=== PATIENT | female | born 1940 | race Caucasian/White ===

== ENCOUNTER 2025-08-21 17:51 | Inpatient (IN) | payer MEDICARE, SELFPAY ==
[2025-08-21] VITALS (8 sets, daily range): BP systolic 138–183; BP diastolic 86–104; PULSE 86–112; RESP 14–97; TEMP 36.9–37.3; O2SAT 95–100; BMI 30.7
--- NOTE | 2025-08-21 18:18 | XR_ITS ---
EXAMINATION: AP chest single view TECHNIQUE: AP portable upright chest single view Date and time: August 21, 2025, 1840 hours INDICATIONS: Shortness of breath today. FINDINGS: Normal heart size Mild vascular congestion. Prominent osteopenia IMPRESSION: No pneumonia or pulmonary edema Mild vascular congestion
--- NOTE | 2025-08-21 18:20 | EKG_ITS ---
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: : 1940 Requested By: Sara Valdez Order Number: [id number] Reading MD: Sara Valdez Measurements Intervals [place] Rate: 101 P: MO: QRS: -40 QRSD: 133 T: 23 QT: 378 QTc: 491 Interpretive Statements ATRIAL FIBRILLATION WITH RAPID VENTRICULAR RESPONSE LEFT AXIS DEVIATION [QRS AXIS < -30] RIGHT BUNDLE BRANCH BLOCK [120+ ms QRS DURATION, UPRIGHT V1, 40+ ms S IN I/aVL/V4/V5/V6] MODERATE VOLTAGE CRITERIA FOR LVH, CONSIDER NORMAL VARIANT [MEETS CRITERIA IN ONE OF: R(aVL), S(V1), R(V5), R(V5/V6)+S(V1)] POSSIBLE ANTERIOR MYOCARDIAL INFARCTION , PROBABLY OLD [30 ms Q WAVE IN V3/V4, OR R < 0.2 mV IN V4] No previous ECG available for comparison /store/S0/[id number].pdf
--- NOTE | 2025-08-21 18:20 | XR_ITS ---
Examination: CT brain head without contrast. 2-D sagittal coronal reconstructions Date and time of exam: August 21, 2025, 1858 hours INDICATIONS: Onset altered mental status today CTDI: vol (mGy): 47.4 DLP: (mGycm): 854 Technique: Multiple CT axial sections of the brain have been obtained, 5 mm slice thickness. Contrast has not been administered. 2-D sagittal, coronal reconstructions have been obtained Low dose protocols were performed. One or more of the following dose reduction techniques were used; automated exposure control, adjustment of the mA and/or KV according to patient size, use of iterative reconstruction technique. Findings: No significant ventricular enlargement. Extensive chronic microvascular white matter change Intra-axial or extra-axial hemorrhage density is not seen. No mass effect or midline shift Basal cisterns are not remarkable. Fourth ventricle is midline. Cranial vault intact. Impression: Negative for acute hemorrhage, mass effect or midline shift Advise clinical correlation and follow-up accordingly
--- NOTE | 2025-08-21 18:31 | PD.EDAMS ---
Altered Mental Status RME/HPI General Chief Complaint: Altered Mental Status Stated Complaint: AMS Time Seen by Provider: 08/21/25 18:18 Arrival date/time: 08/21/25 17:51 Limitations: no limitations RME / HPI RME / HPI narrative: Dr. Leal's Main ED Evaluation: 85yo female with a history of dementia, DM, paroxysmal aFib on Eliquis, CKD BIBA from [facility] presents to the ED for a chief complaint of AMS. Per EMS, patient has not been acting herself all day today. Normally, she is able to speak some words, but reportedly has not been communicating today. Per SNF paperwork, patient is normally AAOx2 with some confusion. Of note, patient is a DNR with selective treatment. Full ROS is unobtainable due to the patient's AMS. Related Data Allergies Allergy/AdvReac Type Severity Reaction Status Date / Time No Known Allergies Allergy Verified 08/21/25 18:01 Review of Systems Review of Systems ROS Unobtainable: unobtainable due to mental status ED Exam General Limitations: Present no limitations General appearance: Present alert and other (withdraws to pain stimuli, turns her head to voice) Head Head exam: Present atraumatic Eye Eye exam: Present normal appearance, PERRL (3 mm bilaterally) and EOMI ENT ENT exam: Present normal exam, normal oropharynx and mucous membranes dry Neck Neck exam: Present normal inspection, full ROM and trachea midline Chest Chest inspection: Present normal inspection and symmetric chest wall rise Respiratory Respiratory exam: Present normal lung sounds bilaterally Cardiovascular Cardiovascular exam: Present regular rate, normal rhythm and normal heart sounds Abdominal Exam Abdominal exam: Present soft Extremities Exam Extremities exam: Present normal inspection Neurological Exam Neurological exam: Present alert and other (withdraws to pain stimuli, turns her head to voice) Skin Skin exam: Present warm, dry, intact and other (decreased skin turgor) Course Course Course Narrative: CXR is ordered for determining the etiology of AMS. Quality Measures none Orders Category Date Time Status Admit to Inpatient Status Routine Admission 08/21/25 23:00 Active Patient Condition Routine Admission 08/21/25 22:59 Ordered Aspiration precautions NOW Care 08/21/25 23:02 Active Bladder Scan Q4H Care 08/21/25 22:59 Active COVID-19 Screening Questionnaire NOW Care 08/21/25 20:59 Active Decision to Admit X1 Care 08/21/25 20:59 Completed EKG (ED ONLY) *Do not use* NOW Care 08/21/25 18:20 Completed In and Out Catheter Q4H Care 08/21/25 22:59 Active Miscellaneous Nursing Order X1 Care 08/21/25 23:04 Active NPO NOW Care 08/21/25 23:02 Active Neuro Check Q4H Care 08/21/25 22:59 Active Notify provider NEEDED Care 08/21/25 22:59 Active Obtain weight daily Care 08/21/25 23:02 Active Strict Intake and Output Routine Care 08/21/25 23:02 Ordered Diet NPO (NOW) Diet 08/21/25 23:[address] head/brain wo con Stat Exams 08/21/25 18:20 Completed CXRP [XR chest 1V portable] Stat Exams 08/21/25 18:18 Completed EKG (ED Only) Stat Exams 08/21/25 18:20 Draft BNP [B-Type Natriuretic Peptide] Stat Lab 08/21/25 19:17 Completed CBC AM DRAW Lab 08/22/25 05:00 Ordered CBC AM DRAW Lab 08/23/25 05:00 Ordered CBC AM DRAW Lab 08/24/25 05:00 Ordered CBC Stat Lab 08/21/25 19:17 Completed CMP [Comprehensive Metabolic Panel] Stat Lab 08/21/25 19:17 Completed Comprehensive Metabolic Panel AM DRAW Lab 08/22/25 05:00 Ordered Comprehensive Metabolic Panel AM DRAW Lab 08/23/25 05:00 Ordered Comprehensive Metabolic Panel AM DRAW Lab 08/24/25 05:00 Ordered Lactate (Lactic Acid) Stat Lab 08/21/25 19:17 Completed Magnesium AM DRAW Lab 08/22/25 05:00 Ordered Magnesium AM DRAW Lab 08/23/25 05:00 Ordered Magnesium AM DRAW Lab 08/24/25 05:00 Ordered Phosphorous AM DRAW Lab 08/22/25 05:00 Ordered Phosphorous AM DRAW Lab 08/23/25 05:00 Ordered Phosphorous AM DRAW Lab 08/24/25 05:00 Ordered Troponin I Stat Lab 08/21/25 19:17 Completed Urinalysis Stat Lab 08/21/25 18:31 Completed Urine Culture Stat Lab 08/21/25 18:31 Received Valporic Acid (Depak)* Stat Lab 08/21/25 19:17 Received Acetaminophen Tab [Tylenol Tab] Med 08/21/25 22:59 Active 650 mg PO Q6HR PRN Enoxaparin [Lovenox] Med 08/22/25 09:00 Discontinued 40 mg SC QDAY Ondansetron Inj [Zofran Inj] Med 08/21/25 22:59 Active 4 mg IVP Q6H PRN Code Status Routine Oth 08/21/25 22:59 Ordered Oxygen Delivery PRN RT 08/21/25 22:59 Active Vital Signs Vital signs: Vital Signs Temperature 99.1 F 08/21/25 18:45 Pulse Rate 91 08/21/25 18:45 Respiratory Rate 16 08/21/25 18:45 Blood Pressure 147/88 H 08/21/25 18:45 Pulse Oximetry (%) 98 08/21/25 18:45 Oxygen Delivery Method Room Air 08/21/25 18:45 Altered Mental Status MDM Narrative MDM Narrative:: Scribe Attestation: 08/21/25 - Elba Haddad am scribing for and in the presence of Dr. Aponte. Elderly presents with 1 day history of change in her mental status she is normally alert and oriented x 2. Nurses send and however report does not show that she is hypotensive prior to arrival. The patient does not reported to be afebrile either. While in the emergency department the patient is noted to have slightly elevated blood pressure initially 147/88 otherwise no SIRS criteria. White count is 8.5 and otherwise normal. Hemoglobin is slightly decreased at 35. Otherwise glucose is normal. Troponin is negative. BNP slightly elevated but the patient clinically is not in CHF. Patient has evidence of UTI with 617 white cells with positive nitrates Patient noted to be on seizure medication and valproic acid is sent. Head CT reviewed interpreted by me. No evidence of bleed, fracture, or mass. Radiology interpretation is reviewed. Discussed with the resident on-call who agrees to admit the patient. Patient data External records reviewed:: [facility] previous records (Per chart review, patient has no previous ED visits or admissions to this facility.), EMS form and Detention records (Per [facility], patient is a DNR with selective treatment. Of note, patient is also on Eliquis 2.5mg BID.) Clinical information provided by:: patient and EMS Social determinants that could affect healthcare access:: housing (SNF resident) Patient has the following chronic illnesses:: dementia, DM, paroxysmal aFib, CKD How is presenting disease/condition affected by chronic disease/condition?: exacerbated by Evaluation data The following diagnostics were reviewed and interpreted by me:: lab results, radiology exam(s) and EKG tracing(s) Lab and/or radiology exams considered but not ordered:: none Interpretation Summary: EKG done at 1843, aFib, rate of 101, RBBB, LVH, QTc: 436, no STEMI, according to my interpretation. [facility] Report Signed Patient: LU MADERA [facility]. Record#: [id number] Birthdate: 1940 Age/Sex: 85 / F Location: [facility]X Attending Dr: Ordering Physician: Sara Leal MD Date of Service: 08/21/25 Procedure(s): XR chest 1V portable Accession Number(s): [id number] cc: Nadya Rebollar MD; Parish Head MD; Sara Leal MD~ EXAMINATION: AP chest single view TECHNIQUE: AP portable upright chest single view Date and time: August 21, 2025, 1840 hours INDICATIONS: Shortness of breath today. FINDINGS: Normal heart size Mild vascular congestion. Prominent osteopenia IMPRESSION: No pneumonia or pulmonary edema Mild vascular congestion Dictated By: Parish Head MD Signed By: <Electronically signed by Parish Head MD in OV> 08/21/25 1853 [facility] Signed Patient: LU MADERA [facility]. Record#: [id number] Birthdate: 1940 Age/Sex: 85 / F Location: SERX Attending Dr: Ordering Physician: Sara Leal MD Date of Service: 08/21/25 Procedure(s): CT head/brain wo con Accession Number(s): [id number] cc: Nadya Rebollar MD; Parish Head MD; Sara Leal MD~ Examination: CT brain head without contrast. 2-D sagittal coronal reconstructions Date and time of exam: August 21, 2025, 1858 hours INDICATIONS: Onset altered mental status today CTDI: vol (mGy): 47.4 DLP: (mGycm): 854 Technique: Multiple CT axial sections of the brain have been obtained, 5 mm slice thickness. Contrast has not been administered. 2-D sagittal, coronal reconstructions have been obtained Low dose protocols were performed. One or more of the following dose reduction techniques were used; automated exposure control, adjustment of the mA and/or KV according to patient size, use of iterative reconstruction technique. Findings: No significant ventricular enlargement. Extensive chronic microvascular white matter change Intra-axial or extra-axial hemorrhage density is not seen. No mass effect or midline shift Basal cisterns are not remarkable. Fourth ventricle is midline. Cranial vault intact. Impression: Negative for acute hemorrhage, mass effect or midline shift Advise clinical correlation and follow-up accordingly Dictated By: Parish Head MD Signed By: <Electronically signed by Parish Head MD in OV> 08/21/252023 Medications / Prescriptions Medications or Prescriptions considered but not ordered:: none Medication administrations:: Medication Administration History Acetaminophen (Acetaminophen 325 Mg Tablet) 650 mg PO Q6HR PRN PRN Reason: PAIN (1-3) OR FEVER > 100.4 Stop: 09/20/25 22:58 Apixaban (Apixaban 2.5 Mg Tablet) 2.5 mg PO BID JACKELINE Stop: 09/21/25 08:59 Dextrose (Dextrose 50%-Water Inj 50 Ml Syringe) 25 ml IV Q15MIN PRN PRN Reason: BG 50-70 responsive npo pt Stop: 09/20/25 23:50 Dextrose (Dextrose 50%-Water Inj 50 Ml Syringe) 50 ml IV Q15MIN PRN PRN Reason: BG <50 OR BG <70 & pt unresponsive Stop: 09/20/25 23:50 Glucagon (Glucagon Inj 1 Mg Vial) 1 mg IM Q15MIN PRN PRN Reason: BG <70, and no IV access Ceftriaxone Sodium/Dextrose (Rocephin/D5w 1gm Iv Premix) 1 gm in 50 mls @ 100 mls/hr IV QDAY JACKELINE Stop: 08/28/25 23:07 Last Infusion: 08/22/25 00:06 Dose: Infused Documented By: Admin: 08/21/25 23:34 Dose: 100 mls/hr Documented By: MULUGETA Lactated Ringer's (Lactated Ringers) 1,000 mls @ 75 mls/hr IV .[id number] [facility] Stop: 08/22/25 15:34 Last Admin: 08/22/25 02:23 Dose: 75 mls/hr Documented By: MULUGETA Insulin Human Lispro (Insulin Lispro (Admelog) 1 Unit/0.01 Ml Unit) 0 unit SC Q6H [facility]; Protocol Stop: 09/20/25 23:44 Last Admin: 08/22/25 00:03 Dose: Not Given Documented By: MULUGETA Non-Admin Reason: Change of Condition Labetalol HCl (Labetalol Inj 5 Mg/Ml Vial 4 Ml) 10 mg IVP Q4H PRN PRN Reason: SBP >170 Stop: 09/20/25 23:04 Metoprolol Tartrate (Metoprolol Tartrate 25 Mg Tablet) 25 mg PO BID [facility] Stop: 09/21/25 08:59 Ondansetron HCl (Ondansetron Inj 2 Mg/Ml Inj 2 Ml) 4 mg IVP Q6H PRN; Protocol PRN Reason: NAUSEA OR VOMITING Stop: 09/20/25 22:58 Polyethylene Glycol (Polyethylene Glycol 17 Gm Packet) 17 gm PO QDAY [facility] Stop: 09/21/25 08:59 Sennosides (Senna Tablet) 1 tab PO QDAY [facility]; Protocol Stop: 09/21/25 08:59 Discontinued Medications Enoxaparin Sodium (Enoxaparin Sod Inj 40 Mg/0.4 Ml Syringe) 40 mg SC QDAY [facility] Stop: 09/05/25 08:59 Heparin Sodium (Porcine) (Heparin Sod Inj 5000 Unit/Ml Vial) 5,000 unit SC Q12HR JACKELINE Stop: 09/04/25 23:29 Last Admin: 08/21/25 23:35 Dose: 5,000 unit Documented By: MULUGETA Co-signed By: DANY Lactated Ringer's (Lactated Ringers) 1,000 mls @ 999 mls/hr IV .Q1H1M ONE Stop: 08/22/25 02:07 Last Infusion: 08/22/25 02:24 Dose: Infused Documented By: Admin: 08/22/25 01:22 Dose: 999 mls/hr Documented By: MULUGETA Metoprolol Tartrate (Metoprolol Tartrate 25 Mg Tablet) 25 mg PO BID JACKELINE Stop: 09/20/25 23:14 Last Admin: 08/22/25 00:56 Dose: Not Given Documented By: MULUGETA Non-Admin Reason: Cancelled by Provider see above Consultations Consultation(s) initiated? (list below): Yes Consultation #1 (Physician, Specialty, Details): Discussed case with the resident physician, attending Dr. Jefferson from Hospitalist service regarding admission. Discussed patients ED course, exam findings, labs, and radiology results. The Hospitalist agrees to accept the patient for admission. Time: 20:52 Diagnosis Differential diagnosis altered mental status: other (UTI, dehydration, electrolyte abnormality) Most likely diagnosis given after review of the tests above:: altered mental status, UTI Admission Indicated Admission indicated?: indicated Admission Request Was there a request for admission?: Yes Admission Attestation Admission request attestation: Discussed case with [] from Hospitalist service regarding admission. Discussed patients ED course, exam findings, labs, and radiology results. The Hospitalist [agrees,declines] to accept the patient for admission. Disposition Plan Disposition Plan: Admit Discharge Plan Plan Patient Disposition: Admit Acute Care w/in Hospital Patient condition on transfer: Stable Problem List Clinical Impression: Altered mental status, UTI (urinary tract infection)
[2025-08-21 18:45] LABS: Collection Type, Urine Catheter; Squamous Epithelial Cell,Urine 0 /hpf (0-5)
[2025-08-21 18:54] LABS: Amorphous Crystals,Urine Present (Absent); Bilirubin,Urine Negative (Negative); Blood,Urine 3+ (Negative); Color,Urine Yellow (Lt Yel-Yel); Glucose, Urine Negative (Negative); Ketones,Urine Negative (Negative); Leukocyte Esterase,Urine Positive (Negative); Nitrite,Urine Positive (Negative); PH,Urine 7.0 (5.0-7.0); Protein,Urine 3+ (Neg - Trace); RBC,Urine 328 /hpf (0-3); Specific Gravity,Urine 1.020 (1.001-1.035); Transitional Epi Cells,Urine 2 /hpf (0-5); Urobilinogen,Urine 2.0 mg/dL (0.0-1.0); WBC,Urine 617 /hpf (0-5)
[2025-08-21 18:56] LABS: Clarity,Urine Turbid (Clear/Hazy)
[2025-08-21 19:28] LABS: Lactate (Lactic Acid) 1.6 mMol/L (0.4-2.0)
[2025-08-21 19:34] LABS: Basophils # (Auto) 0.1 Thou/mm3 (0.0-0.2); Basophils % (Auto) 1 % (0-2.5); Eosinophils # (Auto) 0.2 Thou/mm3 (0.0-0.5); Eosinophils % (Auto) 3 % (0-10); Hematocrit 35.6 % (36.0-46.0); Hemoglobin 11.5 g/dL (12.0-16.0); Immature Granulocytes Auto 0.04 Thou/mm3 (0.00-0.00); Lymphocytes # (Auto) 2.7 Thou/mm3 (1.0-4.8); Lymphocytes % (Auto) 32 % (10-50); Mean Corpuscular HGB Conc 32.3 g/dl (31.0-37.0); Mean Corpuscular Hemoglobin 29.8 pg (25.0-35.0); Mean Corpuscular Volume 92 fL (80-100); Monocytes # (Auto) 0.8 Thou/mm3 (0.0-0.8); Monocytes % (Auto) 9 % (0-12); Neutrophils # (Auto) 4.7 Thou/mm3 (1.8-7.7); Neutrophils % (Auto) 55 % (37-80); Nucleated Red Blood Cell # 0.00 Thou/mm3 (0.00-0.00); Nucleated Red Blood Cell % 0 /100 WBC (0); Platelet Count 302 Thou/mm3 (140-440); RDW Standard Deviation 47.8 fL (36.4-46.3); Red Blood Count 3.86 Miln/mm3 (4.00-5.20); White Blood Count 8.5 Thou/mm3 (3.6-11.0)
[2025-08-21 19:57] LABS: B-Type Natriuretic Peptide 234 pg/mL (0-100)
[2025-08-21 19:59] LABS: Alanine Aminotransferase 12 U/L (10-49); Albumin, Serum 3.8 gm/dL (3.4-4.8); Albumin/Globulin Ratio 1.3 (1.2-2.2); Alkaline Phosphatase 77 U/L (46-116); Anion Gap 10 (7-16); Aspartate Amino Transferase 19 U/L (0-34); BUN/Creatinine Ratio 10 Ratio (12-20); Bilirubin,Total 0.5 mg/dL (0.3-1.2); Blood Urea Nitrogen 9 mg/dL (9-23); Calcium 9.0 mg/dL (8.3-10.6); Calcium (Corrected) 9.2 mg/dL (8.5-10.1); Carbon Dioxide 23.0 mMol/L (20.0-31.0); Chloride 110 mMol/L (98-107); Creatinine (Component) 0.9 mg/dL (0.6-1.3); Estimated Creatinine Clearance 49.8 mL/min (>60); Globulin 3.0 gm/dL (2.3-3.5); Glucose 96 mg/dL (74-106); Osmolality,Calculated 283 (275-295); Potassium 4.2 mMol/L (3.4-5.1); Sodium 143 mMol/L (136-145); Total Protein 6.8 gm/dL (5.7-8.2); Troponin I < 0.020 ng/mL (0.0-0.045); eGFR > 60 See Note
--- NOTE | 2025-08-21 21:41 | PC.NURSE ---
DR KIRBY AND DR PAL AT PTS [facility] GETTING PTS HISTORY FROM PTS SISTER WHO IS NEXT OF KIN. PT STABLE
--- NOTE | 2025-08-21 22:59 | PD.RESHP ---
Documentation for date of: 08/21/25 [facility] History of Present Illness History of present illness: 85-year-old female with a history of dementia (diagnosed in 2023), type 2 diabetes mellitus, paroxysmal atrial fibrillation (on Eliquis), chronic kidney disease, bipolar I disorder, borderline personality disorder, and recurrent urinary tract infections presents to the ED with altered mental status. Per her sister, Becky, who is the medical point of contact, the patient has been markedly more lethargic and nonresponsive since this morning, exhibiting snoring, a glazed look, and excessive sleepiness. Patient is very hard of hearing. According to her SNF paperwork, patient is normally AAOx2, with some baseline confusion, but today has not been communicating or responding as usual. ED course: Initial vitals include T99.1, BP 147/88, HR 91, RR 16, O2 sat 98% on 2 L. Notable labs include WBC 8.5, hemoglobin 11.5, potassium 4.2, BUN 9, creatinine 0.9, lactic acid 1.6, troponin negative, LFTs within normal range. UA showed nitrite and leuk esterase positive, and WBC elevated at 617. EKG showed atrial fibrillation with RVR rate 101, QTc 491 MS. Past medical history: As stated above. Allergies: NKDA Family history: Noncontributory. Social history: No alcohol use, no smoking, no illicit drug use. Patient admitted for acute encephalopathy likely secondary to UTI and A-fib with RVR. Review of Systems Review of Systems ROS Unobtainable: unobtainable due to mental status Exam Vital Signs Temp Pulse Resp BP Pulse Ox O2 Del Method 98.4 F 99 19 138/99 H 100 Room Air 08/21/25 20:38 08/21/25 22:14 08/21/25 22:14 08/21/25 22:14 08/21/25 22:14 08/21/25 22:14 Narrative Exam General: Mentation unable to assess due to underlying condition, no acute distress, nonverbal and not following commands HEENT: NC/AT, mucous membranes dry, bilateral sclera anicteric Cardiovascular: regular rate and rhythm, S1/S2 present, no murmurs appreciated Pulmonary: clear to auscultation bilaterally, no rales/rhonchi/wheezes Abdominal: soft, non-tender, non-distended, no rebound/guarding, normal bowel sounds present, no CVA tenderness Musculoskeletal: normal ROM, no peripheral edema Skin: warm and dry, intact, no rashes, Neuro: CN II-XII intact, no focal deficits Results: Labs 08/22/25 04:20 08/22/25 04:20 Labs: Short CBC 08/21/25 Range/Units 19:17 WBC 8.5 (3.6-11.0) Thou/mm3 Hgb 11.5 L (12.0-16.0) g/dL Hct 35.6 L (36.0-46.0) % Plt Count 302 (140-440) Thou/mm3 BMP 08/21/25 19:17 Sodium 143 Potassium 4.2 Chloride 110 H Carbon Dioxide 23.0 BUN 9 Creatinine 0.9 Glucose 96 Calcium 9.0 Cardiac Enzymes 08/21/25 Range/Units 19:17 Troponin I < 0.020 (0.0-0.045) ng/mL Liver Function 08/21/25 Range/Units 19:17 Total Bilirubin 0.5 (0.3-1.2) mg/dL AST 19 (0-34) U/L ALT 12 (10-49) U/L Alkaline Phosphatase 77 (46-116) U/L Albumin 3.8 (3.4-4.8) gm/dL Urine 08/21/25 Range/Units 18:31 Urine Color Yellow (Lt Yel-Yel) Urine Clarity Turbid A (Clear/Hazy) Urine pH 7.0 (5.0-7.0) Ur Specific [place] 1.020 (1.001-1.035) Urine Protein 3+ A (Neg - Trace) Urine Glucose (UA) Negative (Negative) Quality Measures Quality Measures VTE prophylaxis Advance care planning discussed with:: legal surragate and sibling Medications Home Medications and Allergies Home Medications ?Medication ?Instructions ?Recorded ?Confirmed ?Type apixaban 2.5 mg tablet (Eliquis) 2.5 mg PO BID 08/22/25 08/22/25 History divalproex 125 mg tablet,delayed 125 mg PO Q12H 08/22/25 08/22/25 History release (Depakote) megestrol 400 mg/10 mL (10 mL) 400 mg PO BID 08/22/25 08/22/25 History oral suspension metoprolol tartrate 25 mg tablet 25 mg PO BID 08/22/25 08/22/25 History multivitamin (Daily Multi-Vitamin 1 tab PO QAM 08/22/25 08/22/25 History tablet) Allergies Allergy/AdvReac Type Severity Reaction Status Date / Time No Known Allergies Allergy Verified 08/21/25 18:01 Assessment & Plan Plan 85-year-old female with a history of dementia (diagnosed in 2023), type 2 diabetes mellitus, paroxysmal atrial fibrillation (on Eliquis), CKD, bipolar I disorder, borderline personality disorder, and recurrent UTIs presents to the ED with altered mental status. Patient admitted for acute encephalopathy likely secondary to UTI, and A-fib with RVR. #Acute encephalopathy #History of dementia DDx: Infectious (CAP, UTI), metabolic (electrolyte derangement, uremia, hypo/hyperglycemia), hypoxic (respiratory failure, aspiration, MARCO ANTONIO), endocrine (thyroid, adrenal dysfunction), toxic/drug-induced, neurologic (CVA, seizures, brain mass), psychiatric (acute delirium, depression, psychosis) Patient came in and found to have 2 or more SIRS criteria and was evaluated for sepsis. However, based upon further work-up, sepsis was ruled out. Temperature on arrival 99.1 WBC 8.5 with no left shift Head CT within normal limits Chest x-ray clear VBG showed pH 7.5, pCO2 33 Patient takes Depakote for bipolar disorder, unsure at this time if taking too much Depakote recently Patient likely has acute encephalopathy secondary to acute cystitis Plan: ? Urine cultures pending ? TSH pending ? Valproic acid level pending ? Correct electrolytes as necessary #Acute cystitis #History of recurrent UTIs in the past UA on admission showed nitrite and leuk esterase positive, and WBC elevated at 617 Patient has no CVA tenderness and no abdominal pain on palpation No systemic signs Plan ? Ceftriaxone 1 g IV daily ? KUB ordered ? Consider abdominal CT if worsening symptoms and concern for pyelonephritis ? Follow-up on urine culture #A-fib, with RVR #Severe hypertension [id number]: 3 Rate: Uncontrolled Rhythm: Irregular AC: Eliquis 2.5 mg twice daily Patient takes metoprolol to tartrate 25 mg twice daily Plan ? Resume Eliquis if passes swallow eval ? Continue metoprolol tartrate 25 mg twice daily for rate control ? Labetalol 10 mg IV every 4 hours as needed for systolic blood pressure greater than 170 #Moderate QTc prolongation EKG on arrival showed QTc 470 ms Patient at risk for life-threatening arrhythmias, particularly torsades de points Plan ? Keep potassium above 4 and magnesium above 2 ? Telemetry ? Avoid QTc prolonging drugs ? EKG in a.m. 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 Monitor renal function daily ? Encourage oral hydration ? Avoid nephrotoxic drugs ? Renally dose medications as needed #Type 2 diabetes mellitus Last A1c unknown Does not appear to be on any medications Plan ? A1c level ordered ? Insulin sliding scale ordered ? Hypoglycemia protocol in place #Bipolar 1 disorder Patient takes Depakote delayed release 125 mg twice daily Plan ? Resume once valproic acid levels come back #Constipation Patient takes Fleet enema and milk of magnesia Plan ? Bowel regimen ordered, monitor for bowel movements Health Maintenance: Diet: N.p.o. GI prophylaxis: None indicated DVT prophylaxis: Eliquis 2.5mg twice daily, however if does not pass swallow eval start heparin SC Antibiotics: Ceftriaxone CODE STATUS: DNR Disposition: Telemetry Case discussed with my attending Dr. Jefferson, and senior resident, Dr. Megan Edwards MD PGY-1 Attending Provider Attestation/Addendum After examination of the patient and review of the clinical data I feel that this patient needs admission to the hospital for further treatment/evaluation. Plan of care discussed with patient and is in agreement. I Lilian Jefferson MD, attest that I was physically present for hernández portions of evaluation, and examined patient, labs and imagings and plan of care were discussed with IM residents team, and I agree with the findings and plans documented above.
--- NOTE | 2025-08-21 23:05 | XR_ITS ---
Examination: Abdomen AP single view Technique: AP portable supine abdomen, single view Exam date and time: August 21, 2025, 11:07 p.m. INDICATIONS: Constipation and urinary retention this week FINDINGS: Moderate stool throughout the colon No obstruction No free air Surgical clips upper right abdomen IMPRESSION: Nonobstructive bowel gas pattern
[2025-08-21] MEDS: cefTRIAXone/D5w 1gm IV premix 1 GM/50 ML BAG IV (23:34)
[2025-08-21] MEDS: HEPARIN SOD INJ 5000 UNIT/ML VIAL SC (23:35)
[2025-08-22] VITALS (10 sets, daily range): BP systolic 109–173; BP diastolic 79–106; PULSE 72–132; RESP 14–100; TEMP 36.1–36.8; O2SAT 94–99; BMI 31.1
[2025-08-22 00:31] LABS: Base Excess, Venous 3 (-3-3); O2 Saturation, Venous 99 % (96-97); PCO2, Venous 33 mmHg (36-56); PO2, Venous 110 mmHg (15-58); pH, Venous 7.50 (7.33-7.66)
[2025-08-22] MEDS: RINGERS LACTATED 1000 ML 1,000 ML 999 ML IV (01:22)
[2025-08-22] MEDS: RINGERS LACTATED 1000 ML 1,000 ML 75 ML IV (02:23)
[2025-08-22 04:29] LABS: Basophils # (Auto) 0.1 Thou/mm3 (0.0-0.2); Basophils % (Auto) 1 % (0-2.5); Eosinophils # (Auto) 0.3 Thou/mm3 (0.0-0.5); Eosinophils % (Auto) 3 % (0-10); Hematocrit 35.2 % (36.0-46.0); Hemoglobin 11.5 g/dL (12.0-16.0); Immature Granulocytes Auto 0.03 Thou/mm3 (0.00-0.00); Lymphocytes # (Auto) 2.3 Thou/mm3 (1.0-4.8); Lymphocytes % (Auto) 26 % (10-50); Mean Corpuscular HGB Conc 32.7 g/dl (31.0-37.0); Mean Corpuscular Hemoglobin 30.0 pg (25.0-35.0); Mean Corpuscular Volume 92 fL (80-100); Monocytes # (Auto) 0.8 Thou/mm3 (0.0-0.8); Monocytes % (Auto) 9 % (0-12); Neutrophils # (Auto) 5.4 Thou/mm3 (1.8-7.7); Neutrophils % (Auto) 61 % (37-80); Nucleated Red Blood Cell # 0.00 Thou/mm3 (0.00-0.00); Nucleated Red Blood Cell % 0 /100 WBC (0); Platelet Count 279 Thou/mm3 (140-440); RDW Standard Deviation 46.9 fL (36.4-46.3); Red Blood Count 3.83 Miln/mm3 (4.00-5.20); White Blood Count 8.9 Thou/mm3 (3.6-11.0)
[2025-08-22 04:52] LABS: Alanine Aminotransferase 11 U/L (10-49); Albumin, Serum 3.8 gm/dL (3.4-4.8); Albumin/Globulin Ratio 1.3 (1.2-2.2); Alkaline Phosphatase 78 U/L (46-116); Anion Gap 8 (7-16); Aspartate Amino Transferase 17 U/L (0-34); BUN/Creatinine Ratio 14 Ratio (12-20); Bilirubin,Total 0.4 mg/dL (0.3-1.2); Blood Urea Nitrogen 11 mg/dL (9-23); Calcium 8.9 mg/dL (8.3-10.6); Calcium (Corrected) 9.1 mg/dL (8.5-10.1); Carbon Dioxide 28.0 mMol/L (20.0-31.0); Chloride 107 mMol/L (98-107); Creatinine (Component) 0.8 mg/dL (0.6-1.3); Estimated Creatinine Clearance 56.0 mL/min (>60); Globulin 2.9 gm/dL (2.3-3.5); Glucose 102 mg/dL (74-106); Magnesium 1.9 mg/dL (1.6-2.6); Osmolality,Calculated 284 (275-295); Phosphorous 3.8 mg/dL (2.4-5.1); Potassium 4.1 mMol/L (3.4-5.1); Sodium 143 mMol/L (136-145); Thyroid Stimulating Hormone 3.95 uIU/mL (0.55-4.78); Total Protein 6.7 gm/dL (5.7-8.2); eGFR > 60 See Note
--- NOTE | 2025-08-22 05:00 | EKG_ITS ---
[facility] Test Date: 2025-08-22 Pat Name: LU MADERA Department: Room: [facility] Gender: Female Simulation Developer: [facility] : 1940 Requested By: Brock Edwards Order Number: [id number] Reading MD: Brock Edwards Measurements Intervals [place] Rate: 106 P: SD: QRS: -50 QRSD: 141 T: 51 QT: 372 QTc: 494 Interpretive Statements ATRIAL FIBRILLATION WITH RAPID VENTRICULAR RESPONSE RIGHT BUNDLE BRANCH BLOCK LEFT ANTERIOR FASCICULAR BLOCK Compared to ECG 08/21/2025 18:43:05 Left anterior fascicular block now present Left-axis deviation no longer present Myocardial infarct finding no longer present /store/S0/[id number]/ecg/[id number].pdf
[2025-08-22 05:01] LABS: Glucose Estimated Average 137 mg/dL (80-131); Hemoglobin A1C 6.4 % Hgb (4.8-6.0)
[2025-08-22] MEDS: Magnesium Sulfate 2 GM Ivpb 2 GM/50 ML BAG IV (09:04)
[2025-08-22 10:10] LABS: Troponin I < 0.020 ng/mL (0.0-0.045)
[2025-08-22] MEDS: cefTRIAXone/D5w 1gm IV premix 1 GM/50 ML BAG IV (10:47)
[2025-08-22 11:04] LABS: Folate > 24.00 ng/mL (>5.38); Vitamin B12 834 pg/mL (211-911)
--- NOTE | 2025-08-22 11:16 | PCS.ST ---
Swallow Yared attempted x2 this AM. Pt not able to participate. Will try again later today.
[2025-08-22 11:45] LABS: Ammonia 21 uMol/L (11-32)
--- NOTE | 2025-08-22 13:41 | ESPR_ITS ---
<Statement entered by Brock Wallis MD - 08/22/25 13:43> Overnight admission for acute encephalopathy secondary to urinary tract infection. Upon evaluation at bedside patient difficult to arouse but she was responsive to pain and does open her eyes spontaneously. Vital signs stable. She was started on IV antibiotics but she did not pass her swallow evaluation so p.o. medications will be held at this time. She does have history of atrial fibrillation on metoprolol and Eliquis of note. Repeat troponin remained negative and repeat EKG shows atrial fibrillation with pulse of 106. Will follow-up urine cultures and tailor antibiotics pending results. Ammonia, B12, and folate all within normal limits. ----- Note reviewed and agree with care plan as documented. Please refer to the note below for further details. Plan discussed with attending physician Dr. Obdulio Wallis MD PGY-2 Internal Medicine Documentation for date of: 08/22/25 Subjective Subjective Interval history: Patient is overnight and admitted for acute encephalopathy secondary to UTI. Patient was seen and examined at bedside today patient was noted to be severely obtunded, nonresponsive. However responsive to pain and sternal rub. Vitals significant for high BP of 153/84 patient saturating well on room air. Labs significant for magnesium 1.9, repleted with 2gm Mag sulfate. Patient is current receiving IV antibiotic however she failed another swallow screen. Hence her oral medication are on hold. Speech therapy referral was done. Ordered ammonia, folate, B12 for which was all came back all within normal limit. Will consult neurology tomorrow if patient is still obtunded. Exam Vital Signs Temp Pulse Resp BP Pulse Ox O2 Del Method 97.7 F 87 19 153/84 H 96 Room Air 08/22/25 12:00 08/22/25 12:00 08/22/25 12:00 08/22/25 12:00 08/22/25 12:00 08/22/25 12:00 Narrative Exam General: Unable to assess since the patient nonresponsive, obtunded however responsive to sternal rub and pain. Skin: Warm, dry, intact. No rash or ecchymoses. Head: Normocephalic, atraumatic. Eye: Normal conjunctiva, PERRL. Throat: Oral mucosa moist. No obvious lesions in oropharynx. Cardiovascular: Regular rate and rhythm, no murmur, +S1/S2. Respiratory: Lungs are clear to auscultation, respirations unlabored, no crackles, no wheezing. Gastrointestinal: Soft, nontender, non-distended. No guarding or rebound tenderness. Extremities: No edema, no cyanosis, no clubbing. Neuro: Unable to assess fully Objective Labs 08/22/25 04:20 08/22/25 04:20 Labs: Laboratory Results - last 24 hr 08/21/25 08/21/25 08/22/25 18:31 19:17 00:19 WBC 8.5 RBC 3.86 L Hgb 11.5 L Hct 35.6 L MCV 92 MCH 29.8 MCHC 32.3 RDW Std Deviation 47.8 H Plt Count 302 Neut % (Auto) 55 Lymph % (Auto) 32 [place] % (Auto) 9 Eos % (Auto) 3 Baso % (Auto) 1 Neut # (Auto) 4.7 Lymph # (Auto) 2.7 [place] # (Auto) 0.8 Eos # (Auto) 0.2 Baso # (Auto) 0.1 Immature Gran # (Auto) 0.04 H Absolute Nucleated RBC 0.00 Immature Gran % 1 H Nucleated RBC % 0 VBG pH 7.50 VBG pCO2 33 L VBG pO2 110 H VBG O2 Sat (Viktoria) 99 H VBG Base Excess 3 Sodium 143 Potassium 4.2 Chloride 110 H Carbon Dioxide 23.0 Anion Gap 10 BUN 9 Creatinine 0.9 Estim Creat Clear Calc 49.8 L eGFR > 60 BUN/Creatinine Ratio 10 L Glucose [address] Glu mg/dL Hemoglobin A1c Calculated Osmolality 283 Lactic Acid 1.6 Calcium 9.0 Corrected Calcium 9.2 Phosphorus Magnesium Total Bilirubin 0.5 AST 19 ALT 12 Alkaline Phosphatase 77 Ammonia Troponin I < 0.020 B-Natriuretic Peptide 234 H Total Protein 6.8 Albumin 3.8 Globulin 3.0 Albumin/Globulin Ratio 1.3 Vitamin B12 Folate TSH Ur Collection Type Catheter Urine Color Yellow Urine Clarity Turbid A Urine pH 7.0 Ur Specific [place] 1.020 Urine Protein 3+ A Urine Glucose (UA) Negative Urine Ketones Negative Urine Blood 3+ A Urine Nitrite Positive Urine Bilirubin Negative Urine Urobilinogen (Auto) 2.0 Ur Leukocyte Esterase Positive Urine RBC 328 H Urine WBC 617 H Ur Squamous Epith Cells 0 Ur Transition Epith Cell 2 Amorphous Crystals Present A Urine Bacteria None 1208/22/25 08/22/25 04:20 09:44 10:50 WBC 8.9 RBC 3.83 L Hgb 11.5 L Hct 35.2 L MCV 92 MCH 30.0 MCHC 32.7 RDW Std Deviation 46.9 H Plt Count 279 Neut % (Auto) 61 Lymph % (Auto) 26 [place] % (Auto) 9 Eos % (Auto) 3 Baso % (Auto) 1 Neut # (Auto) 5.4 Lymph # (Auto) 2.3 [place] # (Auto) 0.8 Eos # (Auto) 0.3 Baso # (Auto) 0.1 Immature Gran # (Auto) 0.03 H Absolute Nucleated RBC 0.00 Immature Gran % 0 Nucleated RBC % 0 VBG pH VBG pCO2 VBG pO2 VBG O2 Sat (Viktoria) VBG Base Excess Sodium 143 Potassium 4.1 Chloride 107 Carbon Dioxide 28.0 Anion Gap 8 BUN 11 Creatinine 0.8 Estim Creat Clear Calc 56.0 L eGFR > 60 BUN/Creatinine Ratio [address] Glu mg/dL 137 H Hemoglobin A1c 6.4 H Calculated Osmolality 284 Lactic Acid Calcium 8.9 Corrected Calcium 9.1 Phosphorus 3.8 Magnesium 1.9 Total Bilirubin 0.4 AST 17 ALT 11 Alkaline Phosphatase 78 Ammonia 21 Troponin I < 0.020 B-Natriuretic Peptide Total Protein 6.7 Albumin 3.8 Globulin 2.9 Albumin/Globulin Ratio 1.3 Vitamin B12 834 Folate > 24.00 TSH 3.95 Ur Collection Type Urine Color Urine Clarity Urine pH Ur Specific [place] Urine Protein Urine Glucose (UA) Urine Ketones Urine Blood Urine Nitrite Urine Bilirubin Urine Urobilinogen (Auto) Ur Leukocyte Esterase Urine RBC Urine WBC Ur Squamous Epith Cells Ur Transition Epith Cell Amorphous Crystals Urine Bacteria ABG Interpretation ABG results: 08/22/25 00:19 VBG pH 7.50 VBG pCO2 33 L VBG pO2 110 H VBG Base Excess 3 Quality Measures Quality Measures VTE prophylaxis Advance care planning discussed with:: other Assessment & Plan Assessment Current Active Medications: Generic Name Dose Route Start Last Admin Trade Name Freq PRN Reason Stop Dose Admin Acetaminophen 650 mg 08/21/25 22:59 Acetaminophen 325 Mg Tablet PO 09/20/25 22:58 Q6HR PRN PAIN (1-3) OR FEVER > 100.4 Apixaban 2.5 mg 08/22/25 09:00 08/22/25 09:05 Apixaban 2.5 Mg Tablet PO 09/21/25 08:59 Not Given BID JACKELINE Dextrose 25 ml 08/21/25 23:51 Dextrose 50%-Water Inj 50 Ml Syringe IV 09/20/25 23:50 Q15MIN PRN BG 50-70 responsive npo pt Dextrose 50 ml 08/21/25 23:51 Dextrose 50%-Water Inj 50 Ml Syringe IV 09/20/25 23:50 Q15MIN PRN BG <50 OR BG <70 & pt unresponsive Glucagon 1 mg 08/21/25 23:51 Glucagon Inj 1 Mg Vial IM Q15MIN PRN BG <70, and no IV access Ceftriaxone Sodium/Dextrose 1 gm in 50 mls @ 100 mls/hr 08/21/25 23:08 08/22/25 10:47 Rocephin/D5w 1gm Iv Premix IV 08/28/25 23:07 100 mls/hr QDAY JACKELINE Administration Lactated Ringer's 1,000 mls @ 75 mls/hr 08/22/25 02:15 08/22/25 02:23 Lactated Ringers IV 08/22/25 15:34 75 mls/hr .[id number] JACKELINE Administration Insulin Human Lispro 0 unit 08/21/25 23:45 08/22/25 12:18 Insulin Lispro (Admelog) 1 Unit/0.01 Ml Unit SC 09/20/25 23:44 Not Given Q6H [facility] Protocol Labetalol HCl 10 mg 08/22/25 09:15 Labetalol Inj 5 Mg/Ml Vial 4 Ml IVP 09/20/25 23:04 Q4H PRN SBP >170 Metoprolol Tartrate 25 mg 08/22/25 09:00 08/22/25 09:05 Metoprolol Tartrate 25 Mg Tablet PO 09/21/25 08:59 Not Given BID JACKELINE Ondansetron HCl 4 mg 08/21/25 22:59 Ondansetron Inj 2 Mg/Ml Inj 2 Ml IVP 09/20/25 22:58 Q6H PRN NAUSEA OR VOMITING Protocol Polyethylene Glycol 17 gm 08/22/25 09:00 08/22/25 09:05 Polyethylene Glycol 17 Gm Packet PO 09/21/25 08:59 Not Given QDAY [facility] Sennosides 1 tab 08/22/25 09:00 08/22/25 09:05 Senna Tablet PO 09/21/25 08:59 Not Given QDAY [facility] Protocol Plan 85-year-old female with a history of dementia (diagnosed in 2023), type 2 diabetes mellitus, paroxysmal atrial fibrillation (on Eliquis), bipolar I disorder, borderline personality disorder, and recurrent UTIs presents to the ED with altered mental status. Patient admitted for acute encephalopathy likely secondary to UTI, and A-fib with RVR. Acute encephalopathy 2/2 UTI History of recurrent UTIs History of dementia DDx: Infectious (CAP, UTI), metabolic (electrolyte derangement, uremia, hypo/hyperglycemia), hypoxic (respiratory failure, aspiration, MARCO ANTONIO), endocrine (thyroid, adrenal dysfunction), toxic/drug-induced, neurologic (CVA, seizures, brain mass), psychiatric (acute delirium, depression, psychosis) Patient came in and found to have 2 or more SIRS criteria and was evaluated for sepsis. However, based upon further work-up, sepsis was ruled out.Temperature on arrival 99.1WBC 8.5 with no left shift Head CT within normal limits. Chest x-ray clear. VBG showed pH 7.5, pCO2 33 - Patient takes Depakote for bipolar disorder, unsure at this time if taking too much Depakote recently - Ammonia, B12, folate all within normal limit. - Patient failed swallow screen, hence Eliquis and metoprolol is currently on hold. Plan - Will consult neurology tomorrow?patient mentation is still poor - Plan to administer Eliquis IV in next 48 hours if patient's still continues fail swallow screen - Speech therapy referral - Valproic acid level, pending - Ceftriaxone 1 g IV daily for UTI (08/21- ? Correct electrolytes as necessary A-fib, with RVR Severe hypertension [id number]: 3 Rate: Uncontrolled Rhythm: Irregular Home medications: Eliquis 2.5 mg twice daily PO and metoprolol to tartrate 25 mg twice daily PO Plan ? held Eliquis PO as failed swallow eval ? resume metoprolol tartrate 25 mg po twice daily for rate control when tolerate PO ? Labetalol 10 mg IV every 4 hours as needed for systolic blood pressure greater than 170 Non-onsulin dependent Type 2 diabetes mellitus 08/22/25- A1c 6.4. Does not appear to be on any medications Plan ? Insulin sliding scale ? Hypoglycemia protocol in place. Bipolar 1 disorder Patient takes Depakote delayed release 125 mg twice daily Plan ? Resume once valproic acid levels come back Constipation Patient takes Fleet enema and milk of magnesia KUB showed; Moderate stool throughout the colon and nonobstructive bowel gas pattern Plan ? Bowel regimen ordered - Continue to monitor for bowel movements Moderate QTc prolongation EKG on arrival showed QTc 470 ms Patient at risk for life-threatening arrhythmias, particularly torsades de points Plan ? Keep potassium above 4 and magnesium above 2 ? Telemetry ? Avoid QTc prolonging drugs ? EKG in a.m. ordered Hospital management: Lines: peripheral IV Diet: npo Bowel: Senna and MIRALAX DVT prophylaxis: Heparin SC, however if passed swallow screen stop and resume eliquis 2.5mg Disposition: Telemetry for acute cephalopathy, A-fib RVR CODE STATUS: DNR Patient seen and assessed under supervision of attending physician Dr. Mak and discuss with senior resident Dr. Arsenio Wallis PGY-2 Anay Leonard MD PGY-1, Internal Medicine Please note: this document was transcribed using voice recognition technology; minor inaccuracies may be present. Attending Provider Attestation/Addendum I have seen and examined the patient. I was physically present for the hernández portions of the services provided including history, physical exam, diagnosis, treatment plans and orders. I agree with assessment and plan of care as documented by residents. Patient is an 85 years old female with past medical history of dementia, type 2 diabetes mellitus, paroxysmal A-fib, CKD, bipolar 1 disorder, borderline personality disorder and recurrent UTI who is oriented x 2 at baseline presented [facility] the ED from SNF with complaint of change in mentation, and decreased responsiveness. She was admitted overnight for management of acute encephalopathy in setting of UTI. At bedside today, patient continues to be sleepy only responsive to pain. Patient failed swallow evaluation today, continues to be n.p.o. Continues to be on IV antibiotics for UTI. Awaiting culture result. Patient takes divalproex acid at home, we will obtain ammonia level, B12 and folate level. Valproic acid level has been pending. If patient continues to have altered mentation, we will obtain neurology consult. Even though this this note was carefully revised there may still be minor errors in consumer loan manager due to voice recognition software. Arash Mak MD
--- NOTE | 2025-08-22 14:49 | PC.PT ---
PT approached patient at 1134 to find patient is currently unarousable in a comatose state. PT used verbal and tactile cues but was unable to get any response from patient. Patient was unresponsive to all stimuli at this time. Will re-attempt PT eval when patient is more awake and able to participate. RN made aware.
--- NOTE | 2025-08-22 14:58 | PCS.ST ---
Obtunded and unable to participate in Swallowing evaluation, [address] will follow up in AM
--- NOTE | 2025-08-22 15:53 | PC.SS ---
PIPE CUTTER attempted phone contact with patient's sister, Sia Toro ; no response. PIPE CUTTER left message requesting return call.
--- NOTE | 2025-08-22 15:57 | PC.SS ---
Rounding Note: Patient receiving IV antibiotics. Speech evaluation is pending.
[2025-08-22] MEDS: HEPARIN SOD INJ 5000 UNIT/ML VIAL SC (20:21)
[2025-08-22] MEDS: RINGERS LACTATED 1000 ML 1,000 ML 85 ML IV (22:15)
[2025-08-23] VITALS (8 sets, daily range): BP systolic 127–148; BP diastolic 70–94; PULSE 70–111; RESP 16–98; TEMP 36–36.9; O2SAT 98–100; BMI 30.8
[2025-08-23 05:42] LABS: Basophils # (Auto) 0.0 Thou/mm3 (0.0-0.2); Basophils % (Auto) 1 % (0-2.5); Eosinophils # (Auto) 0.2 Thou/mm3 (0.0-0.5); Eosinophils % (Auto) 3 % (0-10); Hematocrit 32.8 % (36.0-46.0); Hemoglobin 10.8 g/dL (12.0-16.0); Immature Granulocytes Auto 0.04 Thou/mm3 (0.00-0.00); Lymphocytes # (Auto) 1.8 Thou/mm3 (1.0-4.8); Lymphocytes % (Auto) 27 % (10-50); Mean Corpuscular HGB Conc 32.9 g/dl (31.0-37.0); Mean Corpuscular Hemoglobin 29.9 pg (25.0-35.0); Mean Corpuscular Volume 91 fL (80-100); Monocytes # (Auto) 0.6 Thou/mm3 (0.0-0.8); Monocytes % (Auto) 9 % (0-12); Neutrophils # (Auto) 4.2 Thou/mm3 (1.8-7.7); Neutrophils % (Auto) 60 % (37-80); Nucleated Red Blood Cell # 0.00 Thou/mm3 (0.00-0.00); Nucleated Red Blood Cell % 0 /100 WBC (0); Platelet Count 279 Thou/mm3 (140-440); RDW Standard Deviation 45.1 fL (36.4-46.3); Red Blood Count 3.61 Miln/mm3 (4.00-5.20); White Blood Count 6.9 Thou/mm3 (3.6-11.0)
[2025-08-23 07:21] LABS: Alanine Aminotransferase 10 U/L (10-49); Albumin, Serum 3.5 gm/dL (3.4-4.8); Alkaline Phosphatase 79 U/L (46-116); Anion Gap 11 (7-16); Aspartate Amino Transferase < 8 U/L (0-34); BUN/Creatinine Ratio 10 Ratio (12-20); Bilirubin,Total 0.6 mg/dL (0.3-1.2); Blood Urea Nitrogen 8 mg/dL (9-23); Calcium 9.0 mg/dL (8.3-10.6); Calcium (Corrected) 9.4 mg/dL (8.5-10.1); Carbon Dioxide 23.5 mMol/L (20.0-31.0); Chloride 105 mMol/L (98-107); Creatinine (Component) 0.8 mg/dL (0.6-1.3); Estimated Creatinine Clearance 54.9 mL/min (>60); Glucose 99 mg/dL (74-106); Magnesium 1.7 mg/dL (1.6-2.6); Osmolality,Calculated 275 (275-295); Phosphorous 4.3 mg/dL (2.4-5.1); Potassium 4.0 mMol/L (3.4-5.1); Sodium 139 mMol/L (136-145); eGFR > 60 See Note
--- NOTE | 2025-08-23 08:27 | PC.PT ---
Patient is still obtunded. Will cancel PT evaluation. Pls refer back to PT when patient is more alert and able to participate to PT.
[2025-08-23] MEDS: cefTRIAXone/D5w 1gm IV premix 1 GM/50 ML BAG IV (08:52)
[2025-08-23] MEDS: HEPARIN SOD INJ 5000 UNIT/ML VIAL SC (08:56)
[2025-08-23] MEDS: RINGERS LACTATED 1000 ML 1,000 ML 85 ML IV ×2 (09:07→22:47)
[2025-08-23] MEDS: Magnesium Sulfate 4 GM Ivpb 4 GM/50 ML BAG IV (09:11)
[2025-08-23] MEDS: PIPER/TAZO 3.375 GM PREMIX 3.375 GM/50 ML BAG IV ×3 (10:26→22:46)
--- NOTE | 2025-08-23 10:40 | ESPR_ITS ---
<Statement entered by Brock Wallis MD - 08/23/25 16:10> No acute overnight events. Seen and examined at bedside and patient continues to have decreased level of consciousness but does respond to pain. Later on in the day she was opening her eyes spontaneously but was not following commands. Touched base with her sister who stated that her functional status has sharply declined within the last month. If mentation continues to be clearly under her baseline, may consult neurology. Antibiotics changed according to culture results from ceftriaxone to zosyn and will continue to monitor for signs of improvement. ----- Note reviewed and agree with care plan as documented. Please refer to the note below for further details. Plan discussed with attending physician Dr. Zoey Wallis MD PGY-2 Internal Medicine Documentation for date of: 08/23/25 Subjective Subjective Interval history: No acute event overnights. Patient was seen and examined at beside. Vitals were withing normal limit. Labs were reviewed and signifcant for downtrending hemoglobin 10.8, hematocrit 32.8. Otherwise unremarkable. Magnesium was 1.7, repleted with 4 mg magnesium sulfate IV. Upon examination, the patient appears more awake today with her eyes wide open and tracking my movements around the room. However, she still does not respond to communication or follow commands. Speech therapy was consulted at the bedside but was unable to assess her swallowing ability, as she does not follow commands or demonstrate the ability to chew and swallow on command. Hence started patient [facility] subcu for anticoagulation. I called the patient's sister, Krystyna, to confirm the patient's baseline condition. She stated that the patient?s mental status has declined since being at [facility] over the past few weeks. The patient is unable to perform activities of daily living (ADLs) but is still able to eat independently. However, since Friday, the patient's mental condition has deteriorated significantly, and she stopped eating and became increasingly disoriented, which raised concerns for her sister. As a result, she decided to bring the patient to the hospital. Krystyna also mentioned that the patient had fallen while she was in [place] and subsequently did imging for it. Since then, the patient has been afraid to walk and has been primarily confined to a chair or bed. Physical therapy was attempted, but Krystyna believes there was no follow-up care for the patient after that. Urine culture, positive for Klebsiella pneumonia. Discontinue ceftriaxone 1g and started Zosyn 3.37 mgq8h. Exam Vital Signs Temp Pulse Resp BP Pulse Ox O2 Del Method 97.8 F 80 18 128/94 H 99 Room Air 08/23/25 08:00 08/23/25 08:00 08/23/25 08:00 08/23/25 08:00 08/23/25 08:00 08/23/25 08:00 Narrative Exam General: awake but not alert nor follow command, Skin: Warm, dry, intact. No rash or ecchymoses. Head: Normocephalic, atraumatic. Eye: Normal conjunctiva, PERRL. Throat: Oral mucosa moist. No obvious lesions in oropharynx. Cardiovascular: Regular rate and rhythm, no murmur, +S1/S2. Respiratory: Lungs are clear to auscultation, respirations unlabored, no crackles, no wheezing. Gastrointestinal: Soft, nontender, non-distended. No guarding or rebound tenderness. Extremities: No edema, no cyanosis, no clubbing. Neuro: Unable to assess fully Objective Labs 08/24/25 05:49 08/24/25 05:49 Labs: Laboratory Results - last 24 hr 08/22/25 08/22/25 08/23/25 04:20 10:50 05:16 WBC 6.9 RBC 3.61 L Hgb 10.8 L Hct 32.8 L MCV 91 MCH 29.9 MCHC 32.9 RDW Std Deviation 45.1 Plt Count 279 Neut % (Auto) 60 Lymph % (Auto) 27 Stewart % (Auto) 9 Eos % (Auto) 3 Baso % (Auto) 1 Neut # (Auto) 4.2 Lymph # (Auto) 1.8 Stewart # (Auto) 0.6 Eos # (Auto) 0.2 Baso # (Auto) 0.0 Immature Gran # (Auto) 0.04 H Absolute Nucleated RBC 0.00 Immature Gran % 1 H Nucleated RBC % 0 Sodium 139 Potassium 4.0 Chloride 105 Carbon Dioxide 23.5 Anion Gap 11 BUN 8 L Creatinine 0.8 Estim Creat Clear Calc 54.9 L eGFR > 60 BUN/Creatinine Ratio 10 L Glucose 99 Calculated Osmolality 275 Calcium 9.0 Corrected Calcium 9.4 Phosphorus 4.3 Magnesium 1.7 Total Bilirubin 0.6 AST < 8 ALT 10 Alkaline Phosphatase 79 Ammonia 21 Albumin 3.5 Vitamin B12 834 Folate > 24.00 ABG Interpretation ABG results: 08/22/25 00:19 VBG pH 7.50 VBG pCO2 33 L VBG pO2 110 H VBG Base Excess 3 Quality Measures Quality Measures VTE prophylaxis Advance care planning discussed with:: other Assessment & Plan Assessment Current Active Medications: Generic Name Dose Route Start Last Admin Trade Name Freq PRN Reason Stop Dose Admin Acetaminophen 650 mg 08/21/25 22:59 Acetaminophen 325 Mg Tablet PO 09/20/25 22:58 Q6HR PRN PAIN (1-3) OR FEVER > 100.4 Dextrose 25 ml 08/21/25 23:51 Dextrose 50%-Water Inj 50 Ml Syringe IV 09/20/25 23:50 Q15MIN PRN BG 50-70 responsive npo pt Dextrose 50 ml 08/21/25 23:51 Dextrose 50%-Water Inj 50 Ml Syringe IV 09/20/25 23:50 Q15MIN PRN BG <50 OR BG <70 & pt unresponsive Glucagon 1 mg 08/21/25 23:51 Glucagon Inj 1 Mg Vial IM Q15MIN PRN BG <70, and no IV access Heparin Sodium (Porcine) 5,000 unit 08/22/25 21:00 08/23/25 08:56 Heparin Sod Inj 5000 Unit/Ml Vial SC 09/05/25 20:59 5,000 unit BID JACKELINE Administration Lactated Ringer's 1,000 mls @ 85 mls/hr 08/22/25 22:04 08/23/25 09:07 Lactated Ringers IV 09/21/25 22:03 85 mls/hr .[id number] JACKELINE Administration Magnesium Sulfate 4 gm in 50 mls @ 12.5 mls/hr 08/23/25 07:47 08/23/25 09:11 Magnesium Sulfate Ivpb IV 08/23/25 11:46 12.5 mls/hr X1 ONE Administration Piperacillin/Tazobactam/Dextrose 3.375 gm in 50 mls @ 12.5 mls/hr 08/23/25 14:00 Zosyn IV 08/30/25 13:59 Q8HR [facility] Protocol Insulin Human Lispro 0 unit 08/21/25 23:45 08/23/25 05:26 Insulin Lispro (Admelog) 1 Unit/0.01 Ml Unit SC 09/20/25 23:44 Not Given Q6H [facility] Protocol Labetalol HCl 10 mg 08/22/25 09:15 Labetalol Inj 5 Mg/Ml Vial 4 Ml IVP 09/20/25 23:04 Q4H PRN SBP >170 Metoprolol Tartrate 25 mg 08/22/25 09:00 08/23/25 09:06 Metoprolol Tartrate 25 Mg Tablet PO 09/21/25 08:59 Not Given BID JACKELINE Ondansetron HCl 4 mg 08/21/25 22:59 Ondansetron Inj 2 Mg/Ml Inj 2 Ml IVP 09/20/25 22:58 Q6H PRN NAUSEA OR VOMITING Protocol Polyethylene Glycol 17 gm 08/22/25 09:00 08/23/25 09:06 Polyethylene Glycol 17 Gm Packet PO 09/21/25 08:59 Not Given QDAY [facility] Sennosides 1 tab 08/22/25 09:00 08/23/25 09:06 Senna Tablet PO 09/21/25 08:59 Not Given QDAY [facility] Protocol Plan 85-year-old female with a history of dementia (diagnosed in 2023), type 2 diabetes mellitus, paroxysmal atrial fibrillation (on Eliquis), bipolar I disorder, borderline personality disorder, and recurrent UTIs presents to the ED with altered mental status. Patient admitted for acute encephalopathy likely secondary to UTI, and A-fib with RVR. Acute encephalopathy 2/2 Klebsiella UTI History of recurrent UTIs History of dementia DDx: Infectious (CAP, UTI), metabolic (electrolyte derangement, uremia, hypo/hyperglycemia), hypoxic (respiratory failure, aspiration, MARCO ANTONIO), endocrine (thyroid, adrenal dysfunction), toxic/drug-induced, neurologic (CVA, seizures, brain mass), psychiatric (acute delirium, depression, psychosis) Patient came in and found to have 2 or more SIRS criteria and was evaluated for sepsis. However, based upon further work-up, sepsis was ruled out.Temperature on arrival 99.1WBC 8.5 with no left shift Head CT within normal limits. Chest x-ray clear. VBG showed pH 7.5, pCO2 33 - Patient takes Depakote for bipolar disorder, unsure at this time if taking too much Depakote recently - Ammonia, B12, folate all within normal limit. - Patient failed swallow screen, hence Eliquis and metoprolol is currently on hold. - Stopped ceftriaxone (08/21-08/23)- as urine culture grew klebsiella pneumonia Plan - started Zosyn 3.375 g (08/23- - Speech therapy referral- still unable to get access as pt will not participate - Valproic acid level, pending ? Correct electrolytes as necessary A-fib, with RVR Severe hypertension [id number]: 3 Rate: Uncontrolled Rhythm: Irregular Home medications: Eliquis 2.5 mg twice daily PO and metoprolol to tartrate 25 mg twice daily PO ? held Eliquis PO as failed swallow eval Plan ? resume metoprolol tartrate 25 mg po twice daily for rate control when tolerate PO ? Labetalol 10 mg IV every 4 hours as needed for systolic blood pressure greater than 170 - started Lovenox 84 mg SC BID Non-onsulin dependent Type 2 diabetes mellitus 08/22/25- A1c 6.4. Does not appear to be on any medications Plan ? Insulin sliding scale ? Hypoglycemia protocol in place. Bipolar 1 disorder Patient takes Depakote delayed release 125 mg twice daily Plan ? Resume once valproic acid levels come back Constipation Patient takes Fleet enema and milk of magnesia KUB showed; Moderate stool throughout the colon and nonobstructive bowel gas pattern Plan ? Bowel regimen ordered - Continue to monitor for bowel movements Moderate QTc prolongation EKG on arrival showed QTc 470 ms Patient at risk for life-threatening arrhythmias, particularly torsades de points Plan ? Keep potassium above 4 and magnesium above 2 ? Telemetry ? Avoid QTc prolonging drugs ? EKG in a.m. ordered Hospital management: Lines: peripheral IV Diet: Diet advance as tolerated Bowel: Senna and MIRALAX DVT prophylaxis: Lovenox Disposition: Telemetry for acute cephalopathy, A-fib RVR CODE STATUS: DNR Patient seen and assessed under supervision of attending physician Dr. Alonso and discuss with senior resident Dr. Arsenio Wallis PGY-2 Anay Leonard MD PGY-1, Internal Medicine Please note: this document was transcribed using voice recognition technology; minor inaccuracies may be present. Attending Provider Attestation/Addendum Boo, Kari Alonso, DO, attest that I was physically present for the hernández portions of the service and evaluated the patient with the resident and I reviewed and discussed the case with the resident and agree with the resident's findings and plans of care as documented above Patient seen and evaluated this AM. She is very somnolent and will respond to tactile stimuli. Per nurse at bedside, patient was alert and tracking with eyes., but patient will only withdraw to tactile stimuli at time of evaluation. Patient has been somnolent for a few days, suspect metabolic encephalopathy due to UTI. Patient noted to have ESBL klebsiella, will switch to IV zosyn as patient has been on rocephin. Will contact family regarding patient's baseline mental status. Per nursing, patient is very hard of hearing.
[2025-08-23 13:19] LABS: Albumin/Globulin Ratio 1.2 (1.2-2.2); Globulin 3.0 gm/dL (2.3-3.5); Total Protein 6.5 gm/dL (5.7-8.2)
--- NOTE | 2025-08-23 14:35 | PC.SS ---
Rounding Note: Patient receiving IV antibiotics. Patient failed swallow evaluation. Patient remains encephaloptic.
[2025-08-23] MEDS: ENOXAPARIN SOD INJ 100 MG/ML SYRINGE 84 MG SC (21:40)
[2025-08-24] VITALS (9 sets, daily range): BP systolic 121–148; BP diastolic 64–95; PULSE 86–134; RESP 14–98; TEMP 36–36.9; O2SAT 96–99
--- NOTE | 2025-08-24 01:48 | EKG_ITS ---
[facility] Test Date: 2025-08-24 Pat Name: LU MADERA Department: Room: S262A Gender: Female Ratoprinter: DIONTE : 1940 Requested By: Kenn Muniz Order Number: [id number] Reading MD: Kenn Muniz Measurements Intervals [place] Rate: 126 P: DC: QRS: -56 QRSD: 113 T: 20 QT: 330 QTc: 479 Interpretive Statements ATRIAL FIBRILLATION WITH RAPID VENTRICULAR RESPONSE LOW QRS VOLTAGE IN PRECORDIAL LEADS INCOMPLETE RIGHT BUNDLE BRANCH BLOCK LEFT ANTERIOR FASCICULAR BLOCK POSSIBLE ANTERIOR MYOCARDIAL INFARCTION , OF INDETERMINATE AGE Compared to ECG 08/22/2025 09:38:07 Low QRS voltage now present Incomplete right bundle-branch block now present Myocardial infarct finding now present Right bundle-branch block no longer present /store/S0/[id number]/ecg/[id number].pdf
[2025-08-24] MEDS: PIPER/TAZO 3.375 GM PREMIX 3.375 GM/50 ML BAG IV ×3 (05:36→21:35)
[2025-08-24 06:35] LABS: Basophils # (Auto) 0.1 Thou/mm3 (0.0-0.2); Basophils % (Auto) 1 % (0-2.5); Eosinophils # (Auto) 0.3 Thou/mm3 (0.0-0.5); Eosinophils % (Auto) 3 % (0-10); Hematocrit 35.2 % (36.0-46.0); Hemoglobin 12.0 g/dL (12.0-16.0); Immature Granulocytes Auto 0.04 Thou/mm3 (0.00-0.00); Lymphocytes # (Auto) 2.3 Thou/mm3 (1.0-4.8); Lymphocytes % (Auto) 29 % (10-50); Mean Corpuscular HGB Conc 34.1 g/dl (31.0-37.0); Mean Corpuscular Hemoglobin 30.5 pg (25.0-35.0); Mean Corpuscular Volume 90 fL (80-100); Monocytes # (Auto) 0.8 Thou/mm3 (0.0-0.8); Monocytes % (Auto) 11 % (0-12); Neutrophils # (Auto) 4.4 Thou/mm3 (1.8-7.7); Neutrophils % (Auto) 56 % (37-80); Nucleated Red Blood Cell # 0.00 Thou/mm3 (0.00-0.00); Nucleated Red Blood Cell % 0 /100 WBC (0); Platelet Count 290 Thou/mm3 (140-440); RDW Standard Deviation 45.0 fL (36.4-46.3); Red Blood Count 3.93 Miln/mm3 (4.00-5.20); White Blood Count 7.8 Thou/mm3 (3.6-11.0)
[2025-08-24 06:59] LABS: Alanine Aminotransferase 9 U/L (10-49); Albumin, Serum 3.8 gm/dL (3.4-4.8); Albumin/Globulin Ratio 1.2 (1.2-2.2); Alkaline Phosphatase 88 U/L (46-116); Anion Gap 11 (7-16); Aspartate Amino Transferase 15 U/L (0-34); BUN/Creatinine Ratio 9 Ratio (12-20); Bilirubin,Total 0.6 mg/dL (0.3-1.2); Blood Urea Nitrogen 8 mg/dL (9-23); Calcium 8.9 mg/dL (8.3-10.6); Calcium (Corrected) 9.1 mg/dL (8.5-10.1); Carbon Dioxide 23.8 mMol/L (20.0-31.0); Chloride 103 mMol/L (98-107); Creatinine (Component) 0.9 mg/dL (0.6-1.3); Estimated Creatinine Clearance 48.8 mL/min (>60); Globulin 3.2 gm/dL (2.3-3.5); Glucose 97 mg/dL (74-106); Magnesium 2.0 mg/dL (1.6-2.6); Osmolality,Calculated 273 (275-295); Phosphorous 4.3 mg/dL (2.4-5.1); Potassium 4.0 mMol/L (3.4-5.1); Sodium 138 mMol/L (136-145); Total Protein 7.0 gm/dL (5.7-8.2); eGFR > 60 See Note
[2025-08-24] MEDS: RINGERS LACTATED 1000 ML 1,000 ML 85 ML IV ×2 (09:26→21:35)
[2025-08-24] MEDS: ENOXAPARIN SOD INJ 100 MG/ML SYRINGE 84 MG SC ×2 (09:26→21:35)
--- NOTE | 2025-08-24 09:47 | ECHO_ITS ---
Patient Info Name: Khadra Clemons Age: 85 years : 1940 Gender: Female Ht: 163 cm Wt: 185 kg BSA: 3.02 m2 BP: 148 / 83 mmHg HR: 98 bpm Heart Rhythm: Atrial Fibrillation Exam Date: 08/24/2025 10:04 AM Admit Date: 08/21/2025 Site: [facility] Patient Status: I Technical Quality: Poor Exam Type: CA echo doppler limited Reason for Poor Study: poor patient cooperation [place] Machine Operator: Deborah Hensley Ordering Physician: Anay Leonard Study Info Indications afib w/RVR - Primary Location: S2NX Left Ventricular Outflow Tract Name Value Normal LVOT 2D LVOT Diameter 1.9 cm LVOT Doppler LVOT Peak Velocity 83 cm/s LVOT Mean Gradient 2 mmHg LVOT VTI 16 cm LVOT VTI/AV VTI Ratio 1.2 LVOT Stroke Volume 44 ml Mitral Valve Name Value Normal MV Doppler MV Decel [place] 557 cm/s2 MV PHT 44 ms MV Area (PHT) 2.0 cm2 4.0-5.0 MV Diastolic Function MV E Peak Velocity 84 cm/s MV A Peak Velocity 39 cm/s MV E/A 2.1 Tricuspid Valve Name Value Normal TV Regurgitation Doppler TR Peak Velocity 223 cm/s Estimated PAP/RSVP RA Pressure 15 mmHg <=5 PA Systolic Pressure 35 mmHg <36 RV Systolic Pressure 35 mmHg <36 Aortic Valve Name Value Normal AV 2D/MM AV Cusp Sep (MM) 1.2 cm AV Doppler AV Peak Velocity 94 cm/s AV Mean Gradient 2 mmHg AV VTI 14 cm AV Area (Cont Eq VTI) 3.3 cm2 >=3.0 AV Area (Cont Eq Manuel) 2.5 cm2 AV DI (Manuel) 0.88 AV Regurgitation 2D LVOT Area 2.8 cm2 Ventricles Name Value Normal LV Dimensions 2D/MM IVS Diastolic Thickness (2D) 0.8 cm 0.6-0.9 LVID Diastole (2D) 3.8 cm 3.8-5.2 LVIW Diastolic Thickness (2D) 1.2 cm 0.6-0.9 LVID Systole (2D) 2.7 cm 2.2-3.5 LVOT Diameter 1.9 cm LV Mass (2D Cubed) 117.28 g 67.00-162.00 LV Mass Index (2D Cubed) 39 g/m2 43-95 Relative Wall Thickness (2D) 0.63 <=0.42 IVS/LVIW Diastolic Thickness (2D) 0.67 0.00-1.50 LV Fractional Shortening/Ejection Fraction 2D/MM LV Fractional Shortening (2D) 29 % 27-45 LV EF (2D Teichholz) 57 % Atria Name Value Normal LA Dimensions LA Volume (4C A-L) 56 ml Left Ventricle Left ventricular chamber dimension is normal. Left ventricular systolic function is normal with visually estimated ejection fraction of 55-60%. There is concentric remodeling noted in the left ventricle. Left ventricular segmental wall motion is normal. There is indeterminate diastolic function in the left ventricle. Right Ventricle Right ventricular chamber dimension is normal. Right ventricular systolic function is normal. Left Atrium Left atrial chamber dimension is normal. Right Atrium Right atrial chamber dimension is normal. Aortic Valve The aortic valve is trileaflet. There is mild aortic valve sclerosis. There is no aortic valve stenosis with a peak velocity of 94 cm/s, mean gradient of 2 mmHg, and aortic valve area of 3.3 cm2. There is no aortic valve regurgitation. Pulmonic Valve The pulmonic valve is normal. There is no pulmonic valve stenosis. There is no pulmonic regurgitation. Mitral Valve The mitral valve has normal leaflets. There is no mitral valve stenosis. There is mild mitral valve regurgitation. Tricuspid Valve The tricuspid valve leaflets are normal. There is no tricuspid valve stenosis. There is mild tricuspid valve regurgitation. No pulmonary hypertension, estimated pulmonary arterial systolic pressure is 35 mmHg and systemic blood pressure of 148 mmHg in systole. Pericardium/Pleural The pericardium appears normal. There is no pericardial effusion. No pleural effusion visualized. Inferior Vena Cava Not well visualized inferior vena cava with >50% collapse upon inspiration consistent with normal right atrial pressure, 15 mmHg. Aorta The aortic measurements are indexed to age and body surface area. The aortic root at the sinus of Valsalva is not well visualized. The prox ascending aorta is not well visualized. Summary 1. Limited exam due to patient pushing probe off. 2. Left ventricle size is normal and systolic function is normal. Estimated ejection fraction is 55-60%. There is indeterminate diastolic function. 3. The right ventricle is not well visualized. 4. There is mild aortic valve sclerosis with no stenosis and no regurgitation. 5. There is mild mitral valve regurgitation. 6. There is mild tricuspid valve regurgitation. 7. Not well visualized IVC with estimated RA pressure 15 mmHg. Report Signatures Finalized by Rudy Summers on 08/25/2025 08:43 AM
--- NOTE | 2025-08-24 10:05 | ESPR_ITS ---
<Statement entered by Brock Wallis MD - 08/24/25 13:29> No acute overnight events. However, heart rate elevated up to 130s and required metoprolol tartrate 2.5 mg IV push x 2. Will order echo in anticipation for need for diltiazem drip for rate control. If echo is not read by end of day will place PRN orders for rate control. Otherwise, her mentation appears to be slightly improving on a day-to-day basis but still is only alert and not interactive. Given slow recovery, will place neurology consult for further evaluation. Will continue with IV antibiotics for her UTI and continue to monitor. ----- Note reviewed and agree with care plan as documented. Please refer to the note below for further details. Plan discussed with attending physician Dr. Zoey Wallis MD PGY-2 Internal Medicine Documentation for date of: 08/24/25 Subjective Subjective Interval history: Overnight patient was tachycardiac ranging between with HR110 to 120s. EKG was done and showed A-fib with RVR with a rate of 126 and a QTc of 479. Today patient was seen and examined at bedside. Patient is more awake, eyes open spontaneously but still does not follow commands. This morning Blood pressure 148/83 and pulse of 101. Labs were unremarkable. Consulted neurology regarding the patient's significant decline in function and mentation from her baseline of being alert and oriented to person and place, as reported by her sister during a phone call yesterday. Exam Vital Signs Temp Pulse Resp BP Pulse Ox O2 Del Method 96.8 F 101 H 20 148/83 H 96 Room Air 08/24/25 08:00 08/24/25 08:00 08/24/25 08:00 08/24/25 08:00 08/24/25 08:00 08/24/25 08:00 Narrative Exam General: awake, opening eyes spontaneously but following command Skin: Warm, dry, intact. No rash or ecchymoses. Head: Normocephalic, atraumatic. Eye: Normal conjunctiva, PERRL. Throat: Oral mucosa moist. No obvious lesions in oropharynx. Cardiovascular: Regular rate and rhythm, no murmur, +S1/S2. Respiratory: Lungs are clear to auscultation, respirations unlabored, no crackles, no wheezing. Gastrointestinal: Soft, nontender, non-distended. No guarding or rebound tenderness. Extremities: No edema, no cyanosis, no clubbing. Neuro: Alert and oriented x3.No focal deficits observed. Conversant, moving all extremities. No overt cerebellar signs/incoordination. Psychiatric: Cooperative, appropriate affect Objective Labs 08/25/25 05:19 08/25/25 05:19 Labs: Laboratory Results - last 24 hr 08/23/25 08/24/25 05:16 05:49 WBC 7.8 RBC 3.93 L Hgb 12.0 Hct 35.2 L MCV 90 MCH 30.5 MCHC 34.1 RDW Std Deviation 45.0 Plt Count 290 Neut % (Auto) 56 Lymph % (Auto) 29 [place] % (Auto) 11 Eos % (Auto) 3 Baso % (Auto) 1 Neut # (Auto) 4.4 Lymph # (Auto) 2.3 [place] # (Auto) 0.8 Eos # (Auto) 0.3 Baso # (Auto) 0.1 Immature Gran # (Auto) 0.04 H Absolute Nucleated RBC 0.00 Immature Gran % 1 H Nucleated RBC % 0 Sodium 138 Potassium 4.0 Chloride 103 Carbon Dioxide 23.8 Anion Gap 11 BUN 8 L Creatinine 0.9 Estim Creat Clear Calc 48.8 L eGFR > 60 BUN/Creatinine Ratio 9 L Glucose 97 Calculated Osmolality 273 L Calcium 8.9 Corrected Calcium 9.1 Phosphorus 4.3 Magnesium 2.0 Total Bilirubin 0.6 AST 15 ALT 9 L Alkaline Phosphatase 88 Total Protein 6.5 7.0 Albumin 3.8 Globulin 3.0 3.2 Albumin/Globulin Ratio 1.2 1.2 ABG Interpretation ABG results: 08/22/25 00:19 VBG pH 7.50 VBG pCO2 33 L VBG pO2 110 H VBG Base Excess 3 Quality Measures Quality Measures VTE prophylaxis Advance care planning discussed with:: other Assessment & Plan Assessment Current Active Medications: Generic Name Dose Route Start Last Admin Trade Name Freq PRN Reason Stop Dose Admin Acetaminophen 650 mg 08/21/25 22:59 Acetaminophen 325 Mg Tablet PO 09/20/25 22:58 Q6HR PRN PAIN (1-3) OR FEVER > 100.4 Dextrose 25 ml 08/21/25 23:51 Dextrose 50%-Water Inj 50 Ml Syringe IV 09/20/25 23:50 Q15MIN PRN BG 50-70 responsive npo pt Dextrose 50 ml 08/21/25 23:51 Dextrose 50%-Water Inj 50 Ml Syringe IV 09/20/25 23:50 Q15MIN PRN BG <50 OR BG <70 & pt unresponsive Enoxaparin Sodium 84 mg 08/23/25 21:00 08/24/25 09:26 Enoxaparin Sod Inj 100 Mg/Ml Syringe 1 mg/kg (84 mg) 09/06/25 20:59 84 mg SC Administration BID JACKELINE Glucagon 1 mg 08/21/25 23:51 Glucagon Inj 1 Mg Vial IM Q15MIN PRN BG <70, and no IV access Lactated Ringer's 1,000 mls @ 85 mls/hr 08/22/25 22:04 08/24/25 09:26 Lactated Ringers IV 09/21/25 22:03 85 mls/hr .[id number] JACKELINE Administration Piperacillin/Tazobactam/Dextrose 3.375 gm in 50 mls @ 12.5 mls/hr 08/23/25 17:30 08/24/25 05:36 Zosyn IV 08/30/25 17:29 12.5 mls/hr Q8HR JACKELINE Administration Protocol Insulin Human Lispro 0 unit 08/21/25 23:45 08/24/25 05:56 Insulin Lispro (Admelog) 1 Unit/0.01 Ml Unit SC 09/20/25 23:44 Not Given Q6H [facility] Protocol Labetalol HCl 10 mg 08/22/25 09:15 Labetalol Inj 5 Mg/Ml Vial 4 Ml IVP 09/20/25 23:04 Q4H PRN SBP >170 Ondansetron HCl 4 mg 08/21/25 22:59 Ondansetron Inj 2 Mg/Ml Inj 2 Ml IVP 09/20/25 22:58 Q6H PRN NAUSEA OR VOMITING Protocol Polyethylene Glycol 17 gm 08/22/25 09:00 08/24/25 09:27 Polyethylene Glycol 17 Gm Packet PO 09/21/25 08:59 Not Given QDAY [facility] Sennosides 1 tab 08/22/25 09:00 08/24/25 09:27 Senna Tablet PO 09/21/25 08:59 Not Given QDAY [facility] Protocol Plan 85-year-old female with a history of dementia (diagnosed in 2023), type 2 diabetes mellitus, paroxysmal atrial fibrillation (on Eliquis), bipolar I disorder, borderline personality disorder, and recurrent UTIs presents to the ED with altered mental status. Patient admitted for acute encephalopathy likely secondary to UTI, and A-fib with RVR. Acute encephalopathy 2/2 Klebsiella UTI History of recurrent UTIs History of dementia DDx: Infectious (CAP, UTI), metabolic (electrolyte derangement, uremia, hypo/hyperglycemia), hypoxic (respiratory failure, aspiration, MARCO ANTONIO), endocrine (thyroid, adrenal dysfunction), toxic/drug-induced, neurologic (CVA, seizures, brain mass), psychiatric (acute delirium, depression, psychosis) Patient came in and found to have 2 or more SIRS criteria and was evaluated for sepsis. However, based upon further work-up, sepsis was ruled out.Temperature on arrival 99.1WBC 8.5 with no left shift Head CT within normal limits. Chest x-ray clear. VBG showed pH 7.5, pCO2 33 - Patient takes Depakote for bipolar disorder, unsure at this time if taking too much Depakote recently - Ammonia, B12, folate all within normal limit. - Patient failed swallow screen, hence Eliquis and metoprolol is currently on hold. - Stopped ceftriaxone (08/21-08/23)- as urine culture grew klebsiella pneumonia Plan - Continue Zosyn 3.375 g (08/23- - Neurology consulted- recommendations appreciated - Speech therapy referral- still unable to get access as pt will not participate - Renewed IVF LR at 85ml.hr - Valproic acid level, pending ? Correct electrolytes as necessary A-fib, with RVR Primary hypertension [id number]: 3 Rate: Uncontrolled Rhythm: Irregular Home medications: Eliquis 2.5 mg twice daily PO and metoprolol to tartrate 25 mg twice daily PO ? held Eliquis PO as failed swallow eval Plan ? resume metoprolol tartrate 25 mg po twice daily for rate control when tolerate PO ? Labetalol 10 mg IV every 4 hours as needed for systolic blood pressure greater than 170 - continue Lovenox 84 mg SC BID - Echocardiogram ordered- Diltiazem drip will be considered if clinically appropriate for rate control Non-onsulin dependent Type 2 diabetes mellitus 08/22/25- A1c 6.4. Does not appear to be on any medications Plan ? Insulin sliding scale ? Hypoglycemia protocol in place. Bipolar 1 disorder Patient takes Depakote delayed release 125 mg twice daily Plan ? Resume once valproic acid levels come back Constipation Patient takes Fleet enema and milk of magnesia KUB showed; Moderate stool throughout the colon and nonobstructive bowel gas pattern Plan ? Bowel regimen ordered - Continue to monitor for bowel movements Moderate QTc prolongation EKG on arrival showed QTc 470 ms Patient at risk for life-threatening arrhythmias, particularly torsades de points Plan ? Keep potassium above 4 and magnesium above 2 ? Telemetry ? Avoid QTc prolonging drugs ? EKG in a.m. ordered Hospital management: Lines: peripheral IV Diet: NPO Bowel: Senna and MIRALAX DVT prophylaxis: Lovenox Disposition: Telemetry for acute cephalopathy, A-fib RVR CODE STATUS: DNR Patient seen and assessed under supervision of attending physician Dr. Greer and discuss with senior resident Dr. Arsenio Wallis PGY-2 Anay Leonard MD PGY-1, Internal Medicine Please note: this document was transcribed using voice recognition technology; minor inaccuracies may be present. Attending Provider Attestation/Addendum I, Kari Greer, DO, attest that I was physically present for the hernández portions of the service and evaluated the patient with the resident and I reviewed and discussed the case with the resident and agree with the resident's findings and plans of care as documented above Patient seen and evaluated this AM. Patient remains somnolent, but withdraws to to tactile stimuli. No family at bedside. Patient was reportedly more alert this morning. Suspect mental status to be 2/2 to psych d/o versus encephalopathy. Will consult neurology. Continue IV abx for esbl klebsiella UTI.
--- NOTE | 2025-08-24 15:30 | PC.SS ---
BRAKE REPAIR MECHANIC conducted phone contact with the patient?s sister, Sia Noel ; to conduct initial assessment and to discuss discharge planning on behalf of the patient.? Patient is a resident of [facility].? Patient has been at the [facility] for approximately 2 weeks, per patient?s sister.? Patient utilizes a wheelchair to assist with mobility.? Patient does not require the use of home oxygen.? Patient requires assistance with the completion of ADL?s.? Patient?s medical surrogate decision maker is sister, Sia Noel.? Plan is for the patient to return to [facility] at the time of discharge.? network services project manager to assist with arranging transportation on behalf of the patient. No discharge needs identified by the patient. ?No further intervention required at this time, social insurance adviser will be available to address any further concerns.? Next of Kin: Sia Noel D/C Plan: [facility]
--- NOTE | 2025-08-24 15:51 | ESCONSULT_ITS ---
HPI Data of Consult Requesting Physician: Kari Greer DO Admitting Provider: Lilian Jefferson MD Attending Provider: Kari Greer DO Primary Care Provider: Nadya Rebollar MD Consult Narrative Reason for consult: Altered mental status History of present illness: History obtained from chart review as patient unable to give history. Patient is an 85-year-old female with a history of dementia (diagnosed in 2023), type 2 diabetes mellitus, paroxysmal atrial fibrillation (on Eliquis), chronic kidney disease, bipolar I disorder, borderline personality disorder, and recurrent urinary tract infections presented to the ED from [facility] on 08/21/2025 with altered mental status. Per her sister, Becky, who is the medical point of contact, the patient had been markedly more lethargic and nonresponsive since that morning, exhibiting snoring, a glazed look, and excessive sleepiness. Patient also seemed to have a marked functional decline in the last 1 month. Patient is very hard of hearing. Patient is normally AAOx2, with some baseline confusion, but that day had not been communicating or responding as usual. Patient was evaluated in ED and found to have a UTI, therefore was admitted and started on antibiotics. Patient is on day 4 of admission and neurology was consulted due to lack of improvement in mental status. cc:: cc: Kari Greer DO Past Medical History Past Medical History Comments PMH COMMENT: Past medical history: As stated above. Allergies: NKDA Family history: Noncontributory. Social history: No alcohol use, no smoking, no illicit drug use. Exam Vital Signs Temp Pulse Resp BP Pulse Ox O2 Del Method 97.8 F 87 19 142/95 H 99 Room Air 08/24/25 12:00 08/24/25 12:08/24/25 12:08/24/25 12:08/24/25 12:08/24/25 12:00 Narrative Exam Physical Exam General: Asleep, not interactive however opens eyes after repeated stimuli. HEENT: Normocephalic, atraumatic, mucous membranes dry. Heart: Regular rate and rhythm, normal S1 and S2, no murmurs. Lungs: Clear to auscultation with no wheezing or crackles. Abdomen: Soft, nondistended, nontender, positive bowel sounds. ?No guarding or rebound tenderness. Neurologic: Alert and oriented x0, does not follow commands. Extremities: No edema. Skin: No rash or ecchymoses. Results Labs 08/26/25 04:15 08/26/25 04:15 Labs: Short CBC 08/24/25 Range/Units 05:49 WBC 7.8 (3.6-11.0) Thou/mm3 Hgb 12.0 (12.0-16.0) g/dL Hct 35.2 L (36.0-46.0) % Plt Count 290 (140-440) Thou/mm3 BMP 08/24/25 05:49 Sodium 138 Potassium 4.0 Chloride 103 Carbon Dioxide 23.8 BUN 8 L Creatinine 0.9 Glucose 97 Calcium 8.9 Liver Function 08/24/25 Range/Units 05:49 Total Bilirubin 0.6 (0.3-1.2) mg/dL AST 15 (0-34) U/L ALT 9 L (10-49) U/L Alkaline Phosphatase 88 (46-116) U/L Albumin 3.8 (3.4-4.8) gm/dL ABG Interpretation ABG results: 08/22/25 00:19 VBG pH 7.50 VBG pCO2 33 L VBG pO2 110 H VBG Base Excess 3 Quality Measures Quality Measures VTE prophylaxis Advance care planning discussed with:: patient Medications Home Medications and Allergies Home Medications ?Medication ?Instructions ?Recorded ?Confirmed ?Type apixaban 2.5 mg tablet (Eliquis) 2.5 mg PO BID 5 08/22/25 History divalproex 125 mg tablet,delayed 125 mg PO Q12H 08/22/25 History release (Depakote) megestrol 400 mg/10 mL (10 mL) 400 mg PO BID 08/22/25 08/22/25 History oral suspension metoprolol tartrate 25 mg tablet 25 mg PO BID 08/22/25 08/22/25 History multivitamin (Daily Multi-Vitamin 1 tab PO QAM 5 08/22/25 History tablet) Allergies Allergy/AdvReac Type Severity Reaction Status Date / Time No Known Allergies Allergy Verified 08/21/25 18:01 Visit Medications Acetaminophen (Acetaminophen 325 Mg Tablet) 650 mg PO Q6HR PRN PRN Reason: PAIN (1-3) OR FEVER > 100.4 Stop: 09/20/25 22:58 Dextrose (Dextrose 50%-Water Inj 50 Ml Syringe) 25 ml IV Q15MIN PRN PRN Reason: BG 50-70 responsive npo pt Stop: 09/20/25 23:50 Dextrose (Dextrose 50%-Water Inj 50 Ml Syringe) 50 ml IV Q15MIN PRN PRN Reason: BG <50 OR BG <70 & pt unresponsive Stop: 09/20/25 23:50 Enoxaparin Sodium (Enoxaparin Sod Inj 100 Mg/Ml Syringe) 84 mg 1 mg/kg (84 mg) SC BID [facility] Stop: 09/06/25 20:59 Last Admin: 08/24/25 09:26 Dose: 84 mg Glucagon (Glucagon Inj 1 Mg Vial) 1 mg IM Q15MIN PRN PRN Reason: BG <70, and no IV access Lactated Ringer's (Lactated Ringers) 1,000 mls @ 85 mls/hr IV .[id number] [facility] Stop: 09/21/25 22:03 Last Admin: 08/24/25 09:26 Dose: 85 mls/hr Piperacillin/Tazobactam/Dextrose (Zosyn) 3.375 gm in 50 mls @ 12.5 mls/hr IV Q8HR [facility]; Protocol Stop: 08/30/25 17:29 Last Admin: 08/24/25 14:02 Dose: 12.5 mls/hr Insulin Human Lispro (Insulin Lispro (Admelog) 1 Unit/0.01 Ml Unit) 0 unit SC Q6H [facility]; Protocol Stop: 09/20/25 23:44 Last Admin: 08/24/25 12:00 Dose: Not Given Labetalol HCl (Labetalol Inj 5 Mg/Ml Vial 4 Ml) 10 mg IVP Q4H PRN PRN Reason: SBP >170 Stop: 09/20/25 23:04 Ondansetron HCl (Ondansetron Inj 2 Mg/Ml Inj 2 Ml) 4 mg IVP Q6H PRN; Protocol PRN Reason: NAUSEA OR VOMITING Stop: 09/20/25 22:58 Polyethylene Glycol (Polyethylene Glycol 17 Gm Packet) 17 gm PO QDAY [facility] Stop: 09/21/25 08:59 Last Admin: 08/24/25 09:27 Dose: Not Given Sennosides (Senna Tablet) 1 tab PO QDAY [facility]; Protocol Stop: 09/21/25 08:59 Last Admin: 08/24/25 09:27 Dose: Not Given Discontinued Medications Apixaban (Apixaban 2.5 Mg Tablet) 2.5 mg PO BID [facility] Stop: 09/21/25 08:59 Last Admin: 08/22/25 09:05 Dose: Not Given Enoxaparin Sodium (Enoxaparin Sod Inj 40 Mg/0.4 Ml Syringe) 40 mg SC QDAY [facility] Stop: 09/05/25 08:59 Heparin Sodium (Porcine) (Heparin Sod Inj 5000 Unit/Ml Vial) 5,000 unit SC Q12HR [facility] Stop: 09/04/25 23:29 Last Admin: 08/21/25 23:35 Dose: 5,000 unit Heparin Sodium (Porcine) (Heparin Sod Inj 5000 Unit/Ml Vial) 5,000 unit SC BID [facility] Stop: 09/05/25 20:59 Last Admin: 08/23/25 08:56 Dose: 5,000 unit Ceftriaxone Sodium/Dextrose (Rocephin/D5w 1gm Iv Premix) 1 gm in 50 mls @ 100 mls/hr IV QDAY [facility] Stop: 08/28/25 23:07 Last Admin: 08/23/25 08:52 Dose: 100 mls/hr Lactated Ringer's (Lactated Ringers) 1,000 mls @ 999 mls/hr IV .Q1H1M ONE Stop: 08/22/25 02:07 Last Infusion: 08/22/25 02:24 Dose: Infused Lactated Ringer's (Lactated Ringers) 1,000 mls @ 75 mls/hr IV .[id number] [facility] Stop: 08/22/25 15:34 Last Admin: 08/22/25 02:23 Dose: 75 mls/hr Magnesium Sulfate (Magnesium Sulfate Ivpb) 2 gm in 50 mls @ 25 mls/hr IV X1 ONE Stop: 08/22/25 09:22 Last Admin: 08/22/25 09:04 Dose: 25 mls/hr Magnesium Sulfate (Magnesium Sulfate Ivpb) 4 gm in 50 mls @ 12.5 mls/hr IV X1 ONE Stop: 08/23/25 11:46 Last Admin: 08/23/25 09:11 Dose: 12.5 mls/hr Piperacillin/Tazobactam/Dextrose (Zosyn) 3.375 gm in 50 mls @ 12.5 mls/hr IV Q8HR JACKELINE; Protocol Stop: 08/30/25 13:59 Piperacillin/Tazobactam/Dextrose (Zosyn) 3.375 gm in 50 mls @ 100 mls/hr IV X1 ONE; Protocol Stop: 08/23/25 10:29 Last Admin: 08/23/25 10:26 Dose: 100 mls/hr Labetalol HCl (Labetalol Inj 5 Mg/Ml Vial 4 Ml) 10 mg IVP Q4H PRN PRN Reason: SBP >170 Stop: 09/20/25 23:04 Labetalol HCl (Labetalol Inj 5 Mg/Ml Vial 4 Ml) 10 mg IVP Q4H PRN PRN Reason: SBP >170 or HR >100 Stop: 09/20/25 23:04 Metoprolol Tartrate (Metoprolol Tartrate 25 Mg Tablet) 25 mg PO BID [facility] Stop: 09/20/25 23:14 Last Admin: 08/22/25 00:56 Dose: Not Given Metoprolol Tartrate (Metoprolol Tartrate 25 Mg Tablet) 25 mg PO BID JACKELINE Stop: 09/21/25 08:59 Last Admin: 08/23/25 09:06 Dose: Not Given Metoprolol Tartrate (Metoprolol Tartrate Inj 1 Mg/Ml Vial 5 Ml) 2.5 mg IVP X1 ONE Stop: 08/24/25 03:16 Last Admin: 08/24/25 02:29 Dose: 2.5 mg Metoprolol Tartrate (Metoprolol Tartrate Inj 1 Mg/Ml Vial 5 Ml) 2.5 mg IVP X1 ONE Stop: 08/24/25 06:31 Last Admin: 08/24/25 06:41 Dose: 2.5 mg Assessment & Plan Plan 85-year-old female with a history of dementia (diagnosed in 2023), type 2 diabetes mellitus, paroxysmal atrial fibrillation (on Eliquis), bipolar I disorder, borderline personality disorder, and recurrent UTIs presents to the ED with altered mental status. Patient admitted for acute encephalopathy likely secondary to UTI, and neurology was consulted due to lack of improvement in mental status despite treatment. #Acute encephalopathy #Klebsiella UTI #History of recurrent UTIs #History of dementia DDx: Infectious (CAP, UTI), metabolic (electrolyte derangement, uremia, hypo/hyperglycemia), hypoxic (respiratory failure, aspiration, MARCO ANTONIO), endocrine (thyroid, adrenal dysfunction), toxic/drug-induced, neurologic (CVA, seizures, brain mass), psychiatric (acute delirium, depression, psychosis) Patient came in and found to have 2 or more SIRS criteria and was evaluated for sepsis. However, based upon further work-up, sepsis was ruled out.Temperature on arrival 99.1WBC 8.5 with no left shift Head CT within normal limits. Chest x-ray clear. VBG showed pH 7.5, pCO2 33 - Patient takes Depakote for bipolar disorder, unsure at this time if taking too much Depakote recently - Ammonia, B12, folate all within normal limit. - Patient failed swallow screen, hence Eliquis and metoprolol is currently on hold. - Stopped ceftriaxone (08/21-08/23)- as urine culture grew klebsiella pneumonia Plan: - Continue adequate antibiotic treatment for UTI - Will order MRI with and without contrast to evaluate for structural causes and cortical atrophy - Will order EEG to look for diffuse slowing possibly associated with dementia- related causes - Valproic acid level pending Rest of conditions to continue current management per primary team: #A-fib, with RVR #Primary hypertension #Non-insulin dependent type 2 diabetes mellitus #Bipolar 1 disorder #Constipation #Moderate QTc prolongation Patient was discussed with the Neurology attending, Dr. Fortune. Thank you for allowing us to participate in the care of this patient. Ella Guthrie, PGY-3 Attending Provider Attestation/Addendum I personally have seen and examined the patient at the bedside and I agreed with the resident's findings, assessment and and plan of care. As the patient continued to have altered mental status completely different from baseline even though she has baseline dementia, despite being treated for urinary tract infection, will follow-up with MRI brain and EEG to evaluate further. we will consider doing lumbar puncture if necessary to evaluate for encephalitis after the inital workup is negative.
[2025-08-25] VITALS (10 sets, daily range): BP systolic 104–175; BP diastolic 70–105; PULSE 69–160; RESP 14–19; TEMP 36.1–36.9; O2SAT 96–99; BMI 30.4
[2025-08-25] MEDS: PIPER/TAZO 3.375 GM PREMIX 3.375 GM/50 ML BAG IV ×3 (05:44→20:15)
[2025-08-25 06:22] LABS: Basophils # (Auto) 0.0 Thou/mm3 (0.0-0.2); Basophils % (Auto) 1 % (0-2.5); Eosinophils # (Auto) 0.4 Thou/mm3 (0.0-0.5); Eosinophils % (Auto) 5 % (0-10); Hematocrit 34.0 % (36.0-46.0); Hemoglobin 11.1 g/dL (12.0-16.0); Immature Granulocytes Auto 0.03 Thou/mm3 (0.00-0.00); Lymphocytes # (Auto) 2.1 Thou/mm3 (1.0-4.8); Lymphocytes % (Auto) 28 % (10-50); Mean Corpuscular HGB Conc 32.6 g/dl (31.0-37.0); Mean Corpuscular Hemoglobin 29.6 pg (25.0-35.0); Mean Corpuscular Volume 91 fL (80-100); Monocytes # (Auto) 0.7 Thou/mm3 (0.0-0.8); Monocytes % (Auto) 9 % (0-12); Neutrophils # (Auto) 4.3 Thou/mm3 (1.8-7.7); Neutrophils % (Auto) 57 % (37-80); Nucleated Red Blood Cell # 0.00 Thou/mm3 (0.00-0.00); Nucleated Red Blood Cell % 0 /100 WBC (0); Platelet Count 272 Thou/mm3 (140-440); RDW Standard Deviation 45.1 fL (36.4-46.3); Red Blood Count 3.75 Miln/mm3 (4.00-5.20); White Blood Count 7.5 Thou/mm3 (3.6-11.0)
[2025-08-25 06:53] LABS: Alanine Aminotransferase 8 U/L (10-49); Albumin, Serum 3.6 gm/dL (3.4-4.8); Albumin/Globulin Ratio 1.2 (1.2-2.2); Alkaline Phosphatase 81 U/L (46-116); Anion Gap 13 (7-16); Aspartate Amino Transferase 12 U/L (0-34); BUN/Creatinine Ratio 8 Ratio (12-20); Bilirubin,Total 0.6 mg/dL (0.3-1.2); Blood Urea Nitrogen 6 mg/dL (9-23); Calcium 9.0 mg/dL (8.3-10.6); Calcium (Corrected) 9.3 mg/dL (8.5-10.1); Carbon Dioxide 23.4 mMol/L (20.0-31.0); Chloride 104 mMol/L (98-107); Creatinine (Component) 0.8 mg/dL (0.6-1.3); Estimated Creatinine Clearance 54.6 mL/min (>60); Globulin 3.0 gm/dL (2.3-3.5); Glucose 88 mg/dL (74-106); Magnesium 1.7 mg/dL (1.6-2.6); Osmolality,Calculated 276 (275-295); Phosphorous 3.9 mg/dL (2.4-5.1); Potassium 4.3 mMol/L (3.4-5.1); Sodium 140 mMol/L (136-145); Total Protein 6.6 gm/dL (5.7-8.2); eGFR > 60 See Note
--- NOTE | 2025-08-25 09:24 | ESPR_ITS ---
<Statement entered by Brock Wallis MD - 08/25/25 18:24> No acute overnight events. Seen and examined at bedside and mental status is improved compared to prior as she opens her eyes spontaneously and appears to track as she did not prior. However, she is still not verbalizing and still unable to take PO medications. Thus, NG tube was placed and will restart her home medications including metoprolol tartrate and Eliquis. After placement of NG tube heart rate increased to the 160s and was given metoprolol tartrate 2.5 mg IV x 2 and rate improved into the 130s. After NG tube placement was confirmed, was given her home dose of metoprolol tartrate 25 mg. Still no leukocytosis but culture grew ESBL Klebsiella for which she is on zosyn for. Neurology has been consulted and ordered EEG and MRI for further evaluation. Will follow-up on results and recommendations. ----- Note reviewed and agree with care plan as documented. Please refer to the note below for further details. Plan discussed with attending physician Dr. Zoey Wallis MD PGY-2 Internal Medicine Documentation for date of: 08/25/25 Subjective Subjective Interval history: No acute events overnight, pt had soft movement. Today, the patient was seen and examined at the bedside. The patient had a blanket covering her face, and when I attempted to remove it, she used her arm to resist. However, the patient appeared more alert and awake today. Vitals remainded stable, afebrile patient is saturating is well in room. Labs were reviewed and unremarkable. Pt has 1 soft BM this morning. Neurology saw the pt and recommends MRI w/ and w/o to evaluate structural causes and EEG look for diffuse slowing and associated with dementia. Per speech therapy evaluation, the patient continues to have behavioral issues with swallowing and showed no oral response during food trials with applesauce and water. No improvement observed. Continued recommendation for alternative nutrition sources. Plan to initiate NG tube feedings. A referral to the dietitian has been made, and follow-up will occur based on their recommendations. Exam Vital Signs Temp Pulse Resp BP Pulse Ox O2 Del Method 97.0 F 84 19 139/105 H 99 Room Air 08/25/25 08:00 08/25/25 08:00 08/25/25 08:00 08/25/25 08:00 08/25/25 08:00 08/25/25 08:00 Narrative Exam Physical Exam General: AWAKE, more interactive, still does not follow commands. HEENT: Normocephalic, atraumatic, mucous membranes dry. Heart: Regular rate and rhythm, normal S1 and S2, no murmurs. Lungs: Clear to auscultation with no wheezing or crackles. Abdomen: Soft, nondistended, nontender, positive bowel sounds. ?No guarding or rebound tenderness. Neurologic: Alert and oriented x0, does not follow commands. Extremities: No edema. Skin: No rash or ecchymoses. Objective Labs 08/26/25 04:15 08/26/25 04:15 Labs: Laboratory Results - last 24 hr 08/25/25 05:19 WBC 7.5 RBC 3.75 L Hgb 11.1 L Hct 34.0 L MCV 91 MCH 29.6 MCHC 32.6 RDW Std Deviation 45.1 Plt Count 272 Neut % (Auto) 57 Lymph % (Auto) 28 [place] % (Auto) 9 Eos % (Auto) 5 Baso % (Auto) 1 Neut # (Auto) 4.3 Lymph # (Auto) 2.1 [place] # (Auto) 0.7 Eos # (Auto) 0.4 Baso # (Auto) 0.0 Immature Gran # (Auto) 0.03 H Absolute Nucleated RBC 0.00 Immature Gran % 0 Nucleated RBC % 0 Sodium 140 Potassium 4.3 Chloride 104 Carbon Dioxide 23.4 Anion Gap 13 BUN 6 L Creatinine 0.8 Estim Creat Clear Calc 54.6 L eGFR > 60 BUN/Creatinine Ratio 8 L Glucose 88 Calculated Osmolality 276 Calcium 9.0 Corrected Calcium 9.3 Phosphorus 3.9 Magnesium 1.7 Total Bilirubin 0.6 AST 12 ALT 8 L Alkaline Phosphatase 81 Total Protein 6.6 Albumin 3.6 Globulin 3.0 Albumin/Globulin Ratio 1.2 ABG Interpretation ABG results: 08/22/25 00:19 VBG pH 7.50 VBG pCO2 33 L VBG pO2 110 H VBG Base Excess 3 Quality Measures Quality Measures VTE prophylaxis Advance care planning discussed with:: other Assessment & Plan Assessment Current Active Medications: Generic Name Dose Route Start Last Admin Trade Name Freq PRN Reason Stop Dose Admin Acetaminophen 650 mg 08/21/25 22:59 Acetaminophen 325 Mg Tablet PO 09/20/25 22:58 Q6HR PRN PAIN (1-3) OR FEVER > 100.4 Dextrose 25 ml 08/21/25 23:51 Dextrose 50%-Water Inj 50 Ml Syringe IV 09/20/25 23:50 Q15MIN PRN BG 50-70 responsive npo pt Dextrose 50 ml 08/21/25 23:51 Dextrose 50%-Water Inj 50 Ml Syringe IV 09/20/25 23:50 Q15MIN PRN BG <50 OR BG <70 & pt unresponsive Enoxaparin Sodium 84 mg 08/23/25 21:00 08/24/25 21:35 Enoxaparin Sod Inj 100 Mg/Ml Syringe 1 mg/kg (84 mg) 09/06/25 20:59 84 mg SC Administration BID JACKELINE Glucagon 1 mg 08/21/25 23:51 Glucagon Inj 1 Mg Vial IM Q15MIN PRN BG <70, and no IV access Lactated Ringer's 1,000 mls @ 85 mls/hr 08/22/25 22:04 08/24/25 21:35 Lactated Ringers IV 09/21/25 22:03 85 mls/hr .[id number] JACKELINE Administration Piperacillin/Tazobactam/Dextrose 3.375 gm in 50 mls @ 12.5 mls/hr 08/23/25 17:30 08/25/25 05:44 Zosyn IV 08/30/25 17:29 12.5 mls/hr Q8HR JACKELINE Administration Protocol Insulin Human Lispro 0 unit 08/21/25 23:45 08/25/25 05:44 Insulin Lispro (Admelog) 1 Unit/0.01 Ml Unit SC 09/20/25 23:44 Not Given Q6H [facility] Protocol Labetalol HCl 10 mg 08/22/25 09:15 Labetalol Inj 5 Mg/Ml Vial 4 Ml IVP 09/20/25 23:04 Q4H PRN SBP >170 Ondansetron HCl 4 mg 08/21/25 22:59 Ondansetron Inj 2 Mg/Ml Inj 2 Ml IVP 09/20/25 22:58 Q6H PRN NAUSEA OR VOMITING Protocol Polyethylene Glycol 17 gm 08/22/25 09:00 08/25/25 09:00 Polyethylene Glycol 17 Gm Packet PO 09/21/25 08:59 Not Given QDAY JACKELINE Sennosides 1 tab 08/22/25 09:00 12/04/25 09:00 Senna Tablet PO 09/21/25 08:59 Not Given QDAY [facility] Protocol Plan 85-year-old female with a history of dementia (diagnosed in 2023), type 2 diabetes mellitus, paroxysmal atrial fibrillation (on Eliquis), bipolar I disorder, borderline personality disorder, and recurrent UTIs presents to the ED with altered mental status. Patient admitted for acute encephalopathy likely secondary to UTI, and A-fib with RVR. Acute encephalopathy 2/2 ESBL Klebsiella UTI History of recurrent UTIs History of dementia DDx: Infectious (CAP, UTI), metabolic (electrolyte derangement, uremia, hypo/hyperglycemia), hypoxic (respiratory failure, aspiration, MARCO ANTONIO), endocrine (thyroid, adrenal dysfunction), toxic/drug-induced, neurologic (CVA, seizures, brain mass), psychiatric (acute delirium, depression, psychosis) Patient came in and found to have 2 or more SIRS criteria and was evaluated for sepsis. However, based upon further work-up, sepsis was ruled out.Temperature on arrival 99.1WBC 8.5 with no left shift Head CT within normal limits. Chest x-ray clear. VBG showed pH 7.5, pCO2 33 - Patient takes Depakote for bipolar disorder, unsure at this time if taking too much Depakote recently - Ammonia, B12, folate all within normal limit. - Patient failed swallow screen, hence Eliquis and metoprolol is currently on hold. - Stopped ceftriaxone (08/21-08/23)- urine culture grew ESBL klebsiella pneumonia Plan - Continue Zosyn 3.375 g (08/23- - Neurology consulted- MRI and EEG ordered - Speech therapy referral- recommends alternative nutrition routes - NGT placed for tube feeding - Forging Machine Operator referral- Glucerna 1.2 at 20 ml/hr via NG tube by pump. Advance 10 ml every 8 hrs to goal rate of 55 ml/hr x 24 hrs. If no IV fluids, water flushes of 25 ml/hr - Valproic acid level, pending ? Correct electrolytes as necessary A-fib, with RVR Primary hypertension [id number]: 3 Rate: Uncontrolled Rhythm: Irregular Home medications: Eliquis 2.5 mg twice daily PO and metoprolol to tartrate 25 mg twice daily PO -STOPPED Lovenox 84 mg SC BID on 08/25 Plan ? resume metoprolol tartrate 25 mg BID via NG rate control and metoprolol 2.5mg IVP PRN for tachycardia - resume home eliquis 2.5mg NG BID ? Labetalol 10 mg IV every 4 hours as needed for systolic blood pressure greater than 170 - Echocardiogram ordered-, PENDING READ, Diltiazem drip will be considered if clinically appropriate for rate control Non-onsulin dependent Type 2 diabetes mellitus 08/22/25- A1c 6.4. Does not appear to be on any medications Plan ? Insulin sliding scale ? Hypoglycemia protocol in place. Bipolar 1 disorder Patient takes Depakote delayed release 125 mg twice daily Plan ? Resume once valproic acid levels come back Constipation Patient takes Fleet enema and milk of magnesia KUB showed; Moderate stool throughout the colon and nonobstructive bowel gas pattern Plan ? Bowel regimen ordered - Continue to monitor for bowel movements Moderate QTc prolongation EKG on arrival showed QTc 470 ms Patient at risk for life-threatening arrhythmias, particularly torsades de points Plan ? Keep potassium above 4 and magnesium above 2 ? Telemetry ? Avoid QTc prolonging drugs Hospital management: Lines: peripheral IV Diet: Glucerna 1.2 at 20 ml/hr Bowel: Senna and MIRALAX DVT prophylaxis: Lovenox Disposition: Telemetry for acute cephalopathy, A-fib RVR CODE STATUS: DNR Patient seen and assessed under supervision of attending physician Dr. Greer and discuss with senior resident Dr. Arsenio Wallis PGY-2 Anay Leonard MD PGY-1, Internal Medicine Please note: this document was transcribed using voice recognition technology; minor inaccuracies may be present. Attending Provider Attestation/Addendum I, Kari Greer, DO, attest that I was physically present for the hernández portions of the service and evaluated the patient with the resident and I reviewed and discussed the case with the resident and agree with the resident's findings and plans of care as documented above Patient seen and evaluated this AM. She appears more alert and is able to open eyes today and tracks. She does not follow commands, however. She will swat away any noxious stimuli. Patient was not able to work with speech therapy due to the same behaviours. MRI and EEG are pending, ordered by neurology. Patient has not been eating for [address] NG tube for enteral nutrition.
[2025-08-25] MEDS: ENOXAPARIN SOD INJ 100 MG/ML SYRINGE 84 MG SC (09:57)
--- NOTE | 2025-08-25 10:06 | PC.NURSE ---
Attempted to contact pt's sister who is the POC and the one that answered the MRI screening yesterday. We need surgical background for the pt before she can go to the MRI. Becky (pt's sister) did not answer and I left a vm requesting that she calls me back hugo
--- NOTE | 2025-08-25 12:17 | PC.DIETICIAN ---
Nutrition prescription When indicated: Glucerna 1.2 at 20 ml/hr via NG tube by pump. Advance 10 ml every 8 hrs to goal rate of 55 ml/hr x 24 hrs. If no IV fluids, water flushes of 25 ml/hr (or per MD).
--- NOTE | 2025-08-25 15:05 | XR_ITS ---
EXAMINATION: AP chest single view TECHNIQUE: AP portable chest single view Date and time: August 25, 2025, 1519 hours INDICATIONS: Post orogastric tube placement. FINDINGS: Orogastric tube sidehole at the GE junction Normal heart size Atelectasis versus mild pneumonia left base IMPRESSION: Advance the orogastric tube 5 cm
--- NOTE | 2025-08-25 16:08 | XR_ITS ---
EXAMINATION: AP chest single view TECHNIQUE: Portable semiupright chest single view Date and time: August 25, 2025, 1644 hours, comparison August 25, 2025 INDICATIONS: Post orogastric tube placement. FINDINGS: Orogastric tube tip distal stomach satisfactory position Normal heart size Lungs are clear IMPRESSION: Orogastric tube tip distal stomach satisfactory position
--- NOTE | 2025-08-25 16:15 | PD.RESPRO ---
Documentation for date of: 08/25/25 Subjective Subjective Interval history: No acute events overnight.?Patient seen and examined at bedside, she appeared more awake today in the afternoon, was opening her eyes spontaneously and tracking. She still did not follow commands or say any words, however seemed to grunt when legs were manipulated on exam. Still pending the MRI as MRI screening needed to be completed by family member, and EEG is still pending. In the afternoon the patient went into afib with RvR requiring pushes of metoprolol and was eventually given her home metoprolol tartrate through NG tube since she is still not able to swallow. Exam Vital Signs Temp Pulse Resp BP Pulse Ox O2 Del Method 98.5 F 160 H 16 104/79 99 Room Air 08/25/25 12:00 08/25/25 15:10 08/25/25 12:00 08/25/25 15:10 08/25/25 12:00 08/25/25 12:00 Narrative Exam Physical Exam General: Awake, eyes are open and tracks but still nonverbal. HEENT: Normocephalic, atraumatic, mucous membranes dry. Heart: Regular rate and rhythm, normal S1 and S2, no murmurs. Lungs: Clear to auscultation with no wheezing or crackles. Abdomen: Soft, nondistended, nontender, positive bowel sounds. ?No guarding or rebound tenderness. Neurologic: Alert and oriented x0, does not follow commands. Increased tone of the left upper extremity and pill rolling tremor is noted. Left wrist restraint in place. Extremities: No edema. Skin: No rash or ecchymoses. Objective Labs 08/26/25 04:15 08/26/25 04:15 Labs: Laboratory Results - last 24 hr 08/25/25 05:19 WBC 7.5 RBC 3.75 L Hgb 11.1 L Hct 34.0 L MCV 91 MCH 29.6 MCHC 32.6 RDW Std Deviation 45.1 Plt Count 272 Neut % (Auto) 57 Lymph % (Auto) 28 [place] % (Auto) 9 Eos % (Auto) 5 Baso % (Auto) 1 Neut # (Auto) 4.3 Lymph # (Auto) 2.1 [place] # (Auto) 0.7 Eos # (Auto) 0.4 Baso # (Auto) 0.0 Immature Gran # (Auto) 0.03 H Absolute Nucleated RBC 0.00 Immature Gran % 0 Nucleated RBC % 0 Sodium 140 Potassium 4.3 Chloride 104 Carbon Dioxide 23.4 Anion Gap 13 BUN 6 L Creatinine 0.8 Estim Creat Clear Calc 54.6 L eGFR > 60 BUN/Creatinine Ratio 8 L Glucose 88 Calculated Osmolality 276 Calcium 9.0 Corrected Calcium 9.3 Phosphorus 3.9 Magnesium 1.7 Total Bilirubin 0.6 AST 12 ALT 8 L Alkaline Phosphatase 81 Total Protein 6.6 Albumin 3.6 Globulin 3.0 Albumin/Globulin Ratio 1.2 ABG Interpretation ABG results: 08/22/25 00:19 VBG pH 7.50 VBG pCO2 33 L VBG pO2 110 H VBG Base Excess 3 Quality Measures Quality Measures VTE prophylaxis Advance care planning discussed with:: patient Assessment & Plan Assessment Current Active Medications: Generic Name Dose Route Start Last Admin Trade Name Freq PRN Reason Stop Dose Admin Acetaminophen 650 mg 08/21/25 22:59 Acetaminophen 325 Mg Tablet PO 09/20/25 22:58 Q6HR PRN PAIN (1-3) OR FEVER > 100.4 Apixaban 2.5 mg 08/25/25 21:00 Apixaban 2.5 Mg Tablet NG 09/24/25 20:59 BID JACKELINE Dextrose 25 ml 08/21/25 23:51 Dextrose 50%-Water Inj 50 Ml Syringe IV 09/20/25 23:50 Q15MIN PRN BG 50-70 responsive npo pt Dextrose 50 ml 08/21/25 23:51 Dextrose 50%-Water Inj 50 Ml Syringe IV 09/20/25 23:50 Q15MIN PRN BG <50 OR BG <70 & pt unresponsive Glucagon 1 mg 08/21/25 23:51 Glucagon Inj 1 Mg Vial IM Q15MIN PRN BG <70, and no IV access Lactated Ringer's 1,000 mls @ 85 mls/hr 08/22/25 22:04 08/24/25 21:35 Lactated Ringers IV 09/21/25 22:03 85 mls/hr .[id number] JACKELINE Administration Piperacillin/Tazobactam/Dextrose 3.375 gm in 50 mls @ 12.5 mls/hr 08/23/25 17:30 08/25/25 15:15 Zosyn IV 08/30/25 17:29 12.5 mls/hr Q8HR JACKELINE Administration Protocol Insulin Human Lispro 0 unit 11/30/25 23:45 08/25/25 11:45 Insulin Lispro (Admelog) 1 Unit/0.01 Ml Unit SC 09/20/25 23:44 Not Given Q6H [facility] Protocol Labetalol HCl 10 mg 08/22/25 09:15 Labetalol Inj 5 Mg/Ml Vial 4 Ml IVP 09/20/25 23:04 Q4H PRN SBP >170 Metoprolol Tartrate 25 mg 08/25/25 21:00 Metoprolol Tartrate 25 Mg Tablet NG 09/24/25 20:59 BID JACKELINE Ondansetron HCl 4 mg 08/21/25 22:59 Ondansetron Inj 2 Mg/Ml Inj 2 Ml IVP 09/20/25 22:58 Q6H PRN NAUSEA OR VOMITING Protocol Polyethylene Glycol 17 gm 08/22/25 09:00 08/25/25 09:00 Polyethylene Glycol 17 Gm Packet PO 09/21/25 08:59 Not Given QDAY [facility] Sennosides 1 tab 08/22/25 09:00 08/25/25 09:00 Senna Tablet PO 09/21/25 08:59 Not Given QDAY [facility] Protocol Plan 85-year-old female with a history of dementia (diagnosed in 2023), type 2 diabetes mellitus, paroxysmal atrial fibrillation (on Eliquis), bipolar I disorder, borderline personality disorder, and recurrent UTIs presents to the ED with altered mental status. Patient admitted for acute encephalopathy likely secondary to UTI, and neurology was consulted due to lack of improvement in mental status despite treatment. #Acute encephalopathy #Klebsiella UTI #History of recurrent UTIs #History of dementia DDx: Infectious (CAP, UTI), metabolic (electrolyte derangement, uremia, hypo/hyperglycemia), hypoxic (respiratory failure, aspiration, MARCO ANTONIO), endocrine (thyroid, adrenal dysfunction), toxic/drug-induced, neurologic (CVA, seizures, brain mass), psychiatric (acute delirium, depression, psychosis) Patient came in and found to have 2 or more SIRS criteria and was evaluated for sepsis. However, based upon further work-up, sepsis was ruled out.Temperature on arrival 99.1WBC 8.5 with no left shift Head CT within normal limits. Chest x-ray clear. VBG showed pH 7.5, pCO2 33 - Patient takes Depakote for bipolar disorder, unsure at this time if taking too much Depakote recently - Ammonia, B12, folate all within normal limit. - Patient failed swallow screen, hence Eliquis and metoprolol is currently on hold. - Stopped ceftriaxone (08/21-08/23)- as urine culture grew klebsiella pneumonia - Valproic acid level 7.4 low Plan: - Continue adequate antibiotic treatment for UTI - Pending MRI with and without contrast to evaluate for structural causes and cortical atrophy - Pending EEG to look for diffuse slowing possibly associated with dementia-related causes Rest of conditions to continue current management per primary team: #A-fib, with RVR #Primary hypertension #Non-insulin dependent type 2 diabetes mellitus #Bipolar 1 disorder #Constipation #Moderate QTc prolongation Patient was discussed with the Neurology attending, Dr. Fortune. Thank you for allowing us to participate in the care of this patient. Ella Guthrie, PGY-3 Attending Provider Attestation/Addendum I personally have seen and examined the patient at the bedside and agreed with the resident's findings, assessment and plan of care. She seems to be more awake, still nonverbal, able to track. Noted resting tremors and spasticity in the left upper extremity, suggestive of parkinsonism. Follow-up with MRI once screening is completed and EEG to evaluate further.
[2025-08-25] MEDS: METOPROLOL TARTRATE 25 MG TABLET NG (17:45)
[2025-08-25] MEDS: RINGERS LACTATED 1000 ML 1,000 ML 85 ML IV (20:14)
[2025-08-25] MEDS: APIXABAN 2.5 MG TABLET NG (20:15)
[2025-08-26] VITALS: BP 153/89; PULSE 90; PULSE 91; RESP 18; TEMP 36.4; O2SAT 99
--- NOTE | 2025-08-26 | XR_ITS ---
Examination: MRI of brain without intravenous contrast. MRI brain with intravenous contrast. Date and time of exam: August 26, 2025, 1134 hours INDICATIONS: Altered mental status beginning August 21, 2025 Technique: Multiple axial and sagittal images of the brain to been obtained. Siemens high-resolution 1.52 Gwendolyn short bore scanner utilized. Sagittal sections, T1 weighted images, TR 500, TE 14, are performed. Axial sections proton-density and T2-weighted images have been obtained. Inversion recovery axial images, TR 9260, TE 111, TR 2500. Diffusion weighted images, axial sections, TR 4800, TE 128, B value 1000. Axial sections, ADC map, TR 4800, TE 128. Axial and coronal images were also obtained post 16 cc gadolinium administered intravenously. Findings:: Enlargement of the sella turcica is not present. The optic chiasm and infundibular stalk are not remarkable. There is no localized enlargement of the medulla or yimi. Fourth ventricle and cerebellar tonsils appear normal in position. No subacute area of hemorrhage density is seen. Fourth ventricle is midline. Mass in the cerebellopontine angle region is not evident. 7th and 8th nerve complexes exhibit symmetry Globes are symmetrical Orbital musculature including medial lateral rectus muscles do not exhibit abnormality Increased white matter signal is prominent Effacement of the cortical sulcal markings is not identified. Mass effect upon the ventricular system is not identified. 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
[2025-08-26 04:00] VITALS: BP 149/93; PULSE 89; PULSE 95; RESP 20; TEMP 36.1; O2SAT 97
[2025-08-26 05:13] LABS: Basophils # (Auto) 0.0 Thou/mm3 (0.0-0.2); Basophils % (Auto) 1 % (0-2.5); Eosinophils # (Auto) 0.3 Thou/mm3 (0.0-0.5); Eosinophils % (Auto) 4 % (0-10); Hematocrit 35.2 % (36.0-46.0); Hemoglobin 11.6 g/dL (12.0-16.0); Immature Granulocytes Auto 0.05 Thou/mm3 (0.00-0.00); Lymphocytes # (Auto) 2.1 Thou/mm3 (1.0-4.8); Lymphocytes % (Auto) 25 % (10-50); Mean Corpuscular HGB Conc 33.0 g/dl (31.0-37.0); Mean Corpuscular Hemoglobin 29.8 pg (25.0-35.0); Mean Corpuscular Volume 91 fL (80-100); Monocytes # (Auto) 0.9 Thou/mm3 (0.0-0.8); Monocytes % (Auto) 10 % (0-12); Neutrophils # (Auto) 5.0 Thou/mm3 (1.8-7.7); Neutrophils % (Auto) 60 % (37-80); Nucleated Red Blood Cell # 0.00 Thou/mm3 (0.00-0.00); Nucleated Red Blood Cell % 0 /100 WBC (0); Platelet Count 275 Thou/mm3 (140-440); RDW Standard Deviation 45.1 fL (36.4-46.3); Red Blood Count 3.89 Miln/mm3 (4.00-5.20); White Blood Count 8.4 Thou/mm3 (3.6-11.0)
[2025-08-26] MEDS: PIPER/TAZO 3.375 GM PREMIX 3.375 GM/50 ML BAG IV ×3 (05:14→21:14)
[2025-08-26 05:34] VITALS: BMI 31.1
--- NOTE | 2025-08-26 05:35 | PC.NURSE ---
Patient removed NG tube. Patient Became very combative and HR went Afib RVR 130's when attempting to replace NG. notified of 2 attempts at placement ok to leave NG out for now.
[2025-08-26 05:40] LABS: Anion Gap 11 (7-16); BUN/Creatinine Ratio 9 Ratio (12-20); Blood Urea Nitrogen 7 mg/dL (9-23); Calcium 8.9 mg/dL (8.3-10.6); Carbon Dioxide 25.1 mMol/L (20.0-31.0); Chloride 104 mMol/L (98-107); Creatinine (Component) 0.8 mg/dL (0.6-1.3); Estimated Creatinine Clearance 55.2 mL/min (>60); Glucose 91 mg/dL (74-106); Magnesium 1.6 mg/dL (1.6-2.6); Osmolality,Calculated 277 (275-295); Phosphorous 3.4 mg/dL (2.4-5.1); Potassium 4.1 mMol/L (3.4-5.1); Sodium 140 mMol/L (136-145); eGFR > 60 See Note
[2025-08-26 06:18] LABS: Valporic Acid (Depak)* 7.4 mg/L (50.0-100.0)
[2025-08-26] MEDS: RINGERS LACTATED 1000 ML 1,000 ML 85 ML IV (07:40)
[2025-08-26 08:00] VITALS: BP 133/88; PULSE 61; PULSE 72; RESP 15; TEMP 36.6; O2SAT 99
--- NOTE | 2025-08-26 10:35 | PC.NURSE ---
Called sister Becky and left voicemail again informing her that we can not move forward with tests with out asking her some questions. Asked her to call back [facility] to [phone]
--- NOTE | 2025-08-26 11:10 | PC.NURSE ---
Spoke with pt's sister Becky, no surgical hx to Becky's knowledge. I updated the MRI checklist and called MRI to let them know. They will take the pt to MRI soon
[2025-08-26 12:00] VITALS: BP 132/75; PULSE 67; RESP 16; TEMP 36.7; O2SAT 97
--- NOTE | 2025-08-26 13:59 | ESPR_ITS ---
Documentation for date of: 08/26/25 Subjective Subjective Interval history: Patient seen at bedside, more somnolent today and not awakening to voice or sternal rub, although she does wince and withdraws locally to pain. The MRI brain showed multiembolic infarcts in the left temporal, left frontal, left occipital, and left parietal lobes. Patient is moving and withdrawing all 4 extremities, although does seem to have less force on the right upper extremity. Exam Vital Signs Temp Pulse Resp BP Pulse Ox O2 Del Method 98.0 F 67 16 132/75 H 97 Room Air 08/26/25 12:00 08/26/25 12:00 08/26/25 12:00 08/26/25 12:00 08/26/25 12:00 08/26/25 12:00 Narrative Exam Physical Exam General: Somnolent, GCS 7, not opening eyes today to voice or stimulation HEENT: Normocephalic, atraumatic, mucous membranes dry. Heart: Regular rate and rhythm, normal S1 and S2, no murmurs. Lungs: Clear to auscultation with no wheezing or crackles. Abdomen: Soft, nondistended, nontender, positive bowel sounds. ?No guarding or rebound tenderness. Neurologic: Alert and oriented x0, does not follow commands. Increased tone of the left upper extremity and pill rolling tremor is noted. Left wrist restraint in place. Withdraws all 4 extremities however less force on the right upper extremity. Plantar flexion response normal bilaterally. Extremities: No edema. Skin: No rash or ecchymoses. Objective Labs 08/27/25 05:52 08/26/25 04:15 Labs: Laboratory Results - last 24 hr 08/21/25 08/26/25 19:17 04:15 WBC 8.4 RBC 3.89 L Hgb 11.6 L Hct 35.2 L MCV 91 MCH 29.8 MCHC 33.0 RDW Std Deviation 45.1 Plt Count 275 Neut % (Auto) 60 Lymph % (Auto) 25 [place] % (Auto) 10 Eos % (Auto) 4 Baso % (Auto) 1 Neut # (Auto) 5.0 Lymph # (Auto) 2.1 [place] # (Auto) 0.9 H Eos # (Auto) 0.3 Baso # (Auto) 0.0 Immature Gran # (Auto) 0.05 H Absolute Nucleated RBC 0.00 Immature Gran % 1 H Nucleated RBC % 0 Sodium 140 Potassium 4.1 Chloride 104 Carbon Dioxide 25.1 Anion Gap 11 BUN 7 L Creatinine 0.8 Estim Creat Clear Calc 55.2 L eGFR > 60 BUN/Creatinine Ratio 9 L Glucose 91 Calculated Osmolality 277 Calcium 8.9 Phosphorus 3.4 Magnesium 1.6 Valproic Acid 7.4 L ABG Interpretation ABG results: 08/22/25 00:19 VBG pH 7.50 VBG pCO2 33 L VBG pO2 110 H VBG Base Excess 3 Quality Measures Quality Measures VTE prophylaxis Advance care planning discussed with:: patient Assessment & Plan Assessment Current Active Medications: Generic Name Dose Route Start Last Admin Trade Name Freq PRN Reason Stop Dose Admin Acetaminophen 650 mg 08/21/25 22:59 Acetaminophen 325 Mg Tablet PO 09/20/25 22:58 Q6HR PRN PAIN (1-3) OR FEVER > 100.4 Apixaban 2.5 mg 08/25/25 21:00 08/26/25 10:04 Apixaban 2.5 Mg Tablet NG 09/24/25 20:59 Not Given BID JACKELINE Dextrose 25 ml 08/21/25 23:51 Dextrose 50%-Water Inj 50 Ml Syringe IV 09/20/25 23:50 Q15MIN PRN BG 50-70 responsive npo pt Dextrose 50 ml 08/21/25 23:51 Dextrose 50%-Water Inj 50 Ml Syringe IV 09/20/25 23:50 Q15MIN PRN BG <50 OR BG <70 & pt unresponsive Glucagon 1 mg 08/21/25 23:51 Glucagon Inj 1 Mg Vial IM Q15MIN PRN BG <70, and no IV access Lactated Ringer's 1,000 mls @ 85 mls/hr 08/22/25 22:04 08/26/25 07:40 Lactated Ringers IV 09/21/25 22:03 85 mls/hr .[id number] JACKELINE Administration Piperacillin/Tazobactam/Dextrose 3.375 gm in 50 mls @ 12.5 mls/hr 08/23/25 17:30 08/26/25 05:14 Zosyn IV 08/30/25 17:29 12.5 mls/hr Q8HR JACKELINE Administration Protocol Insulin Human Lispro 0 unit 08/21/25 23:45 08/26/25 04:59 Insulin Lispro (Admelog) 1 Unit/0.01 Ml Unit SC 09/20/25 23:44 Not Given Q6H [facility] Protocol Labetalol HCl 10 mg 08/22/25 09:15 Labetalol Inj 5 Mg/Ml Vial 4 Ml IVP 09/20/25 23:04 Q4H PRN SBP >170 Metoprolol Tartrate 2.5 mg 08/25/25 16:16 08/25/25 16:26 Metoprolol Tartrate Inj 1 Mg/Ml Vial 5 Ml IVP 09/24/25 16:15 2.5 mg Q5MIN PRN Administration TACHYCARDIA Metoprolol Tartrate 25 mg 08/25/25 17:25 08/26/25 10:04 Metoprolol Tartrate 25 Mg Tablet NG 09/24/25 17:24 Not Given BID JACKELINE Ondansetron HCl 4 mg 08/21/25 22:59 Ondansetron Inj 2 Mg/Ml Inj 2 Ml IVP 09/20/25 22:58 Q6H PRN NAUSEA OR VOMITING Protocol Polyethylene Glycol 17 gm 08/22/25 09:00 08/26/25 10:04 Polyethylene Glycol 17 Gm Packet PO 09/21/25 08:59 Not Given QDAY [facility] Sennosides 1 tab 08/22/25 09:00 08/26/25 10:05 Senna Tablet PO 09/21/25 08:59 Not Given QDAY [facility] Protocol Plan 85-year-old female with a history of dementia (diagnosed in 2023), type 2 diabetes mellitus, paroxysmal atrial fibrillation (on Eliquis), bipolar I disorder, borderline personality disorder, and recurrent UTIs presents to the ED with altered mental status. Patient admitted for acute encephalopathy likely secondary to UTI, and neurology was consulted due to lack of improvement in mental status despite treatment. #Acute encephalopathy, most likely secondary to #Acute ischemic multiembolic type left temporal, frontal, occipital and parietal stroke #History of dementia Patient who is typically A&O x2 at baseline who came from [facility] was brought in due to altered mental status, as patient was somnolent and difficult to rouse. Sister additionally reported that patient had a notable decline in function and mentation over the last 1 month. - Head CT within normal limits. - Patient takes Depakote for bipolar disorder, Valproic acid level 7.4 low - Ammonia, B12, folate all within normal limits. - MRI without contrast showed multiple embolic type acute infarcts left temporal, left frontal, left occipital, left parietal lobe - At this point the stroke is most likely cause for global aphasia and lack of interactability. This stroke may have occurred any time within the last week. Additionally, patient may not have been receiving her oral medications including Eliquis and metoprolol prior to hospitalization as well due to lack of ability to swallow. - PEG tube might be planned for the patient Plan: - Pending echo with bubble study - Pending EEG to look for diffuse slowing possibly associated with dementia- related causes #Klebsiella ESBL UTI #History of recurrent UTIs Patient came in and found to have 2 or more SIRS criteria and was evaluated for sepsis. However, based upon further work-up, sepsis was ruled out. Urine was turbid, with positive leukocyte esterase and 617 WBCs. Urine culture grew Klebsiella ESBL resistant to ceftriaxone which the patient was initiated on until 08/23 when it was switched to Zosyn. May have contributed to altered mentation at first while untreated. Plan: - Continue adequate antibiotic treatment for UTI Rest of conditions to continue current management per primary team: #A-fib, with RVR #Primary hypertension #Non-insulin dependent type 2 diabetes mellitus #Bipolar 1 disorder #Constipation #Moderate QTc prolongation Patient was discussed with the Neurology attending, Dr. Fortune. Thank you for allowing us to participate in the care of this patient. Ella Guthrie, PGY-3 Attending Provider Attestation/Addendum I personally have seen and examined the patient at the bedside and agree with the resident's findings, assessment and plan of care. MRI brain showed multiple embolic type infarcts in the left cerebral hemisphere secondary to atrial fibrillation. She is more somnolent and not responsive today. Noted that she is going for PEG tube placement for nutritional support as she has functional dysphagia from progressive cognitive impairment with baseline dementia and parkinsonism and new cerebral infarction. Patient has poor prognosis for meaningful neurological recovery.
--- NOTE | 2025-08-26 14:05 | ESPR_ITS ---
<Statement entered by Brock Wallis MD - 08/26/25 15:40> No acute overnight events. Seen and examined at bedside and patient mentation overall is similar compared to yesterday but eyes are not opening spontaneously and does respond to sternal rub. Noted to have gone into A-fib with RVR yesterday after insertion of NG tube, which patient has since removed, but is now resolved. She was able to obtain an MRI brain that showed multiple embolic infarcts for which repeat TTE with bubble study was ordered for further evaluation. Will also touch base with decision-maker regarding PEG tube placement to administer medications as well as for nutrition purposes. Will follow-up on neurology recommendations ----- Note reviewed and agree with care plan as documented. Please refer to the note below for further details. Plan discussed with attending physician Dr. Zoey Wallis MD PGY-2 Internal Medicine Documentation for date of: 08/26/25 Subjective Subjective Interval history: No acute events overnight. At approximately 4 AM, the patient pulled out her NG tube, and enteral feedings were suspended. Noted to have gone into Afib RVR after NGT insertion,which resolve after patient remove it. Valproic acid level returned at 7.4, which is low and should be considered in management. Per the neuro consult, the patient presents with resting tremors and spasticity in the left upper extremity, suggestive of Parkinsonism. MRI of the brain shows multiple embolic infarcts in the left lobes, which explain her worsening mental status and inability to follow commands or tolerate PO intake. Discussed with patient decision maker, Becky, and explained the possibility of a PEG tube for nutrition, she is agreeable to it. Sister also mention that in May at [facility] pt was diagnosed with a mass between the pancreas and stomach for which endoscope was suggested. But pt family refuse. Pt does not have a cold food packer. She mentions that the eliquis and metropolol might have been as prescribed by the patient PCP Dr.Victor Dela Cruz. Upon examination the patient is found in a catatonic state. Lungs are clear, and there are no signs of fluid overload. Orderer echo w/ bubble study to rule out for possible cardioembolic source . EEG and prior echo is still pending. Exam Vital Signs Temp Pulse Resp BP Pulse Ox O2 Del Method 98.0 F 67 16 132/75 H 97 Room Air 08/26/25 12:00 08/26/25 12:00 08/26/25 12:00 08/26/25 12:00 08/26/25 12:00 08/26/25 12:00 Narrative Exam General: Asleep, not interactive however opens eyes after repeated stimuli. HEENT: Normocephalic, atraumatic, mucous membranes dry. Heart: Regular rate and rhythm, normal S1 and S2, no murmurs. Lungs: Clear to auscultation with no wheezing or crackles. Abdomen: Soft, nondistended, nontender, positive bowel sounds. ?No guarding or rebound tenderness. Neurologic: Alert and oriented x0, does not follow commands. Extremities: No edema. Skin: No rash or ecchymoses. Objective Labs 08/27/25 05:52 08/27/25 05:52 Labs: Laboratory Results - last 24 hr 08/21/25 08/26/25 19:17 04:15 WBC 8.4 RBC 3.89 L Hgb 11.6 L Hct 35.2 L MCV 91 MCH 29.8 MCHC 33.0 RDW Std Deviation 45.1 Plt Count 275 Neut % (Auto) 60 Lymph % (Auto) 25 [place] % (Auto) 10 Eos % (Auto) 4 Baso % (Auto) 1 Neut # (Auto) 5.0 Lymph # (Auto) 2.1 [place] # (Auto) 0.9 H Eos # (Auto) 0.3 Baso # (Auto) 0.0 Immature Gran # (Auto) 0.05 H Absolute Nucleated RBC 0.00 Immature Gran % 1 H Nucleated RBC % 0 Sodium 140 Potassium 4.1 Chloride 104 Carbon Dioxide 25.1 Anion Gap 11 BUN 7 L Creatinine 0.8 Estim Creat Clear Calc 55.2 L eGFR > 60 BUN/Creatinine Ratio 9 L Glucose 91 Calculated Osmolality 277 Calcium 8.9 Phosphorus 3.4 Magnesium 1.6 Valproic Acid 7.4 L ABG Interpretation ABG results: 08/22/25 00:19 VBG pH 7.50 VBG pCO2 33 L VBG pO2 110 H VBG Base Excess 3 Quality Measures Quality Measures VTE prophylaxis Advance care planning discussed with:: other Assessment & Plan Assessment Current Active Medications: Generic Name Dose Route Start Last Admin Trade Name Freq PRN Reason Stop Dose Admin Acetaminophen 650 mg 08/21/25 22:59 Acetaminophen 325 Mg Tablet PO 09/20/25 22:58 Q6HR PRN PAIN (1-3) OR FEVER > 100.4 Apixaban 2.5 mg 08/25/25 21:00 08/26/25 10:04 Apixaban 2.5 Mg Tablet NG 09/24/25 20:59 Not Given BID JACKELINE Dextrose 25 ml 08/21/25 23:51 Dextrose 50%-Water Inj 50 Ml Syringe IV 09/20/25 23:50 Q15MIN PRN BG 50-70 responsive npo pt Dextrose 50 ml 08/21/25 23:51 Dextrose 50%-Water Inj 50 Ml Syringe IV 09/20/25 23:50 Q15MIN PRN BG <50 OR BG <70 & pt unresponsive Glucagon 1 mg 08/21/25 23:51 Glucagon Inj 1 Mg Vial IM Q15MIN PRN BG <70, and no IV access Lactated Ringer's 1,000 mls @ 85 mls/hr 08/22/25 22:04 08/26/25 07:40 Lactated Ringers IV 09/21/25 22:03 85 mls/hr .[id number] JACKELINE Administration Piperacillin/Tazobactam/Dextrose 3.375 gm in 50 mls @ 12.5 mls/hr 08/23/25 17:30 08/26/25 05:14 Zosyn IV 08/30/25 17:29 12.5 mls/hr Q8HR JACKELINE Administration Protocol Insulin Human Lispro 0 unit 08/21/25 23:45 08/26/25 04:59 Insulin Lispro (Admelog) 1 Unit/0.01 Ml Unit SC 09/20/25 23:44 Not Given Q6H [facility] Protocol Labetalol HCl 10 mg 08/22/25 09:15 Labetalol Inj 5 Mg/Ml Vial 4 Ml IVP 09/20/25 23:04 Q4H PRN SBP >170 Metoprolol Tartrate 2.5 mg 08/25/25 16:16 08/25/25 16:26 Metoprolol Tartrate Inj 1 Mg/Ml Vial 5 Ml IVP 09/24/25 16:15 2.5 mg Q5MIN PRN Administration TACHYCARDIA Metoprolol Tartrate 25 mg 08/25/25 17:25 08/26/25 10:04 Metoprolol Tartrate 25 Mg Tablet NG 09/24/25 17:24 Not Given BID JACKELINE Ondansetron HCl 4 mg 08/21/25 22:59 Ondansetron Inj 2 Mg/Ml Inj 2 Ml IVP 09/20/25 22:58 Q6H PRN NAUSEA OR VOMITING Protocol Polyethylene Glycol 17 gm 08/22/25 09:00 08/26/25 10:04 Polyethylene Glycol 17 Gm Packet PO 09/21/25 08:59 Not Given QDAY [facility] Sennosides 1 tab 08/22/25 09:00 08/26/25 10:05 Senna Tablet PO 09/21/25 08:59 Not Given QDAY [facility] Protocol Plan 85-year-old female with a history of dementia (diagnosed in 2023), type 2 diabetes mellitus, paroxysmal atrial fibrillation (on Eliquis), bipolar I disorder, borderline personality disorder, and recurrent UTIs presents to the ED with altered mental status. Patient admitted for acute encephalopathy likely secondary to UTI, and A-fib with RVR. 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 However, based upon further work-up, sepsis was ruled out.Temperature on arrival 99.1WBC 8.5 with no left shift Head CT within normal limits. Chest x-ray clear. VBG showed pH 7.5, pCO2 33 - Patient takes Depakote for bipolar disorder, unsure at this time if taking too much Depakote recently - Ammonia, B12, folate all within normal limit. - Patient failed swallow screen, hence Eliquis and metoprolol is currently on hold. - Stopped ceftriaxone (08/21-08/23)- urine culture grew ESBL klebsiella pneumonia -Cycle Counter referral- Glucerna 1.2 at 20 ml/hr via NG tube by pump. Advance 10 ml every 8 hrs to goal rate of 55 ml/hr x 24 hrs. If no IV fluids, water flushes of 25 ml/hr 08/26: Valproic acid level 7.4. - NGT remove by patient. Spoke to Dr. Harry about PEG tube placement for nutrition, agreeable. GI consulted plan for PEG tube placement tomorrow. 08/26: MRI shows multiple embolic infarcts in the left temporal, left frontal, left occipital, and left parietal lobes. Echo w/ bubble ordered to rule put cardioembolic source of the infarct. Plan - Continue Zosyn 3.375 g (08/23- - Neurology consulted- MRI and EEG ordered,pending - Speech therapy referral- recommends alternative nutrition routes - Consulted GI- PEG tube placement tomorrow ? Correct electrolytes as necessary A-fib, with RVR Primary hypertension [id number]: 3 Rate: Uncontrolled Rhythm: Irregular Home medications: Eliquis 2.5 mg twice daily PO and metoprolol to tartrate 25 mg twice daily PO -STOPPED Lovenox 84 mg SC BID on 08/25 Plan ? resume metoprolol tartrate 25 mg BID via NG rate control and metoprolol 2.5mg IVP PRN for tachycardia - resume home eliquis 2.5mg NG BID ? Labetalol 10 mg IV every 4 hours as needed for systolic blood pressure greater than 170 - Echocardiogram ordered-, PENDING READ. - 09/05 ECHO w/bubble study ordered. Non-onsulin dependent Type 2 diabetes mellitus 08/22/25- A1c 6.4. Does not appear to be on any medications Plan ? Insulin sliding scale ? Hypoglycemia protocol in place. Bipolar 1 disorder Patient takes Depakote delayed release 125 mg twice daily Plan ? Resume once valproic acid levels come back Constipation Patient takes Fleet enema and milk of magnesia KUB showed; Moderate stool throughout the colon and nonobstructive bowel gas pattern Plan ? Bowel regimen ordered - Continue to monitor for bowel movements Moderate QTc prolongation EKG on arrival showed QTc 470 ms Patient at risk for life-threatening arrhythmias, particularly torsades de points Plan ? Keep potassium above 4 and magnesium above 2 ? Telemetry ? Avoid QTc prolonging drugs Hospital management: Lines: peripheral IV Diet: NPO Bowel: Senna and MIRALAX DVT prophylaxis: Lovenox Disposition: Telemetry for acute cephalopathy 2/2 multiple embolic stroke, A-fib RVR, CODE STATUS: DNR Patient seen and assessed under supervision of attending physician Dr. Greer and discuss with senior resident Dr. Arsenio Wallis PGY-2 Anay Leonard MD PGY-1, Internal Medicine Please note: this document was transcribed using voice recognition technology; minor inaccuracies may be present. Attending Provider Attestation/Addendum Kari Haddad, , attest that I was physically present for the hernández portions of the service and evaluated the patient with the resident and I reviewed and discussed the case with the resident and agree with the resident's findings and plans of care as documented above Patient seen and evaluated this AM. She remains somnolent. Patient removed NG tube overnight. However, MRI was done this morning showing multiple embolic type acute infarcts in the left temporal, left frontal, left occiptal, left parietal lobe. Patient had been on eliquis 2.5mg PO BID, but unclear why she is on a lower dose. Per family, patient has not seen a cold food packer in the past. discussed with speech therapist regarding progress, who recommends PEG tube as patient does not want to open her mouth. Family agreeable to PEG tube placement. GI consulted. Last dose of eliquis was yesterday when NG tube was in place.
[2025-08-26 16:00] VITALS: BP 140/81; PULSE 66; PULSE 72; RESP 17; TEMP 36.6; O2SAT 98
--- NOTE | 2025-08-26 18:00 | PC.NURSE ---
Spoke with Ermias and informed her that due to not having IV access we were not able to give the 1400 Zosyn. We now have IV access and she said to go ahead and ask pharmacy how we can give that dose late. Toñito in pharmacy instructed me to go ahead and put in a 1 time order for zosyn to run at 100ml//hr (half hour total) and that would make it so the pt can have her scheduled 2200 dose
[2025-08-26 20:00] VITALS: BP 99/83; PULSE 70; PULSE 92; RESP 19; TEMP 36.7; O2SAT 98
--- NOTE | 2025-08-26 20:15 | PD.IMCONS ---
HPI Data of Consult Requesting Physician: Kari Greer DO Primary Care Provider: Nadya Rebollar MD Consult Narrative Reason for consult: Failure to thrive evaluation for PEG placement History of present illness: 85 years old female who was admitted with altered mental status MRI scan shows multiple embolic infarcts left hemisphere Patient had a NGT placed which she pulled out and went into atrial fibrillation during the NGT was in place then reverted back to controlled rate She does have a history of underlying dementia diabetes mellitus and paroxysmal atrial fibrillation on Eliquis cc:: cc: Kari Greer DO Review of Systems Review of Systems ROS Unobtainable: unobtainable due to medical condition Past Medical History Surgical History OTHER SURGICAL HX: As in the history of present illness Meds Home Medications and Allergies Home Medications ?Medication ?Instructions ?Recorded ?Confirmed ?Type apixaban 2.5 mg tablet (Eliquis) 2.5 mg PO BID 08/22/25 08/22/25 History divalproex 125 mg tablet,delayed 125 mg PO Q12H 08/22/25 08/22/25 History release (Depakote) megestrol 400 mg/10 mL (10 mL) 400 mg PO BID 08/22/25 08/22/25 History oral suspension metoprolol tartrate 25 mg tablet 25 mg PO BID 08/22/25 08/22/25 History multivitamin (Daily Multi-Vitamin 1 tab PO QAM 08/22/25 08/22/25 History tablet) Allergies Allergy/AdvReac Type Severity Reaction Status Date / Time No Known Allergies Allergy Verified 08/21/25 18:01 Exam Vital Signs Temp Pulse Resp BP Pulse Ox O2 Del Method 97.8 F 66 17 140/81 H 98 Room Air 08/26/25 16:00 08/26/25 16:00 08/26/25 16:00 08/26/25 16:00 08/26/25 16:00 08/26/25 16:00 Constitutional Comments: Chronically ill-appearing Routine Respiratory Exam Comments: Normal to auscultation Routine Abdominal Exam Comments: Soft nontender Results Labs 08/26/25 04:15 08/26/25 04:15 Labs: Short CBC 08/26/25 Range/Units 04:15 WBC 8.4 (3.6-11.0) Thou/mm3 Hgb 11.6 L (12.0-16.0) g/dL Hct 35.2 L (36.0-46.0) % Plt Count 275 (140-440) Thou/mm3 BMP 08/26/25 04:15 Sodium 140 Potassium 4.1 Chloride 104 Carbon Dioxide 25.1 BUN 7 L Creatinine 0.8 Glucose 91 Calcium 8.9 ABG Interpretation ABG results: 08/22/25 00:19 VBG pH 7.50 VBG pCO2 33 L VBG pO2 110 H VBG Base Excess 3 Assessment and Plan Additional Assessment & Plan Additional Plan: # Failure to thrive consent will be obtained from the rouge sifter Becky for percutaneous endoscopic gastrostomy placement via fiberoptic esophagogastroduodenoscopy under intravenous moderate sedation scheduled for tomorrow N.p.o. midnight tonight except p.o. meds Other medical problems include Dementia Paroxysmal atrial fibrillation on Eliquis Diabetes mellitus type 2 Possibly Parkinson disease Possibly embolic strokes to the brain left-sided thank you very much for the opportunity to participate in care of this patient
[2025-08-26] MEDS: SODIUM CHLORIDE 0.9% 1000 ML 1,000 ML 85 ML IV (21:36)
[2025-08-27] VITALS (22 sets, daily range): BP systolic 114–170; BP diastolic 64–131; PULSE 78–157; RESP 14–30; TEMP 36–37.7; O2SAT 95–100; BMI 30.4
[2025-08-27] MEDS: PIPER/TAZO 3.375 GM PREMIX 3.375 GM/50 ML BAG IV ×3 (05:09→21:44)
[2025-08-27 07:02] LABS: Basophils # (Auto) 0.0 Thou/mm3 (0.0-0.2); Basophils % (Auto) 0 % (0-2.5); Eosinophils # (Auto) 0.3 Thou/mm3 (0.0-0.5); Eosinophils % (Auto) 3 % (0-10); Hematocrit 33.5 % (36.0-46.0); Hemoglobin 11.5 g/dL (12.0-16.0); Immature Granulocytes Auto 0.08 Thou/mm3 (0.00-0.00); Lymphocytes # (Auto) 2.2 Thou/mm3 (1.0-4.8); Lymphocytes % (Auto) 23 % (10-50); Mean Corpuscular HGB Conc 34.3 g/dl (31.0-37.0); Mean Corpuscular Hemoglobin 30.7 pg (25.0-35.0); Mean Corpuscular Volume 90 fL (80-100); Monocytes # (Auto) 0.7 Thou/mm3 (0.0-0.8); Monocytes % (Auto) 8 % (0-12); Neutrophils # (Auto) 6.3 Thou/mm3 (1.8-7.7); Neutrophils % (Auto) 66 % (37-80); Nucleated Red Blood Cell # 0.00 Thou/mm3 (0.00-0.00); Nucleated Red Blood Cell % 0 /100 WBC (0); Platelet Count 274 Thou/mm3 (140-440); RDW Standard Deviation 44.6 fL (36.4-46.3); Red Blood Count 3.74 Miln/mm3 (4.00-5.20); White Blood Count 9.6 Thou/mm3 (3.6-11.0)
[2025-08-27 07:24] LABS: Anion Gap 15 (7-16); BUN/Creatinine Ratio 7 Ratio (12-20); Blood Urea Nitrogen 5 mg/dL (9-23); Calcium 8.7 mg/dL (8.3-10.6); Carbon Dioxide 23.5 mMol/L (20.0-31.0); Chloride 102 mMol/L (98-107); Creatinine (Component) 0.7 mg/dL (0.6-1.3); Estimated Creatinine Clearance 62.3 mL/min (>60); Glucose 79 mg/dL (74-106); Magnesium 1.6 mg/dL (1.6-2.6); Osmolality,Calculated 275 (275-295); Phosphorous 3.4 mg/dL (2.4-5.1); Potassium 3.9 mMol/L (3.4-5.1); Sodium 140 mMol/L (136-145); eGFR > 60 See Note
[2025-08-27] MEDS: Magnesium Sulfate 4 GM Ivpb 4 GM/50 ML BAG IV (08:34)
[2025-08-27] MEDS: POTASSIUM CHL 10 mEq IVPB 10 MEQ/100 ML BAG 100 MEQ IV ×2 (08:35→09:56)
[2025-08-27] MEDS: VALPROATE SOD INJ 250 MG in SODIUM CHLORIDE 0.9% 50 ML 52.5 MG IV ×2 (08:36→20:39)
--- NOTE | 2025-08-27 12:29 | ESPR_ITS ---
<Statement entered by Savita Ramirez MD - 08/27/25 14:25> Patient was seen and examined at bedside MRI showed multiple embolic infarct of the left frontal, temporal, occipital, parietal lobes. Which explain her profound altered mental status and aphasia. Patient remained unable to cooperate for feeding. Pending PEG tube placement today by Dr. Arthur. Will continue the patient Eliquis and her dose 5 mg p.o. twice daily instead of home dose 2.5 mg twice daily after NG tube placement. Will continue treating her Klebsiella ESBL UTI for 1 more day to finish 5 days course of treatment. - Patient's plan and care discussed with my attending, Dr. Zoey Ramirez MD Internal Medicine PGY-3 Documentation for date of: 08/27/25 Subjective Subjective Interval history: No acute event overnight. Today patient seen and examined at bedside, saturating well on room air However still somnolence and not opening eyes. Reviewed her labs and replete her magnesium magnesium sulfate 4 mg. Started a Valproate IV per pharmacy dosing. PEG tube placement planned for today. Plan to increase Eliquis dosage from 2.5 to 5 mg when PEG is placed. Per neurology due to patient multiple embolic infarct from the left cerebral hemisphere and functional dysphagia from progressive cognitive impairment, patient has poor prognosis for meaningful neurological recovery.Will DC antibiotic Zosyn tomorrow. Exam Vital Signs Temp Pulse Resp BP Pulse Ox O2 Del Method 97.2 F 78 17 121/99 H 98 Room Air 08/27/25 08:00 08/27/25 11:55 08/27/25 08:00 08/27/25 08:00 08/27/25 08:00 08/27/25 08:00 Narrative Exam General: Asleep, not interactive, will not opens eyes after repeated stimuli. HEENT: Normocephalic, atraumatic, mucous membranes dry. Heart: Regular rate and rhythm, normal S1 and S2, no murmurs. Lungs: Clear to auscultation with no wheezing or crackles. Abdomen: Soft, nondistended, nontender, positive bowel sounds. ?No guarding or rebound tenderness. Neurologic: Alert and oriented x0, does not follow commands. Extremities: No edema. Skin: No rash or ecchymoses. Objective Labs 08/27/25 05:52 08/27/25 05:52 Labs: Laboratory Results - last 24 hr 08/27/25 05:52 WBC 9.6 RBC 3.74 L Hgb 11.5 L Hct 33.5 L MCV 90 MCH 30.7 MCHC 34.3 RDW Std Deviation 44.6 Plt Count 274 Neut % (Auto) 66 Lymph % (Auto) 23 [place] % (Auto) 8 Eos % (Auto) 3 Baso % (Auto) 0 Neut # (Auto) 6.3 Lymph # (Auto) 2.2 [place] # (Auto) 0.7 Eos # (Auto) 0.3 Baso # (Auto) 0.0 Immature Gran # (Auto) 0.08 H Absolute Nucleated RBC 0.00 Immature Gran % 1 H Nucleated RBC % 0 Sodium 140 Potassium 3.9 Chloride 102 Carbon Dioxide 23.5 Anion Gap 15 BUN 5 L Creatinine 0.7 Estim Creat Clear Calc 62.3 eGFR > 60 BUN/Creatinine Ratio 7 L Glucose 79 Calculated Osmolality 275 Calcium 8.7 Phosphorus 3.4 Magnesium 1.6 ABG Interpretation ABG results: 08/22/25 00:19 VBG pH 7.50 VBG pCO2 33 L VBG pO2 110 H VBG Base Excess 3 Quality Measures Quality Measures VTE prophylaxis Advance care planning discussed with:: other Assessment & Plan Assessment Current Active Medications: Generic Name Dose Route Start Last Admin Trade Name Freq PRN Reason Stop Dose Admin Acetaminophen 650 mg 08/21/25 22:59 Acetaminophen 325 Mg Tablet PO 09/20/25 22:58 Q6HR PRN PAIN (1-3) OR FEVER > 100.4 Apixaban 2.5 mg 08/25/25 21:00 08/26/25 10:04 Apixaban 2.5 Mg Tablet NG 09/24/25 20:59 Not Given On Hold: 08/26/25 16:04 BID JACKELINE Dextrose 25 ml 08/21/25 23:51 Dextrose 50%-Water Inj 50 Ml Syringe IV 09/20/25 23:50 Q15MIN PRN BG 50-70 responsive npo pt Dextrose 50 ml 08/21/25 23:51 Dextrose 50%-Water Inj 50 Ml Syringe IV 09/20/25 23:50 Q15MIN PRN BG <50 OR BG <70 & pt unresponsive Glucagon 1 mg 08/21/25 23:51 Glucagon Inj 1 Mg Vial IM Q15MIN PRN BG <70, and no IV access Piperacillin/Tazobactam/Dextrose 3.375 gm in 50 mls @ 12.5 mls/hr 08/23/25 17:30 08/27/25 05:09 Zosyn IV 08/30/25 17:29 12.5 mls/hr Q8HR [facility] Administration Protocol Valproic Acid 250 mg/ Sodium 52.5 mls @ 52.5 mls/hr 08/27/25 08:00 08/27/25 08:36 Chloride IV 09/26/25 07:59 52.5 mls/hr Q12H [facility] Administration Protocol Insulin Human Lispro 0 unit 08/21/25 23:45 08/27/25 11:38 Insulin Lispro (Admelog) 1 Unit/0.01 Ml Unit SC 09/20/25 23:44 Not Given Q6H [facility] Protocol Labetalol HCl 10 mg 08/22/25 09:15 Labetalol Inj 5 Mg/Ml Vial 4 Ml IVP 09/20/25 23:04 Q4H PRN SBP >170 Metoprolol Tartrate 2.5 mg 08/25/25 16:16 08/27/25 06:36 Metoprolol Tartrate Inj 1 Mg/Ml Vial 5 Ml IVP 09/24/25 16:15 2.5 mg Q5MIN PRN Administration TACHYCARDIA Metoprolol Tartrate 25 mg 08/25/25 17:25 08/27/25 09:53 Metoprolol Tartrate 25 Mg Tablet NG 09/24/25 17:24 Not Given BID [facility] Ondansetron HCl 4 mg 08/21/25 22:59 Ondansetron Inj 2 Mg/Ml Inj 2 Ml IVP 09/20/25 22:58 Q6H PRN NAUSEA OR VOMITING Protocol Polyethylene Glycol 17 gm 08/22/25 09:00 08/27/25 09:54 Polyethylene Glycol 17 Gm Packet PO 09/21/25 08:59 Not Given QDAY [facility] Sennosides 1 tab 08/22/25 09:00 08/27/25 09:54 Senna Tablet PO 09/21/25 08:59 Not Given QDAY [facility] Protocol Plan 85-year-old female with a history of dementia (diagnosed in 2023), type 2 diabetes mellitus, paroxysmal atrial fibrillation (on Eliquis), bipolar I disorder, borderline personality disorder, and recurrent UTIs presents to the ED with altered mental status. Patient admitted for acute encephalopathy likely secondary to UTI and found to have multiple embolic left cerebral hemisphere stroke. Acute encephalopathy 2/2 Multiple left cerebral hemispheres embolic stroke Functional dysphagia History of dementia DDx: Infectious (CAP, UTI), metabolic (electrolyte derangement, uremia, hypo/hyperglycemia), hypoxic (respiratory failure, aspiration, MARCO ANTONIO), endocrine (thyroid, adrenal dysfunction), toxic/drug-induced, neurologic (CVA, seizures, brain mass), psychiatric (acute delirium, depression, psychosis) Patient came in and found to have 2 or more SIRS criteria and was evaluated for sepsis. However, based upon further work-up, sepsis was ruled out.Temperature on arrival 99.1WBC 8.5 with no left shift Head CT within normal limits. Chest x-ray clear. VBG showed pH 7.5, pCO2 33 - Patient takes Depakote for bipolar disorder, unsure at this time if taking too much Depakote recently - Ammonia, B12, folate all within normal limit. - Patient failed swallow screen, hence Eliquis and metoprolol were held initially -Board Machine Set Up Operator referral- Glucerna 1.2 at 20 ml/hr via NG tube by pump. - Speech therapy referral- recommends alternative nutrition routes 08/26: Valproic acid level 7.4. - NGT remove by patient. Spoke to Dr. Harry about PEG tube placement for nutrition, agreeable. GI consulted plan for PEG tube placement tomorrow. 08/26: MRI shows multiple embolic infarcts in the left temporal, left frontal, left occipital, and left parietal lobes. Echo w/ bubble ordered to rule put cardioembolic source of the infarct. Plan - Neurology consulted- EEG,pending - Speech therapy onboard - Consulted GI- PEG tube placement today ? Correct electrolytes as necessary ESBL Klebsiella UTI History of recurrent UTIs Patient came in and found to have 2 or more SIRS criteria and was evaluated for sepsis. However, based upon further work-up, sepsis was ruled out. Urine was turbid, with positive leukocyte esterase and 617 WBCs. Urine culture grew Klebsiella ESBL resistant to ceftriaxone which the patient was initiated on until 08/23 when it was switched to Zosyn. May have contributed to altered mentation at first while untreated. - Stopped ceftriaxone (08/21-08/23)- As urine culture grew ESBL klebsiella pneumonia Plan - Continue Zosyn 3.375 g (08/23- dc tomorrow - Contact precaution A-fib, with RVR Primary hypertension [id number]: 3 Rate: Uncontrolled Rhythm: Irregular Home medications: Eliquis 2.5 mg twice daily PO and metoprolol to tartrate 25 mg twice daily PO -STOPPED Lovenox 84 mg SC BID on 08/2508/24/25 ECHO- Limited exam due to patient pushing probe off. EF 55- 60%,indeterminate diastolic function. Mild mitral and tricuspid valve regurgitation - 09/05 ECHO w/bubble study ordered-> cancelled Plan -Increase dose of Eliquis 2.5 to 5 mg once PEG tube is placed - Cardiology Dr. Watt consulted- stop metoprolol tartrate 25mg NG and start Metroprol succinate XL [address] No benefit from echo with bubble study or MARSHALL as patient has already had the embolic stroke. ? Labetalol 10 mg IV every 4 hours as needed for SBP> 170 and Metoprolol 2.5mg IVP PRN for tachycardia Non-onsulin dependent Type 2 diabetes mellitus 08/22/25- A1c 6.4. Does not appear to be on any medications Plan ? Insulin sliding scale ? Hypoglycemia protocol in place. Bipolar 1 disorder Patient takes Depakote delayed release 125 mg twice daily Plan ?Valproate 250 mg IV every 12 (08/27- Constipation Patient takes Fleet enema and milk of magnesia KUB showed; Moderate stool throughout the colon and nonobstructive bowel gas pattern Plan ? Bowel regimen ordered - Continue to monitor for bowel movements Moderate QTc prolongation EKG on arrival showed QTc 470 ms Patient at risk for life-threatening arrhythmias, particularly torsades de points Plan ? Keep potassium above 4 and magnesium above 2 ? Telemetry ? Avoid QTc prolonging drugs Hospital management: Lines: peripheral IV Diet: NGT Bowel: Senna and MIRALAX DVT prophylaxis: Lovenox Disposition: Telemetry for acute cephalopathy 2/2 multiple embolic stroke, A-fib RVR, CODE STATUS: DNR Patient seen under supervision of attending physician Dr. Greer and discuss with senior resident Dr. Ramirez PGY-3 Anay Leonard MD PGY-1, Internal Medicine Please note: this document was transcribed using voice recognition technology; minor inaccuracies may be present. Attending Provider Attestation/Addendum I, Kari Greer, DO, attest that I was physically present for the hernández portions of the service and evaluated the patient with the resident and I reviewed and discussed the case with the resident and agree with the resident's findings and plans of care as documented above Patient seen and evaluated this AM. She remains somnolent, but withdraws to noxious stimuli and grunts/ moans while trying to speak. Pending echocardiogram due to shower emboli noted on MRI. She is pending PEG tube placement today as patient has not been able to have diet advanced successfully . Cardiology consult pending given afib. Will restart eliquis and beta jess once PEG tube is in place.
[2025-08-27] MEDS: hydrALAZINE INJ 20 MG/ML VIAL 10 MG IVP (15:50)
--- NOTE | 2025-08-27 15:52 | ESCONSULT_ITS ---
<Statement entered by Anjelica Watt MD - 08/29/25 09:03> I personally evaluated examined this patient with resident physician PGY [address] Cedeño the patient has history of atrial fibrillation on suboptimal dose of Eliquis 2.5 twice daily came to the hospital with multiple embolic stroke phenomena patient possibly has cardiogenic emboli already had a transthoracic echo unremarkable patient does not require any further workup MARSHALL will not add any thing to chemical cell changer patient will be recommended to be treated with Eliquis 5 mg twice daily appropriate dose no further workup is necessary. Evaluate patient with resident physician agree with the treatment plan recommendation as documented HPI Data of Consult Consult date: 08/27/25 Requesting Physician: Kari Greer DO Admitting Provider: Lilian Jefferson MD Attending Provider: Kari Greer DO Primary Care Provider: Nadya Rebollar MD Consult Narrative Reason for consult: embolic stroke, a fib History of present illness: Patient is 85-year-old female with past medical history dementia (diagnosed in 2023), type 2 diabetes mellitus, paroxysmal atrial fibrillation (on Eliquis), chronic kidney disease, bipolar I disorder, borderline personality disorder, and recurrent urinary tract infections. She presented to ED on 08/21 due to acute encephalopathy. Infectious workup consistent with UTI and patient was in A-fib with RVR. Patient's baseline per SNF paperwork appears to be AO x 2. During hospital course mentation did not improve. Neurology was consulted and recommended for MRI. MRI on 08/26 showed multiple embolic type acute infarcts left temporal, left frontal, left occipital, left parietal lobe. Likely the cause of the global aphasia and lack of interacting. Oral intake has been poor therefore patient going for PEG tube placement for nutritional support. Cardiology was consulted for A-fib with RVR. Telemetry was reviewed patient is in A-fib rate 130?140. Noted that patient's Eliquis dose was suboptimal. Patient should be on Eliquis 5 mg twice daily. Stop metoprolol tartrate and start patient on metoprolol succinate 25 mg daily for rate control. No benefit from echo with bubble study or MARSHALL as patient has already had the embolic stroke. Will evaluate cardiac function on a regular echo. cc:: cc: Kari Greer DO Review of Systems Review of Systems ROS Unobtainable: unobtainable due to mental status Exam Vital Signs Temp Pulse Resp BP Pulse Ox O2 Del Method O2 Flow Rate 96.8 F 132 H 18 166/101 H 98 Room Air 3 08/27/25 12:00 08/27/25 15:45 08/27/25 15:45 08/27/25 15:45 08/27/25 15:45 08/27/25 12:00 08/27/25 15:45 Narrative Exam General: Asleep, not interactive, will not opens eyes after repeated stimuli. HEENT: Normocephalic, atraumatic, mucous membranes dry. Heart: Regular rate and rhythm, normal S1 and S2, no murmurs. Lungs: Clear to auscultation with no wheezing or crackles. Abdomen: Soft, nondistended, nontender, positive bowel sounds. ?No guarding or rebound tenderness. PEG tube placement Neurologic: Alert and oriented x0, does not follow commands. Extremities: No edema. Skin: No rash or ecchymoses. Results Labs 08/27/25 05:52 08/27/25 05:52 Labs: Short CBC 08/27/25 Range/Units 05:52 WBC 9.6 (3.6-11.0) Thou/mm3 Hgb 11.5 L (12.0-16.0) g/dL Hct 33.5 L (36.0-46.0) % Plt Count 274 (140-440) Thou/mm3 BMP 08/27/25 05:52 Sodium 140 Potassium 3.9 Chloride 102 Carbon Dioxide 23.5 BUN 5 L Creatinine 0.7 Glucose 79 Calcium 8.7 ABG Interpretation ABG results: 08/22/25 00:19 VBG pH 7.50 VBG pCO2 33 L VBG pO2 110 H VBG Base Excess 3 Quality Measures Quality Measures VTE prophylaxis Advance care planning discussed with:: other Medications Home Medications and Allergies Home Medications ?Medication ?Instructions ?Recorded ?Confirmed ?Type apixaban 2.5 mg tablet (Eliquis) 2.5 mg PO BID 5 08/22/25 History divalproex 125 mg tablet,delayed 125 mg PO Q12H 08/22/25 History release (Depakote) megestrol 400 mg/10 mL (10 mL) 400 mg PO BID 08/22/25 08/22/25 History oral suspension metoprolol tartrate 25 mg tablet 25 mg PO BID 08/22/25 08/22/25 History multivitamin (Daily Multi-Vitamin 1 tab PO QAM 5 08/22/25 History tablet) Allergies Allergy/AdvReac Type Severity Reaction Status Date / Time No Known Allergies Allergy Verified 08/21/25 18:01 Visit Medications Acetaminophen (Acetaminophen 325 Mg Tablet) 650 mg PO Q6HR PRN PRN Reason: PAIN (1-3) OR FEVER > 100.4 Stop: 09/20/25 22:58 Apixaban (Apixaban 2.5 Mg Tablet) 2.5 mg NG BID JACKELINE On Hold: 08/26/25 16:04 Stop: 09/24/25 20:59 Last Admin: 08/26/25 10:04 Dose: Not Given Dextrose (Dextrose 50%-Water Inj 50 Ml Syringe) 25 ml IV Q15MIN PRN PRN Reason: BG 50-70 responsive npo pt Stop: 09/20/25 23:50 Dextrose (Dextrose 50%-Water Inj 50 Ml Syringe) 50 ml IV Q15MIN PRN PRN Reason: BG <50 OR BG <70 & pt unresponsive Stop: 09/20/25 23:50 Diphenhydramine HCl (Diphenhydramine Inj 50 Mg/Ml Vial) 25 mg IVP [id number] PRN PRN Reason: MODERATE SEDATION Fentanyl Citrate (Fentanyl Cit Inj 50 Mcg/Ml Amp 2ml) 50 mcg IVP Q2M PRN PRN Reason: MODERATE SEDATION Glucagon (Glucagon Inj 1 Mg Vial) 1 mg IM Q15MIN PRN PRN Reason: BG <70, and no IV access Piperacillin/Tazobactam/Dextrose (Zosyn) 3.375 gm in 50 mls @ 12.5 mls/hr IV Q8HR J[facility]INE; Protocol Stop: 08/30/25 17:29 Last Admin: 08/27/25 13:02 Dose: 12.5 mls/hr Valproic Acid 250 mg/ Sodium (Chloride) 52.5 mls @ 52.5 mls/hr IV Q12H JACK[facility]INE; Protocol Stop: 09/26/25 07:59 Last Admin: 08/27/25 08:36 Dose: 52.5 mls/hr Insulin Human Lispro (Insulin Lispro (Admelog) 1 Unit/0.01 Ml Unit) 0 unit SC Q6H [facility]; Protocol Stop: 09/20/25 23:44 Last Admin: 08/27/25 11:38 Dose: Not Given Labetalol HCl (Labetalol Inj 5 Mg/Ml Vial 4 Ml) 10 mg IVP Q4H PRN PRN Reason: SBP >170 Stop: 09/20/25 23:04 Metoprolol Tartrate (Metoprolol Tartrate Inj 1 Mg/Ml Vial 5 Ml) 2.5 mg IVP Q5MIN PRN PRN Reason: TACHYCARDIA Stop: 09/24/25 16:15 Last Admin: 08/27/25 06:36 Dose: 2.5 mg Metoprolol Tartrate (Metoprolol Tartrate 25 Mg Tablet) 25 mg NG BID [facility] Stop: 09/24/25 17:24 Last Admin: 08/27/25 09:53 Dose: Not Given Midazolam HCl (Midazolam Inj 1 Mg/Ml Vial 2 Ml) 2 mg IVP Q2M PRN PRN Reason: Moderate Sedation Ondansetron HCl (Ondansetron Inj 2 Mg/Ml Inj 2 Ml) 4 mg IVP Q6H PRN; Protocol PRN Reason: NAUSEA OR VOMITING Stop: 09/20/25 22:58 Polyethylene Glycol (Polyethylene Glycol 17 Gm Packet) 17 gm PO QDAY [facility] Stop: 09/21/25 08:59 Last Admin: 08/27/25 09:54 Dose: Not Given Sennosides (Senna Tablet) 1 tab PO QDAY [facility]; Protocol Stop: 09/21/25 08:59 Last Admin: 08/27/25 09:54 Dose: Not Given Discontinued Medications Apixaban (Apixaban 2.5 Mg Tablet) 2.5 mg PO BID [facility] Stop: 09/21/25 08:59 Last Admin: 08/22/25 09:05 Dose: Not Given Enoxaparin Sodium (Enoxaparin Sod Inj 40 Mg/0.4 Ml Syringe) 40 mg SC QDAY [facility] Stop: 09/05/25 08:59 Enoxaparin Sodium (Enoxaparin Sod Inj 100 Mg/Ml Syringe) 84 mg 1 mg/kg (84 mg) SC BID [facility] Stop: 09/06/25 20:59 Last Admin: 08/25/25 09:57 Dose: 84 mg Heparin Sodium (Porcine) (Heparin Sod Inj 5000 Unit/Ml Vial) 5,000 unit SC Q12HR [facility] Stop: 09/04/25 23:29 Last Admin: 08/21/25 23:35 Dose: 5,000 unit Heparin Sodium (Porcine) (Heparin Sod Inj 5000 Unit/Ml Vial) 5,000 unit SC BID [facility] Stop: 09/05/25 20:59 Last Admin: 08/23/25 08:56 Dose: 5,000 unit Ceftriaxone Sodium/Dextrose (Rocephin/D5w 1gm Iv Premix) 1 gm in 50 mls @ 100 mls/hr IV QDAY [facility] Stop: 08/28/25 23:07 Last Admin: 08/23/25 08:52 Dose: 100 mls/hr Lactated Ringer's (Lactated Ringers) 1,000 mls @ 999 mls/hr IV .Q1H1M ONE Stop: 08/22/25 02:07 Last Infusion: 08/22/25 02:24 Dose: Infused Lactated Ringer's (Lactated Ringers) 1,000 mls @ 75 mls/hr IV .[id number] [facility] Stop: 08/22/25 15:34 Last Admin: 08/22/25 02:23 Dose: 75 mls/hr Magnesium Sulfate (Magnesium Sulfate Ivpb) 2 gm in 50 mls @ 25 mls/hr IV X1 ONE Stop: 08/22/25 09:22 Last Admin: 08/22/25 09:04 Dose: 25 mls/hr Lactated Ringer's (Lactated Ringers) 1,000 mls @ 85 mls/hr IV .[id number] [facility] Stop: 09/21/25 22:03 Last Admin: 08/26/25 21:53 Dose: Not Given Magnesium Sulfate (Magnesium Sulfate Ivpb) 4 gm in 50 mls @ 12.5 mls/hr IV X1 ONE Stop: 08/23/25 11:46 Last Admin: 08/23/25 09:11 Dose: 12.5 mls/hr Piperacillin/Tazobactam/Dextrose (Zosyn) 3.375 gm in 50 mls @ 12.5 mls/hr IV Q8HR [facility]; Protocol Stop: 08/30/25 13:59 Piperacillin/Tazobactam/Dextrose (Zosyn) 3.375 gm in 50 mls @ 100 mls/hr IV X1 [facility]; Protocol Stop: 08/23/25 10:29 Last Admin: 08/23/25 10:26 Dose: 100 mls/hr Piperacillin/Tazobactam/Dextrose (Zosyn) 3.375 gm in 50 mls @ 100 mls/hr IV X1 [facility]; Protocol Stop: 08/26/25 18:16 Last Admin: 08/26/25 18:29 Dose: 100 mls/hr Sodium Chloride (Ns) 1,000 mls @ 85 mls/hr IV .[id number] ONE Stop: 08/27/25 09:18 Last Admin: 08/26/25 21:36 Dose: 85 mls/hr Magnesium Sulfate (Magnesium Sulfate Ivpb) 4 gm in 50 mls @ 12.5 mls/hr IV X1 ONE Stop: 08/27/25 11:50 Last Admin: 08/27/25 08:34 Dose: 12.5 mls/hr Potassium Chloride (Kcl Ivpb) 10 meq in 100 mls @ 100 mls/hr IV Q1H [facility] Stop: 08/27/25 09:51 Last Admin: 08/27/25 09:56 Dose: 100 mls/hr Labetalol HCl (Labetalol Inj 5 Mg/Ml Vial 4 Ml) 10 mg IVP Q4H PRN PRN Reason: SBP >170 Stop: 09/20/25 23:04 Labetalol HCl (Labetalol Inj 5 Mg/Ml Vial 4 Ml) 10 mg IVP Q4H PRN PRN Reason: SBP >170 or HR >100 Stop: 09/20/25 23:04 Metoprolol Tartrate (Metoprolol Tartrate 25 Mg Tablet) 25 mg PO BID JACKELINE Stop: 09/20/25 23:14 Last Admin: 08/22/25 00:56 Dose: Not Given Metoprolol Tartrate (Metoprolol Tartrate 25 Mg Tablet) 25 mg PO BID [facility] Stop: 09/21/25 08:59 Last Admin: 08/23/25 09:06 Dose: Not Given Metoprolol Tartrate (Metoprolol Tartrate Inj 1 Mg/Ml Vial 5 Ml) 2.5 mg IVP X1 ONE Stop: 08/24/25 03:16 Last Admin: 08/24/25 02:29 Dose: 2.5 mg Metoprolol Tartrate (Metoprolol Tartrate Inj 1 Mg/Ml Vial 5 Ml) 2.5 mg IVP X1 ONE Stop: 08/24/25 06:31 Last Admin: 08/24/25 06:41 Dose: 2.5 mg Metoprolol Tartrate (Metoprolol Tartrate Inj 1 Mg/Ml Vial 5 Ml) 2.5 mg IVP X1 ONE Stop: 08/25/25 15:05 Last Admin: 08/25/25 15:10 Dose: 2.5 mg Metoprolol Tartrate (Metoprolol Tartrate 25 Mg Tablet) 25 mg NG BID [facility]ACK[facility]INE Stop: 09/24/25 20:59 Midazolam HCl (Midazolam Inj 1 Mg/Ml Vial 2 Ml) 1 mg IVP X1 ONE Stop: 08/27/25 09:56 Assessment & Plan Plan Patient is 85-year-old female with past medical history dementia (diagnosed in 2023), type 2 diabetes mellitus, paroxysmal atrial fibrillation (on Eliquis), chronic kidney disease, bipolar I disorder, borderline personality disorder, and recurrent urinary tract infections. She presented to ED on 08/21 due to acute encephalopathy. Cardiology was consulted for A-fib with RVR and found to have multiple embolic stroke. #Atrial fibrillation with RVR #Multiple left cerebral hemispheres embolic stroke [id number]: 3 Rate: Uncontrolled Rhythm: Irregular Home medications: Eliquis 2.5 mg twice daily PO and metoprolol to tartrate 25 mg twice daily PO -STOPPED Lovenox 84 mg SC BID on 08/2508/24/25 ECHO- Limited exam due to patient pushing probe off. EF 55- 60%,indeterminate diastolic function. Mild mitral and tricuspid valve regurgitation. Noted that patient's Eliquis dose was suboptimal. Patient should be on Eliquis 5 mg twice daily. 08/26: MRI shows multiple embolic infarcts in the left temporal, left frontal, left occipital, and left parietal lobes. -Start Eliquis 5 mg twice daily -stop metoprolol tartrate and start patient on metoprolol succinate 25 mg daily for rate control. -No benefit from echo with bubble study or MARSHALL as patient has already had the embolic stroke. -Will evaluate cardiac function on a regular echo. #Acute encephalopathy #Functional dysphagia #History of dementia #ESBL Klebsiella UTI #History of recurrent UTIs #Non-ionsulin dependent Type 2 diabetes mellitus #Bipolar 1 disorder #Constipation Primary care team to manage above conditions and ongoing care needs. The patient's management plan was discussed with my attending physician Dr. Watt. Adeline Guzman, PGY-2
--- NOTE | 2025-08-27 16:00 | SUR.PHASEI ---
pt received from OR in recovery bay 1. pt asleep but open eyes to voice, breathing unlabored on room air. v/s stable. pt has abd binder in place. report received from [place] RODRÍGUEZ.
--- NOTE | 2025-08-27 16:16 | SUR.PHASEI ---
pt tachycardic. Dr. Arthur informed by telephone. no new orders for medications given. Rn instructed to take pt back to tele for continuation of care.
--- NOTE | 2025-08-27 16:25 | SUR.PHASEI ---
pt asleep but responds to voice, breathing unlabored on room air. pt tachycardiac, all other v/s stable. pt has abd binder in place. report called to [place] RODRÍGUEZ. pt will be transferred to room at this time.
--- NOTE | 2025-08-27 17:08 | EKG_ITS ---
[facility] Test Date: 2025-08-27 Pat Name: LU MADERA Department: Room: 62A Gender: Female Door Builder: DIONTE : 1940 Requested By: Anay Leonard Order Number: [id number] Reading MD: Anay Leonard Measurements Intervals [place] Rate: 148 P: [place]: QRS: -52 QRSD: 124 T: 127 QT: 317 QTc: 498 Interpretive Statements ATRIAL FIBRILLATION WITH RAPID VENTRICULAR RESPONSE RIGHT BUNDLE BRANCH BLOCK LEFT ANTERIOR FASCICULAR BLOCK MODERATE VOLTAGE CRITERIA FOR LVH, CONSIDER NORMAL VARIANT ST DEVIATION AND MODERATE T-WAVE ABNORMALITY, CONSIDER LATERAL ISCHEMIA Compared to ECG 08/24/2025 02:04:12 Right bundle-branch block now present T-wave abnormality now present Possible ischemia now present Incomplete right bundle-branch block no longer present Myocardial infarct finding no longer present /store/S0/[id number]/[id number]
[2025-08-27] MEDS: ONDANSETRON INJ 2 MG/ML INJ 2 ML 4 MG IVP (18:56)
[2025-08-27] MEDS: METOPROLOL SUCCINATE XL 25 MG TABCR GT (20:40)
--- NOTE | 2025-08-27 21:40 | EKG_ITS ---
[facility] Test Date: 2025-08-27 Pat Name: LU MADERA [facility] Gender: Female Bilingual Hr Generalist: : 1940 Requested By: Kenn Muniz Order Number: [id number] Reading MD: Kenn Muniz Measurements Intervals [place] Rate: 129 P: MT: QRS: -62 QRSD: 125 T: 67 QT: 332 QTc: 486 Interpretive Statements ATRIAL FIBRILLATION WITH RAPID VENTRICULAR RESPONSE RIGHT BUNDLE BRANCH BLOCK LEFT ANTERIOR FASCICULAR BLOCK Compared to ECG 08/27/2025 17:35:52 T-wave abnormality no longer present Possible ischemia no longer present /store/S0/[id number].pdf
--- NOTE | 2025-08-27 22:25 | PD.VPROG1 ---
Telemedicine visit statement This visit was conducted with the use of phone visit was obtained on 08/27/25 at 2225. Documentation for date of: 08/27/25 Subjective Subjective Interval history: Patient is in telemetry today, no changes reported. Still remains unresponsive. Virtual exam Vital Signs Temp Pulse Resp BP Pulse Ox O2 Del Method O2 Flow Rate 99.4 F 92 14 126/98 H 95 Room Air 3 08/27/25 20:00 08/27/25 20:40 08/27/25 20:00 08/27/25 20:40 08/27/25 20:00 08/27/25 20:00 08/27/25 15:50 Objective Labs 08/28/25 05:39 08/28/25 05:39 Labs: Laboratory Results - last 24 hr 08/27/25 05:52 WBC 9.6 RBC 3.74 L Hgb 11.5 L Hct 33.5 L MCV 90 MCH 30.7 MCHC 34.3 RDW Std Deviation 44.6 Plt Count 274 Neut % (Auto) 66 Lymph % (Auto) 23 [place] % (Auto) 8 Eos % (Auto) 3 Baso % (Auto) 0 Neut # (Auto) 6.3 Lymph # (Auto) 2.2 [place] # (Auto) 0.7 Eos # (Auto) 0.3 Baso # (Auto) 0.0 Immature Gran # (Auto) 0.08 H Absolute Nucleated RBC 0.00 Immature Gran % 1 H Nucleated RBC % 0 Sodium 140 Potassium 3.9 Chloride 102 Carbon Dioxide 23.5 Anion Gap 15 BUN 5 L Creatinine 0.7 Estim Creat Clear Calc 62.3 eGFR > 60 BUN/Creatinine Ratio 7 L Glucose 79 Calculated Osmolality 275 Calcium 8.7 Phosphorus 3.4 Magnesium 1.6 ABG Interpretation ABG results: 08/22/25 00:19 VBG pH 7.50 VBG pCO2 33 L VBG pO2 110 H VBG Base Excess 3 Assessment & Plan Assessment 85-year-old female with a history of dementia (diagnosed in 2023), type 2 diabetes mellitus, paroxysmal atrial fibrillation (on Eliquis), bipolar I disorder, borderline personality disorder, and recurrent UTIs presents to the ED with altered mental status. Patient admitted for acute encephalopathy likely secondary to UTI, and neurology was consulted due to lack of improvement in mental status despite treatment. #Acute encephalopathy, most likely secondary to #Acute ischemic multiembolic type left temporal, frontal, occipital and parietal stroke #History of dementia Patient who is typically A&O x2 at baseline who came from [facility] was brought in due to altered mental status, as patient was somnolent and difficult to rouse. Sister additionally reported that patient had a notable decline in function and mentation over the last 1 month. - Head CT within normal limits. - Patient takes Depakote for bipolar disorder, Valproic acid level 7.4 low - Ammonia, B12, folate all within normal limits. - MRI without contrast showed multiple embolic type acute infarcts left temporal, left frontal, left occipital, left parietal lobe - At this point the stroke is most likely cause for global aphasia and lack of interactability. This stroke may have occurred any time within the last week. Additionally, patient may not have been receiving her oral medications including Eliquis and metoprolol prior to hospitalization as well due to lack of ability to swallow. - PEG tube might be planned for the patient Plan: - EEG : diffuse slowing possibly associated with dementia-related causes #Klebsiella ESBL UTI #History of recurrent UTIs Patient came in and found to have 2 or more SIRS criteria and was evaluated for sepsis. However, based upon further work-up, sepsis was ruled out. Urine was turbid, with positive leukocyte esterase and 617 WBCs. Urine culture grew Klebsiella ESBL resistant to ceftriaxone which the patient was initiated on until 08/23 when it was switched to Zosyn. May have contributed to altered mentation at first while untreated. Plan: - Continue adequate antibiotic treatment for UTI Rest of conditions to continue current management per primary team: #A-fib, with RVR #Primary hypertension #Non-insulin dependent type 2 diabetes mellitus #Bipolar 1 disorder #Constipation #Moderate QTc prolongation
[2025-08-28] VITALS (8 sets, daily range): BP systolic 102–146; BP diastolic 63–88; PULSE 85–111; RESP 14–24; TEMP 36.2–37.4; O2SAT 96–98; BMI 31.1
[2025-08-28] MEDS: PIPER/TAZO 3.375 GM PREMIX 3.375 GM/50 ML BAG IV ×2 (05:10→13:38)
[2025-08-28 05:58] LABS: Basophils # (Auto) 0.1 Thou/mm3 (0.0-0.2); Basophils % (Auto) 1 % (0-2.5); Eosinophils # (Auto) 0.3 Thou/mm3 (0.0-0.5); Eosinophils % (Auto) 3 % (0-10); Hematocrit 36.6 % (36.0-46.0); Hemoglobin 11.9 g/dL (12.0-16.0); Immature Granulocytes Auto 0.09 Thou/mm3 (0.00-0.00); Lymphocytes # (Auto) 2.3 Thou/mm3 (1.0-4.8); Lymphocytes % (Auto) 22 % (10-50); Mean Corpuscular HGB Conc 32.5 g/dl (31.0-37.0); Mean Corpuscular Hemoglobin 30.1 pg (25.0-35.0); Mean Corpuscular Volume 92 fL (80-100); Monocytes # (Auto) 0.8 Thou/mm3 (0.0-0.8); Monocytes % (Auto) 7 % (0-12); Neutrophils # (Auto) 6.9 Thou/mm3 (1.8-7.7); Neutrophils % (Auto) 67 % (37-80); Nucleated Red Blood Cell # 0.00 Thou/mm3 (0.00-0.00); Nucleated Red Blood Cell % 0 /100 WBC (0); Platelet Count 313 Thou/mm3 (140-440); RDW Standard Deviation 47.4 fL (36.4-46.3); Red Blood Count 3.96 Miln/mm3 (4.00-5.20); White Blood Count 10.4 Thou/mm3 (3.6-11.0)
[2025-08-28 06:34] LABS: Anion Gap 13 (7-16); BUN/Creatinine Ratio 8 Ratio (12-20); Blood Urea Nitrogen 7 mg/dL (9-23); Calcium 9.3 mg/dL (8.3-10.6); Carbon Dioxide 25.8 mMol/L (20.0-31.0); Chloride 102 mMol/L (98-107); Creatinine (Component) 0.9 mg/dL (0.6-1.3); Estimated Creatinine Clearance 49.0 mL/min (>60); Glucose 99 mg/dL (74-106); Magnesium 2.0 mg/dL (1.6-2.6); Osmolality,Calculated 279 (275-295); Phosphorous 3.4 mg/dL (2.4-5.1); Potassium 4.8 mMol/L (3.4-5.1); Sodium 141 mMol/L (136-145); eGFR > 60 See Note
[2025-08-28] MEDS: METOPROLOL SUCCINATE XL 25 MG TABCR GT ×2 (08:13→09:57)
[2025-08-28] MEDS: THIAMINE 100 MG TABLET GT (08:13)
[2025-08-28] MEDS: VIT B12/Vit C/FA (Nephrovite) TABLET 1 TAB GT (08:13)
[2025-08-28] MEDS: APIXABAN 2.5 MG TABLET 5 MG GT (08:14)
[2025-08-28] MEDS: POLYETHYLENE GLYCOL 17 GM PACKET GT (08:14)
[2025-08-28] MEDS: VALPROATE SOD INJ 250 MG in SODIUM CHLORIDE 0.9% 50 ML 52.5 MG IV (09:57)
--- NOTE | 2025-08-28 15:03 | ESDS_ITS ---
<Statement entered by Kari Greer DO - 08/29/25 08:20> I, Kari Greer DO, attest that I was physically present for the hernández portions of the service and evaluated the patient with the resident and I reviewed and discussed the case with the resident and agree with the resident's findings and plans of care as documented above <Statement entered by Brock Wallis MD - 08/28/25 15:10> Note reviewed and agree with care plan as documented. Please refer to the note below for further details. Plan discussed with attending physician Dr. Zoey Wallis MD PGY-2 Internal Medicine Planned Discharge Date 08/28/25 DS: Providers Provider Date of admission: 08/21/25 23:00 Primary care physician: Nadya Rebollar MD Admitting Provider: Lilian Jefferson MD Attending Provider on Admission: Kari Greer DO Consults: 08/22/25 07:51 Referral Speech Therapy Stat Comment: 08/24/25 09:44 Consult to Neurology / Tele-Neurology Stat Comment: Consulting Provider: Kun Fortune 08/25/25 11:46 Referral Registered Dietitian Stat Comment: 08/26/25 15:57 Consult to Gastroenterology Stat Comment: PEG tube placement Consulting Provider: Salud Arthur 08/27/25 07:52 Referral Physical Therapy Routine Comment: Physician Instructions: 08/27/25 09:50 Consult to Cardiology Stat Comment: Consulting Provider: Anjelica Watt 08/27/25 16:03 Referral Nutritional Services Routine Comment: Attending Provider on DC: Kari Greer DO Discharging Provider: Kari Greer DO DS: Diagnosis Problem List Completed Was Problem List Reviewed/Reconciled?: Yes Hospital Course Hospital Course Hospital course: Patient is 85-year-old female with past medical history dementia (diagnosed in 2023), type 2 diabetes mellitus, paroxysmal atrial fibrillation (on Eliquis), chronic kidney disease, bipolar I disorder, borderline personality disorder, and recurrent urinary tract infections who presented to ED at [facility] on 08/21 due to acute encephalopathy. Infectious workup consistent with ESBL Klebsiella UTI and patient was in A-fib with RVR. Patient's baseline per SNF paperwork appears to be AO x 2. During hospital course mentation did not improve. Neurology was consulted and recommended for MRI. MRI on 08/26 showed multiple embolic type acute infarcts left temporal, left frontal, left occipital, left parietal lobe. Likely the cause of the global aphasia and lack of interacting. Oral intake has been poor therefore patient going for PEG tube placement for nutritional support. Cardiology was consulted for A-fib with RVR. Telemetry was reviewed patient is in A-fib rate 130?140. Noted that patient's Eliquis dose was suboptimal. Patient should be on Eliquis 5 mg twice daily. We stopped met oprolol tartrate and started patient on metoprolol succinate 25 mg daily for rate control. No benefit from echo with bubble study or MARSHALL as patient has already had the embolic stroke. Will get echo outpatient. Patient's vitals are stable, tube feeds are at goal and is clinically stable for discharge Discharge Instructions - We are prescribing new medications for you: eliquis 5 mg in feeding tube BID; metoprolol succinate 50 mg sprinkle capsule in feeding tube 1/ day; nephro-ivelisse 0.8 mg via g-tube 1/day; vitamin b1 100 mg via g-tube 1/day; valproic acid solution via feeding tube 3/day. - Advance 10 ml every 8 hrs to goal rate of 55 ml/hr x 24 hrs. If no IV fluids, water flushes of 25 ml/hr (or per MD). - Recommend getting an echocardiogram outpatient ? Continue taking all other home medications as prescribed ? Follow-up with PCP within 1-2 weeks of discharge ? If you do not have a PCP, you can follow-up at the [facility] (you can call [phone] to make an appointment) ? Return to ED if symptoms worsen or recur Admission Diagnosis Acute encephalopathy Multiple left cerebral hemispheres embolic stroke Functional dysphagia History of dementia ESBL Klebsiella UTI History of recurrent UTIs A-fib, with RVR Primary hypertension Non-onsulin dependent Type 2 diabetes mellitus Bipolar 1 disorder Constipation Moderate QTc prolongation Patient plan of care was discussed with the attending physician, Dr. Greer & senior resident Dr. Arsenio Jessica MD PGY-1 Time Spent with Patient Time attestation: Total time spent providing and/or coordinating discharge services: Time spent: Greater than 30 minutes Exam Vital Signs Temp Pulse Resp BP Pulse Ox O2 Del Method O2 Flow Rate 97.9 F 85 24 H 132/77 H 96 Room Air 3 08/28/25 12:00 08/28/25 12:00 08/28/25 12:00 08/28/25 12:00 08/28/25 12:00 08/28/25 12:00 08/27/25 15:50 Narrative Exam General: Awake, more interactive; attempts speaking, but difficult to understand. HEENT: Normocephalic, atraumatic, mucous membranes dry. Heart: tachycardic and irregular rhythm, normal S1 and S2, no murmurs. Lungs: Clear to auscultation with no wheezing or crackles. Abdomen: Soft, nondistended, nontender, positive bowel sounds. ?No guarding or rebound tenderness. Neurologic: Patient attempting to verbalize; makes minimal movements; cannot assess much of neuro exam; does not follow commands. Extremities: No edema. Skin: No rash or ecchymoses. Discharge Plan Plan Patient Disposition: Xfer Skilled Nsg Fac (SNF) Patient condition on transfer: Stable Care Plan Goals: ? We are prescribing new medications for you: eliquis 5 mg in feeding tube BID; metoprolol succinate 50 mg sprinkle capsule in feeding tube 1/ day; nephro-ivelisse 0.8 mg via g-tube 1/day; vitamin b1 100 mg via g-tube 1/day; valproic acid solution via feeding tube 3/day. - Advance 10 ml every 8 hrs to goal rate of 55 ml/hr x 24 hrs. If no IV fluids, water flushes of 25 ml/hr (or per MD). ? Recommend getting an echocardiogram outpatient ? Continue taking all other home medications as prescribed ? Follow-up with PCP within 1-2 weeks of discharge ? If you do not have a PCP, you can follow-up at the [facility] (you can call [phone] to make an appointment) ? Return to ED if symptoms worsen or recur Prescriptions/Referrals Prescriptions/Med Rec: New apixaban 5 mg tablet 5 mg feeding tube BID 30 Days Qty: 60 0RF Nephro-Ivelisse 0.8 mg Tablet 1 tab G-tube QDAY 30 Days Qty: 30 0RF thiamine mononitrate (vit B1) 100 mg Tablet 100 mg G-tube QDAY 30 Days Qty: 30 0RF metoprolol succinate 50 mg capsule,sprinkle,ER 24hr 50 mg feeding tube QDAY 30 Days Qty: 30 0RF valproic acid (as sodium salt) 250 mg/5 mL (5 mL) solution 85 mg feeding tube TID Qty: 500 0RF Changed multivitamin [Daily Multi-Vitamin] Tablet 1 tab feeding tube QAM 30 Days Qty: 30 0RF megestrol 400 mg/10 mL (10 mL) suspension 400 mg feeding tube BID 30 Days Qty: 600 0RF Discontinued metoprolol tartrate 25 mg tablet 25 mg PO BID divalproex [Depakote] 125 mg tablet,delayed release (DR/EC) 125 mg PO Q12H Eliquis 2.5 mg tablet 2.5 mg PO BID Referrals: Nadya Rebollar MD [Primary Care Provider] Patient/Caregiver Discharge Instructions Print Language: Wolof Stand Alone Forms: Kristina Award Info., Patient Portal Info Letter Discharge Order Discharge Orders: Discharge (Routine); Ordered 08/28/25 Ordered By: Brock Wallis Quality Discharge Quality Measures VTE prophylaxis
--- NOTE | 2025-08-28 16:16 | ESPR_ITS ---
Documentation for date of: 08/28/25 Subjective Subjective Interval history: Status postplacement of a PEG tube PEG site looks good Exam Vital Signs Temp Pulse Resp BP Pulse Ox O2 Del Method O2 Flow Rate 97.9 F 85 24 H 132/77 H 96 Room Air 3 08/28/25 12:00 08/28/25 12:00 08/28/25 12:00 08/28/25 12:00 08/28/25 12:00 08/28/25 12:00 08/27/25 15:50 Objective Labs 08/28/25 05:39 08/28/25 05:39 Labs: Laboratory Results - last 24 hr 08/28/25 05:39 WBC 10.4 RBC 3.96 L Hgb 11.9 L Hct 36.6 MCV 92 MCH 30.1 MCHC 32.5 RDW Std Deviation 47.4 H Plt Count 313 D Neut % (Auto) 67 Lymph % (Auto) 22 [place] % (Auto) 7 Eos % (Auto) 3 Baso % (Auto) 1 Neut # (Auto) 6.9 Lymph # (Auto) 2.3 [place] # (Auto) 0.8 Eos # (Auto) 0.3 Baso # (Auto) 0.1 Immature Gran # (Auto) 0.09 H Absolute Nucleated RBC 0.00 Immature Gran % 1 H Nucleated RBC % 0 Sodium 141 Potassium 4.8 D Chloride 102 Carbon Dioxide 25.8 Anion Gap 13 BUN 7 L Creatinine 0.9 Estim Creat Clear Calc 49.0 L eGFR > 60 BUN/Creatinine Ratio 8 L Glucose 99 Calculated Osmolality 279 Calcium 9.3 Phosphorus 3.4 Magnesium 2.0 Impressions Impression: Failure to thrive Dysphagia status post PEG placement Continue current management ABG Interpretation ABG results: 08/22/25 00:19 VBG pH 7.50 VBG pCO2 33 L VBG pO2 110 H VBG Base Excess 3 Assessment & Plan A&P Narrative # Failure to thrive consent will be obtained from the data collection technician Becky for percutaneous endoscopic gastrostomy placement via fiberoptic esophagogastroduodenoscopy under intravenous moderate sedation scheduled for tomorrow N.p.o. midnight tonight except p.o. meds Other medical problems include Dementia Paroxysmal atrial fibrillation on Eliquis Diabetes mellitus type 2 Possibly Parkinson disease Possibly embolic strokes to the brain left-sided thank you very much for the opportunity to participate in care of this patient Time Spent With Patient Time: Total time spent is greater than 50% in coordination of care (as documented) at patient's floor/unit and/or counseling patient:
--- NOTE | 2025-08-28 16:37 | PC.SS ---
Per Dr. Greer, the patient is ready to be discharged. SW spoke to Kathi from [facility] and confirmed the patient can return today; SNF will continue with advancing diet and also confirmed the patient can return even though she is on mittents. Per Dr. Greer, the patient's contact precautions were d/c. LINN set up transportation with [facility] using an [facility]OVITA. Ambulance transportation was set up for [id number]; RN was updated, and the transferred packet was left on the patient's physical chart. LINN updated the patient's sister, who was agreeable with the discharge plan.
--- NOTE | 2025-08-28 18:52 | PC.NURSE ---
Pt transferred to [facility] via [facility] at 1840. Report called in and given to Deborah ISAACS.
--- NOTE | 2025-08-29 04:54 | PD.VPROG1 ---
Telemedicine visit statement This visit was conducted with the use of phone was obtained on 08/28/25. Documentation for date of: 08/28/25 Subjective Subjective Interval history: Patient is in telemetry today, no changes reported. Still remains unresponsive. Virtual exam Vital Signs Temp Pulse Resp BP Pulse Ox O2 Del Method O2 Flow Rate 97.2 F 101 H 19 108/70 98 Room Air 3 08/28/25 18:30 08/28/25 18:30 08/28/25 18:30 08/28/25 18:30 08/28/25 18:30 08/28/25 16:00 08/27/25 15:50 Objective Labs 08/28/25 05:39 08/28/25 05:39 Labs: Laboratory Results - last 24 hr 08/28/25 05:39 WBC 10.4 RBC 3.96 L Hgb 11.9 L Hct 36.6 MCV 92 MCH 30.1 MCHC 32.5 RDW Std Deviation 47.4 H Plt Count 313 D Neut % (Auto) 67 Lymph % (Auto) 22 [place] % (Auto) 7 Eos % (Auto) 3 Baso % (Auto) 1 Neut # (Auto) 6.9 Lymph # (Auto) 2.3 [place] # (Auto) 0.8 Eos # (Auto) 0.3 Baso # (Auto) 0.1 Immature Gran # (Auto) 0.09 H Absolute Nucleated RBC 0.00 Immature Gran % 1 H Nucleated RBC % 0 Sodium 141 Potassium 4.8 D Chloride 102 Carbon Dioxide 25.8 Anion Gap 13 BUN 7 L Creatinine 0.9 Estim Creat Clear Calc 49.0 L eGFR > 60 BUN/Creatinine Ratio 8 L Glucose 99 Calculated Osmolality 279 Calcium 9.3 Phosphorus 3.4 Magnesium 2.0 ABG Interpretation ABG results: 08/22/25 00:19 VBG pH 7.50 VBG pCO2 33 L VBG pO2 110 H VBG Base Excess 3 Assessment & Plan Assessment 85-year-old female with a history of dementia (diagnosed in 2023), type 2 diabetes mellitus, paroxysmal atrial fibrillation (on Eliquis), bipolar I disorder, borderline personality disorder, and recurrent UTIs presents to the ED with altered mental status. Patient admitted for acute encephalopathy likely secondary to UTI, and neurology was consulted due to lack of improvement in mental status despite treatment. #Acute encephalopathy, most likely secondary to #Acute ischemic multiembolic type left temporal, frontal, occipital and parietal stroke #History of dementia Patient who is typically A&O x2 at baseline who came from [facility] was brought in due to altered mental status, as patient was somnolent and difficult to rouse. Sister additionally reported that patient had a notable decline in function and mentation over the last 1 month. - Head CT within normal limits. - Patient takes Depakote for bipolar disorder, Valproic acid level 7.4 low - Ammonia, B12, folate all within normal limits. - MRI without contrast showed multiple embolic type acute infarcts left temporal, left frontal, left occipital, left parietal lobe - At this point the stroke is most likely cause for global aphasia and lack of interactability. This stroke may have occurred any time within the last week. Additionally, patient may not have been receiving her oral medications including Eliquis and metoprolol prior to hospitalization as well due to lack of ability to swallow. - PEG tube has been placed EEG : diffuse slowing possibly associated with dementia-related causes #Klebsiella ESBL UTI #History of recurrent UTIs Patient came in and found to have 2 or more SIRS criteria and was evaluated for sepsis. However, based upon further work-up, sepsis was ruled out. Urine was turbid, with positive leukocyte esterase and 617 WBCs. Urine culture grew Klebsiella ESBL resistant to ceftriaxone which the patient was initiated on until 08/23 when it was switched to Zosyn. May have contributed to altered mentation at first while untreated. Plan: - Continue adequate antibiotic treatment for UTI Rest of conditions to continue current management per primary team: #A-fib, with RVR #Primary hypertension #Non-insulin dependent type 2 diabetes mellitus #Bipolar 1 disorder #Constipation #Moderate QTc prolongation
== END 2025-08-28 18:40 | disposition skilled nursing facility (03) | DRG 65 ==
LOC: SERX 20:52 → SERHOLD 23:41 → S2NX 08-22 05:11
PROVIDERS: Specialist; Admitting Provider Student in an Organized Health Care Education/Training Program; Emergency Provider Emergency Medicine; PCP Hospitalist; Visit Provider Internal Medicine
PROC: 0DH63UZ Insertion of Feeding Device into Stomach, Percutaneous Approach (ICD-10-PCS; CPT 43246; principal; 2025-08-27 15:45)
DX: I63.40 Cerebral infarction due to embolism of unspecified cerebral artery (principal); F02.811 Dementia in other diseases classified elsewhere, unspecified severity, with agitation; N39.0 Urinary tract infection, site not specified; G93.49 Other encephalopathy; F03.93 Unspecified dementia, unspecified severity, with mood disturbance; Z16.12 Extended spectrum beta lactamase (ESBL) resistance; Z16.19 Resistance to other specified beta lactam antibiotics; F02.83 Dementia in other diseases classified elsewhere, unspecified severity, with mood disturbance; N30.00 Acute cystitis without hematuria; R47.01 Aphasia; N18.1 Chronic kidney disease, stage 1; I12.9 Hypertensive chronic kidney disease with stage 1 through stage 4 chronic kidney disease, or unspecified chronic kidney disease; E11.22 Type 2 diabetes mellitus with diabetic chronic kidney disease; I48.0 Paroxysmal atrial fibrillation; Z79.01 Long term (current) use of anticoagulants; K59.00 Constipation, unspecified; B96.1 Klebsiella pneumoniae [K. pneumoniae] as the cause of diseases classified elsewhere; R62.7 Adult failure to thrive; R13.10 Dysphagia, unspecified; Z66 Do not resuscitate; H91.90 Unspecified hearing loss, unspecified ear; F31.9 Bipolar disorder, unspecified; F60.3 Borderline personality disorder; Z87.440 Personal history of urinary (tract) infections; Z79.84 Long term (current) use of oral hypoglycemic drugs; Z79.899 Other long term (current) drug therapy; Z93.1 Gastrostomy status
CPT/HCPCS: 36415; 70450; 70553; 71045; 74018; 80048; 80053; 80164; 81001; 82140; 82607; 82746; 82803; 83036; 83605; 83735; 83880; 84100; 84443; 84484; 85025; 87077; 87081; 87086; 87186; 92526; 92610; 93005; 99283; 99308; A4649; A9577; J0360; J0696; J1200; J1644; J1650; J2250; J2405; J2543; J3010; J3475; J3480; J3490; J7030; J7120; A9270

== ENCOUNTER 2025-08-31 04:05 | Inpatient (IN) | payer MEDICARE, MEDICAID, SELFPAY ==
[2025-08-31] VITALS (21 sets, daily range): BP systolic 130–166; BP diastolic 82–117; PULSE 92–148; RESP 17–24; TEMP 36.2–37.7; O2SAT 94–100; BMI 28.9
--- NOTE | 2025-08-31 04:36 | PD.EDSKIN ---
ED Skin Abcess FB-RME/HPI General Chief complaint: Skin/Abscess/Foreign Body Stated complaint: PULLED OUT PEG TUBE Time Seen by Provider: 08/31/25 04:42 Arrival date/time: 08/31/25 04:05 RME / HPI RME / HPI narrative: See [facility] for Dr. Henderson's HPI documentation. Related Data Previous Rx's ?Medication ?Instructions ?Recorded apixaban 5 mg tablet 5 mg feeding tube BID 30 days #60 08/28/25 tabs megestrol 400 mg/10 mL (10 mL) 400 mg (10 mL) feeding tube BID 30 08/28/25 oral suspension days #600 mL metoprolol succinate 50 mg capsule 50 mg feeding tube QDAY 30 days 08/28/25 sprinkle, ext. release 24 hr #30 ea multivitamin (Daily Multi-Vitamin 1 tab feeding tube QAM 30 days #30 08/28/25 tablet) tabs thiamine mononitrate (vit B1) 100 100 mg G-tube QDAY 30 days #30 tabs 08/28/25 mg tablet valproic acid (as sodium salt) 250 85 mg (1.7 mL) feeding tube TID 08/28/25 mg/5 mL (5 mL) oral solution #500 mL vitamin B complex-vitamin C-folic 1 tab G-tube QDAY 30 days #30 tabs 08/28/25 acid 0.8 mg tablet (Nephro-Naheed) Allergies Allergy/AdvReac Type Severity Reaction Status Date / Time No Known Allergies Allergy Verified 08/21/25 18:01 Review of Systems Review of Systems Systems Reviewed: All systems reviewed, normal except as documented ED Exam Narrative Physical exam: See [facility] for Dr. Henderson's physical exam documentation. Course Quality Measures none Vital Signs Vital signs: Vital Signs Temperature 98.3 F 08/31/25 04:10 Pulse Rate 100 08/31/25 04:10 Respiratory Rate 18 08/31/25 04:10 Blood Pressure 155/82 H 08/31/25 04:10 Pulse Oximetry (%) 95 08/31/25 04:10 Oxygen Delivery Method Room Air 08/31/25 04:10 Skin / Abscess / Foreign Body MDM Narrative MDM Narrative:: This section includes all my notes and documentations, including HPI, PE, and ED course. Dani Henderson MD HPI: 85-year-old female with history of dementia YUNIEL from [facility] here after pulling out her G-tube. ROS: All negative except as documented in HPI. Physical Exam: General: Alert and oriented. No acute distress when remaining still. Eyes: Conjunctivae and lids clear. ENT: No nasal congestion. Neck: Supple. Heart: RRR. Lungs: No respiratory distress. Good air movement. No rhonchi, wheezing, rales. Abdomen: Soft and nontender. Normal bowel sounds. No distension. No rebound or guarding. Back: No CVA tenderness. Skin: Warm and dry. Neuro: Alert and oriented X 3. I reviewed EMS and intermediate notes. I reviewed all diagnostic test results. At this point, diagnoses include Treatment here included Based on my best medical judgment, made decision no further evaluation or treatment indicated at this time. Patient understands and agrees to the discharge instructions customized and printed, see below. Dani Henderson MD Patient data External records reviewed:: [facility] previous records (Per chart review, patient was admitted here on 08/21/25 for AMS.) and EMS form Clinical information provided by:: EMS Social determinants that could affect healthcare access:: housing (SNF resident) Patient has the following chronic illnesses:: dementia (diagnosed in 2023), type 2 diabetes mellitus, paroxysmal atrial fibrillation (on Eliquis), chronic kidney disease, bipolar I disorder, borderline personality disorder, and recurrent urinary tract infections How is presenting disease/condition affected by chronic disease/condition?: uneffected by Evaluation data Lab and/or radiology exams considered but not ordered:: none Medications / Prescriptions Medications or Prescriptions considered but not ordered:: none Consultations Consultation(s) initiated? (list below): No Discharge Plan Prescriptions/Referrals Prescriptions/Med Rec: No Action apixaban 5 mg tablet 5 mg feeding tube BID 30 Days Qty: 60 0RF Nephro-Naheed 0.8 mg Tablet 1 tab G-tube QDAY 30 Days Qty: 30 0RF thiamine mononitrate (vit B1) 100 mg Tablet 100 mg G-tube QDAY 30 Days Qty: 30 0RF multivitamin [Daily Multi-Vitamin] Tablet 1 tab feeding tube QAM 30 Days Qty: 30 0RF metoprolol succinate 50 mg capsule,sprinkle,ER 24hr 50 mg feeding tube QDAY 30 Days Qty: 30 0RF valproic acid (as sodium salt) 250 mg/5 mL (5 mL) solution 85 mg feeding tube TID Qty: 500 0RF megestrol 400 mg/10 mL (10 mL) suspension 400 mg feeding tube BID 30 Days Qty: 600 0RF Patient/Caregiver Discharge Instructions Print Language: Georgian
--- NOTE | 2025-08-31 05:09 | PD.EDRME ---
Rapid Medical Screening Exam RME Arrival date/time: 08/31/25 04:[address] Henderson's HPI documentation. Chief Complaint: Skin/Abscess/Foreign Body Time Seen by Provider: 08/31/25 04:42 Vital signs: Vital Signs Temperature 98.3 F 08/31/25 04:10 Pulse Rate 100 08/31/25 04:10 Respiratory Rate 18 08/31/25 04:10 Blood Pressure 155/82 H 08/31/25 04:10 Pulse Oximetry (%) 95 08/31/25 04:10 Oxygen Delivery Method Room Air 08/31/25 04:10 Vital signs reviewed by provider: Yes RME Narrative: 85-year-old female here from long-term with G-tube displacement. But persistent and severe tachycardia noted, ranging from 110 - 150 bpm. And fever noted, axillary temperature 100 ?F. Exam: Persistent and severe tachycardia noted, ranging from 110 - 150 bpm. And fever noted, axillary temperature 100 ?F. Clinical Impression: G-tube displacement Tachycardia Fever
--- NOTE | 2025-08-31 05:16 | EKG_ITS ---
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: : 1940 Requested By: Dani Callaway Order Number: [id number] Reading MD: Dani Callaway Measurements Intervals Gibson Rate: 117 P: SD: QRS: -39 QRSD: 123 T: 86 QT: 366 QTc: 512 Interpretive Statements ATRIAL FIBRILLATION WITH RAPID VENTRICULAR RESPONSE LEFT AXIS DEVIATION [QRS AXIS < -30] RIGHT BUNDLE BRANCH BLOCK [120+ ms QRS DURATION, UPRIGHT V1, 40+ ms S IN I/aVL/V4/V5/V6] MODERATE VOLTAGE CRITERIA FOR LVH, CONSIDER NORMAL VARIANT [MEETS CRITERIA IN ONE OF: R(aVL), S(V1), R(V5), R(V5/V6)+S(V1)] Compared to ECG 08/27/2025 22:12:33 Left-axis deviation now present Left anterior fascicular block no longer present /store/S0/[id number]/[id number].pdf
--- NOTE | 2025-08-31 05:16 | XR_ITS ---
EXAMINATION: Chest single view TECHNIQUE: AP portable semiupright chest single view Date and time: August 31, 2025, 0558 hours, comparison August 25, 2025 INDICATIONS: Shortness of breath today. FINDINGS: Opacity left base consistent with pneumonia Mild to moderate vascular congestion No significant cardiac enlargement Prominent osteopenia IMPRESSION: Left base pneumonia Mild to moderate vascular congestion
[2025-08-31] MEDS: RINGERS LACTATED 1000 ML 1,000 ML IV (05:50)
[2025-08-31 06:06] LABS: Collection Type, Urine Clean Catch
[2025-08-31 06:11] LABS: Lactate (Lactic Acid) 2.2 mMol/L (0.4-2.0)
[2025-08-31 06:12] LABS: Basophils # (Auto) 0.1 Thou/mm3 (0.0-0.2); Basophils % (Auto) 1 % (0-2.5); Eosinophils # (Auto) 0.2 Thou/mm3 (0.0-0.5); Eosinophils % (Auto) 2 % (0-10); Hematocrit 36.1 % (36.0-46.0); Hemoglobin 11.8 g/dL (12.0-16.0); Immature Granulocytes Auto 0.06 Thou/mm3 (0.00-0.00); Lymphocytes # (Auto) 2.9 Thou/mm3 (1.0-4.8); Lymphocytes % (Auto) 29 % (10-50); Mean Corpuscular HGB Conc 32.7 g/dl (31.0-37.0); Mean Corpuscular Hemoglobin 29.6 pg (25.0-35.0); Mean Corpuscular Volume 91 fL (80-100); Monocytes # (Auto) 0.8 Thou/mm3 (0.0-0.8); Monocytes % (Auto) 8 % (0-12); Neutrophils # (Auto) 6.2 Thou/mm3 (1.8-7.7); Neutrophils % (Auto) 61 % (37-80); Nucleated Red Blood Cell # 0.00 Thou/mm3 (0.00-0.00); Nucleated Red Blood Cell % 0 /100 WBC (0); Platelet Count 275 Thou/mm3 (140-440); RDW Standard Deviation 47.5 fL (36.4-46.3); Red Blood Count 3.98 Miln/mm3 (4.00-5.20); White Blood Count 10.1 Thou/mm3 (3.6-11.0)
[2025-08-31 06:20] LABS: Bacteria,Urine Rare; Bilirubin,Urine Negative (Negative); Blood,Urine Negative (Negative); Clarity,Urine Clear (Clear/Hazy); Color,Urine Lt-Yellow (Lt Yel-Yel); Culture Indicated,Urine Yes; Glucose, Urine Negative (Negative); Ketones,Urine Negative (Negative); Leukocyte Esterase,Urine Positive (Negative); Nitrite,Urine Negative (Negative); PH,Urine 8.0 (5.0-7.0); Protein,Urine Negative (Neg - Trace); RBC,Urine 10 /hpf (0-3); Specific Gravity,Urine 1.008 (1.001-1.035); Squamous Epithelial Cell,Urine 1 /hpf (0-5); Urobilinogen,Urine 2.0 mg/dL (0.0-1.0); WBC,Urine 39 /hpf (0-5)
[2025-08-31 06:30] LABS: Sed Rate (ESR) 53 mm/hr (0-30)
[2025-08-31] MEDS: DILTIAZEM INJ 5 MG/ML VIAL 5 ML 15 MG IV (06:31)
--- NOTE | 2025-08-31 06:31 | XR_ITS ---
Examination: Abdomen AP single view Technique: AP portable supine abdomen, single view Exam date and time: 08/31/2025 at 7:18 a.m. COMPARISON STUDY: 08/21/2025 FINDINGS: As best I can tell I do not see any definite abnormalities in the base of the right lung. There could be exceedingly minimal patchy atelectasis at the base of the left lower lobe behind the heart. The bowel gas pattern throughout the abdomen normal. Surgical clips are seen in the gallbladder fossa from previous cholecystectomy That since the last KUB the, a gastrostomy tube has been inserted in the gastric antrum with the inflatable balloon visible by surrounding contrast media which has been injected into the stomach. The contrast flows retrograde and posteriorly into the fundus of the stomach. I do not see any leakage of contrast anywhere. IMPRESSION: 1. Status post recent insertion of gastrostomy feeding tube as outlined above 2. The contrast media extends into the stomach and there is no evidence of any leakage
--- NOTE | 2025-08-31 06:33 | EDNOTE_ITS ---
ED General RME/HPI General Chief complaint: Skin/Abscess/Foreign Body Stated complaint: PULLED OUT PEG TUBE Time Seen by Provider: 08/31/25 04:42 Arrival date/time: 08/31/25 04:05 RME / HPI RME / HPI narrative: 85-year-old [place] [facility] with G-[facility] displacement. But persistent and severe tachycardia noted, ranging from 110 - 150 bpm. And fever noted, axillary temperature 100 ?F. Patient has been here approximately 2 hours prior to my evaluation. Previous physician on attempted to replace the G-tube without success. Patient is undergoing currently a septic workup due to presented in atrial fibrillation with rapid ventricular response and a rectal temperature of 99.9 degrees. Patient is from a assisted facility and was sent in simply for G-tube replacement. Patient is nonverbal secondary to CVA. She is DO NOT RESUSCITATE CODE STATUS. Exam: Persistent and severe tachycardia noted, ranging from 110 - 150 bpm. And fever noted, axillary temperature 100 ?F. Impression: G-tube displacement Tachycardia Fever Related Data Previous Rx's ?Medication ?Instructions ?Recorded apixaban 5 mg tablet 5 mg feeding tube BID 30 day s #60 08/28/25 tabs megestrol 400 mg/10 mL (10 mL) 400 mg (10 mL) feeding tube BID 30 08/28/25 oral suspension days #600 mL metoprolol succinate 50 mg capsule 50 mg feeding tube QDAY 30 days 08/28/25 sprinkle, ext. release 24 hr #30 ea multivitamin (Daily Multi-Vitamin 1 tab feeding tube Q AM 30 days #30 08/28/25 tablet) tabs thiamine mononitrate (vit B1) 100 100 mg G-tube QDAY 3 0 days #30 tabs 08/28/25 mg tablet valproic acid (as sodium salt) 250 85 mg (1.7 mL) feed ing tube TID 08/28/25 mg/5 mL (5 mL) oral solution #500 mL vitamin B complex-vitamin C-folic 1 tab G-tube QDAY 30 days #30 tabs 08/28/25 acid 0.8 mg tablet (Nephro-Naheed) Allergies Allergy/AdvReac Type Severity Reaction Status Date / Time No Known Allergies Allergy Verified 08/21/25 18:01 Review of Systems Review of Systems Systems Reviewed: All systems reviewed, normal except as documented Past Medical History Past Medical History NEUROLOGIC: Positive Dementia CARDIAC: Positive Hypertension ENDOCRINE: Positive Diabetes Mellitus Type 2 PSYCHO/SOCIAL: Positive Schizophrenia and Bipolar Disorder Social History SMOKING STATUS: Unknown if ever smoked ED Exam Narrative Physical exam: Generally patient is alert fidgety nonverbal, heart irregularly irregular rhythm with tachycardic rate, lungs clear to auscultation equal bilaterally, abdomen is soft minimally distended and tympanic with approximately a 1-1/2 cm open wound to the epigastric region of the abdomen most presumably from previous G-tube placement. Neurologic exam shows patient to be moving and grabbing with the left upper extremity with minimal movement to the right side of the body. She is nonverbal. She does not follow commands. Course Quality Measures none Orders Category Date Time Status Bedside COVID-19 Antigen Test NOW Care 08/31/25 05:16 Active Bedside Influenza A&B Antigen Test NOW Care 08/31/25 05:16 Completed EKG (ED ONLY) *Do not use* NOW Care 08/31/25 05:16 Completed Saline [Insert IV] NOW Care 08/31/25 05:16 Active Straight [In and Out Catheter] X1 Care 08/31/25 05:16 Completed EKG (ED Only) Stat Exams 08/31/25 05:16 Draft KUB [XR abdomen 1V] Stat Exams 08/31/25 06:31 Taken XR chest 1V portable Stat Exams 08/31/25 05:16 Completed BNP [B-Type Natriuretic Peptide] Stat Lab 08/31/25 05:50 Completed Bilirubin,Direct Stat Lab 08/31/25 05:50 Completed Blood Culture (Lab) Stat Lab 08/31/25 05:50 Received CBC Stat Lab 08/31/25 05:50 Completed CMP [Comprehensive Metabolic Panel] Stat Lab 08/31/25 05:50 Completed CRP [C-Reactive Protein] Stat Lab 08/31/25 05:50 Completed D-Dimer Stat Lab 08/31/25 05:50 Completed ESR [Sed Rate (ESR)] Stat Lab 08/31/25 05:50 Completed Hemoglobin A1C [Glycohemoglobin w (eAG)] Stat Lab 08/31/25 05:50 Completed Lactate (Lactic Acid) Stat Lab 08/31/25 05:50 Results Lipase Stat Lab 08/31/25 05:50 Completed Magnesium Stat Lab 08/31/25 05:50 Completed Procalcitonin Stat Lab 08/31/25 05:50 Completed TSH [Thyroid Stimulating Hormone] Stat Lab 08/31/25 05:50 Completed Troponin I Stat Lab 08/31/25 05:50 Completed UA, C/S IF [Urinalysis, C/S if Indicated] Stat Lab 08/31/25 06:03 Completed Urine Culture Stat Lab 08/31/25 06:03 Received VBG [Venous Blood Gas] Stat Lab 08/31/25 05:50 Completed DILTIAZEM in NS 100 MG (DO NOT [DILTIAZEM in NS 100 MG] Med 08/31/25 05:41 Discontinued 100 mg in 100 ml IV 5 mg/hr Diltiazem Inj [Cardizem Inj] Med 08/31/25 05:40 Discontinued 15 mg IV X1 ONE Ondansetron Inj [Zofran Inj] Med 08/31/25 05:16 Discontinued 4 mg IVP X1 ONE Ringers Lactated 1000 ml [Lactated Ringers] 1,000 ml Med 08/31/25 05:16 Discontinued IV 1,000 mls/hr Vital Signs Vital signs: Vital Signs Temperature 98.3 F 08/31/25 04:10 Pulse Rate 100 08/31/25 04:10 Respiratory Rate 18 08/31/25 04:10 Blood Pressure 155/82 H 08/31/25 04:10 Pulse Oximetry (%) 95 08/31/25 04:10 Oxygen Delivery Method Room Air 08/31/25 04:10 Pulse ox is 95% on room air which is adequate. Discharge Plan Plan Patient Disposition: Admit Acute Care w/in Hospital Prescriptions/Referrals Prescriptions/Med Rec: No Action apixaban 5 mg tablet 5 mg feeding tube BID 30 Days Qty: 60 0RF Nephro-Naheed 0.8 mg Tablet 1 tab G-tube QDAY 30 Days Qty: 30 0RF thiamine mononitrate (vit B1) 100 mg Tablet 100 mg G-tube QDAY 30 Days Qty: 30 0RF multivitamin [Daily Multi-Vitamin] Tablet 1 tab feeding tube QAM 30 Days Qty: 30 0RF metoprolol succinate 50 mg capsule,sprinkle,ER 24hr 50 mg feeding tube QDAY 30 Days Qty: 30 0RF valproic acid (as sodium salt) 250 mg/5 mL (5 mL) solution 85 mg feeding tube TID Qty: 500 0RF megestrol 400 mg/10 mL (10 mL) suspension 400 mg feeding tube BID 30 Days Qty: 600 0RF Referrals: Nadya Rebollar MD [Primary Care Provider] - In 1 week Problem List Clinical Impression: Gastrostomy tube dysfunction, Atrial fibrillation with rapid ventricular response, Dementia Patient/Caregiver Discharge Instructions Print Language: Tongan Stand Alone Forms: Kristina Award Info., Patient Portal Info Letter MDM Narrative MDM hospital course (for use when minimal MDM required): 0746a: I spoke with GI Dr. Arthur. Discussed patients HPI, ED course, exam findings, and radiology results. He agrees to consult. 0747a: I spoke with hospitalist team C for admission. Discussed patients PMHx, HPI, ED course, exam findings, labs, and radiology results. The hospitalist agree to accept the patient for admission. Patient was originally seen by previous ER physician. Patient was given diltiazem 15 mg IV for atrial fibrillation with rapid ventricular response between 110 and 120. This dose of diltiazem helped bring the heart rate into the 80s and 90s. An attempt to replace the G-tube with a 16 Hungarian Gordon catheter was done here in the emergency room. KUB with Gastrografin injected through the G-tube to confirm placement showed the G-tube not to be in the stomach and the Gastrografin to be in the peritoneal cavity. This is not surprising since the G-tube was only placed 4 days ago. The Gordon catheter G- tube was removed here in the emergency room. I then contacted GI specialist Dr. Arthur who placed the G-tube 4 days ago and he asked for the patient to be admitted so he can replace the G-tube. I did contact the hospitalist and the patient will be admitted to the hospital for further treatment and evaluation. Clinical Information Provided by: patient Medical Records reviewed [facility] Meds/Rx considered, not ordered None Labs/Rad/Tests considered, not ordered None Chronic Illness/Social Conditions which may negatively complicate care or outcome(s)-explain: None or not applicable Labs Labs: interpreted by me (See MDM) Imaging Imaging interpretation: see narrative above Medication Administration(s) Medication Administration History Discontinued Medications Diltiazem HCl (Diltiazem Inj 5 Mg/Ml Vial 5 Ml) 15 mg IV X1 ONE Stop: 08/31/25 05:41 Last Admin: 08/31/25 06:31 Dose: 15 mg Documented By: ELMER Lactated Ringer's (Lactated Ringers) 1,000 mls @ 1,000 mls/hr IV .Q1H ONE Stop: 08/31/25 06:15 Last Infusion: 08/31/25 06:53 Dose: Infused Documented By: Admin: 08/31/25 05:50 Dose: 1,000 mls/hr Documented By: ALBAM Diltiazem/Sodium Chloride (Diltiazem In Ns 100 Mg) 100 mg in 100 mls @ 5 mls/hr IV .Q20H JACKELINE Stop: 09/30/25 05:40 Last Admin: 08/31/25 06:55 Dose: Not Given Documented By: ELMER Non-Admin Reason: Discontinued Ondansetron HCl (Ondansetron Inj 2 Mg/Ml Inj 2 Ml) 4 mg IVP X1 ONE; Protocol Stop: 08/31/25 05:17 Last Admin: 08/31/25 06:13 Dose: Not Given Documented By: ELMER Non-Admin Reason: Change of Condition See above
[2025-08-31 06:46] LABS: Base Excess, Venous 3 (-3-3); O2 Saturation, Venous 94 % (96-97); PCO2, Venous 39 mmHg (36-56); PO2, Venous 65 mmHg (15-58); pH, Venous 7.45 (7.33-7.66)
[2025-08-31 06:48] LABS: Alanine Aminotransferase 8 U/L (10-49); Albumin, Serum 4.0 gm/dL (3.4-4.8); Albumin/Globulin Ratio 1.1 (1.2-2.2); Alkaline Phosphatase 77 U/L (46-116); Anion Gap 10 (7-16); Aspartate Amino Transferase 16 U/L (0-34); BUN/Creatinine Ratio 11 Ratio (12-20); Bilirubin,Direct 0.2 mg/dL (0.0-0.3); Bilirubin,Total 0.6 mg/dL (0.3-1.2); Blood Urea Nitrogen 9 mg/dL (9-23); C-Reactive Protein 5.4 mg/dL (0.0-0.9); Calcium 9.5 mg/dL (8.3-10.6); Calcium (Corrected) 9.5 mg/dL (8.5-10.1); Carbon Dioxide 26.8 mMol/L (20.0-31.0); Chloride 103 mMol/L (98-107); Creatinine (Component) 0.8 mg/dL (0.6-1.3); Estimated Creatinine Clearance 56.3 mL/min (>60); Globulin 3.5 gm/dL (2.3-3.5); Glucose 113 mg/dL (74-106); Lipase 70 U/L (12-53); Magnesium 1.8 mg/dL (1.6-2.6); Osmolality,Calculated 279 (275-295); Potassium 4.3 mMol/L (3.4-5.1); Procalcitonin 0.06 ng/ml (0.0-0.49); Sodium 140 mMol/L (136-145); Thyroid Stimulating Hormone 3.62 uIU/mL (0.55-4.78); Total Protein 7.5 gm/dL (5.7-8.2); Troponin I < 0.020 ng/mL (0.0-0.045); eGFR > 60 See Note
[2025-08-31 06:49] LABS: Glucose Estimated Average 131 mg/dL (80-131); Hemoglobin A1C 6.2 % Hgb (4.8-6.0)
[2025-08-31 07:20] LABS: B-Type Natriuretic Peptide 253 pg/mL (0-100)
[2025-08-31 07:31] LABS: D-Dimer 2690 ng/mL (<600)
[2025-08-31 09:06] LABS: Reflex Lactate? Y
[2025-08-31 10:15] LABS: Lactic Acid, 3 HR 1.1 mMol/L (0.4-2.0)
--- NOTE | 2025-08-31 13:50 | ESHP_ITS ---
<Statement entered by Brock Wallis MD - 08/31/25 17:21> 85-year-old female with a history of dementia (diagnosed in 2023), type 2 diabetes mellitus, afib (on Eliquis), chronic kidney disease, recurrent urinary tract infections who is admitted for PEG tube replacement. She presents from her SNF where she reprotedly pulled out her PEG tube and has been unable to feed or receive medications. At bedside, patient mental status remains unchanged compared to prior admission as she intermittently opens her eyes spontaneously, does not respond to her name but does to sternal rub. Of note, she was previously admitted for acute encephalopathy and found to have multiple, acute embolic infarcts in setting of atrial fibrillation and discharged with PEG tube as she could not perform speech evaluation. GI consulted and informed of need for PEG tube replacement. Once replaced, can restart home medications. ----- Note reviewed and agree with care plan as documented. Please refer to the note below for further details. Plan discussed with attending physician Dr. Santo Wallis MD PGY-2 Internal Medicine Documentation for date of: 08/31/25 HPI History of Present Illness Chief complaint: PEG Tube Displacement History of present illness: 85-year-old female with a history of dementia (diagnosed in 2023), type 2 diabetes mellitus, paroxysmal atrial fibrillation (on Eliquis), chronic kidney disease, bipolar I disorder, borderline personality disorder, and recurrent urinary tract infections presents to the ED at [facility] and was sent in for G-tube replacement. Patient was recently hospitalized at [facility] for ESBL Klebsiella without mentation improvement, was found on MRI to have embolic stroke. Patient not responding to commands, but is moving around spontaneously. ED course: Initial vitals include T98.3, BP 155/82, HR 100, RR 18, O2 sat 95% on room air. Notable labs include Hemoglobin 11.8, D-Dimer 2690, lactic acid 2.2, CRP 5.4, BNP 253, Lipase 70, UA showed LE positive, 10 RBC, 39 WBC CXR: L base PNA EKG showed a-fib with RVR Abd XR showed contrast in stomach, no evidence of leakage Blood and Urine cultures taken In ED, patient was given diltiazem 15 mg IV for atrial fibrillation with rapid ventricular response between 110 and 120. G-tube replacement was attempted and failed. GI Dr. Arthur contacted and will place new G-tube. Past medical history: As stated above. Allergies: NKDA Family history: Noncontributory. Social history: No alcohol use, no smoking, no illicit drug use. Patient admitted for PEG Tube replacement Review of Systems Review of systems otherwise negative except what is mentioned above. Exam Vital Signs Temp Pulse Resp BP Pulse Ox O2 Del Method 99.9 F 97 18 149/92 H 94 L Room Air 08/31/25 06:08 08/31/25 09:37 08/31/25 09:37 08/31/25 09:37 08/31/25 09:37 08/31/25 09:37 Narrative Exam General: No acute distress, resting in bed; Alert, but not responding verbally; not following commands Skin: Upper extremities w/ bruises; Lower extremities dryness HENT: NCAT, EOMI/PERRL, not icteric. External ears normal. No rhinorrhea. Moist mucous membranes Cardiovascular: Regular rate, irregular rhythm, no murmur, +S1/S2. Respiratory: Lungs CTAB GI: Soft, nontender, non-distended. No guarding or rebound tenderness. small abd erythema spot : No suprapubic tenderness. No flank tenderness bilaterally. Extremities: trace edema, no cyanosis, no clubbing. Extremity pulses present. B ilateral feet deformity R>L Neuro: GCS 11; Moving all 4 extremities. CN could not formally tested Psychiatric: Could not be assessed Results: Labs 09/01/25 07:05 08/31/25 05:50 Labs: Short CBC 08/31/25 Range/Units 05:50 WBC 10.1 (3.6-11.0) Thou/mm3 Hgb 11.8 L (12.0-16.0) g/dL Hct 36.1 (36.0-46.0) % Plt Count 275 D (140-440) Thou/mm3 BMP 08/31/25 05:50 Sodium 140 Potassium 4.3 Chloride 103 Carbon Dioxide 26.8 BUN 9 Creatinine 0.8 Glucose 113 H Calcium 9.5 Cardiac Enzymes 08/31/25 Range/Units 05:50 Troponin I < 0.020 (0.0-0.045) ng/mL Liver Function 08/31/25 Range/Units 05:50 Total Bilirubin 0.6 (0.3-1.2) mg/dL Direct Bilirubin 0.2 (0.0-0.3) mg/dL AST 16 (0-34) U/L ALT 8 L (10-49) U/L Alkaline Phosphatase 77 (46-116) U/L Albumin 4.0 (3.4-4.8) gm/dL Urine 08/31/25 Range/Units 06:03 Urine Color Lt-Yellow (Lt Yel-Yel) Urine Clarity Clear (Clear/Hazy) Urine pH 8.0 H (5.0-7.0) Ur Specific [place] 1.008 (1.001-1.035) Urine Protein Negative (Neg - Trace) Urine Glucose (UA) Negative (Negative) ABG Interpretation ABG results: 08/31/25 05:50 VBG pH 7.45 VBG pCO2 39 VBG pO2 65 H VBG Base Excess 3 Quality Measures Quality Measures VTE prophylaxis Advance care planning discussed with:: patient Medications Home Medications and Allergies Home Medications ?Medication ?Instructions ?Recorded ?Confirmed ?Type metoprolol succinate 50 mg capsule 50 mg feeding tube BID 09/01/25 09/01/25 History sprinkle, ext. release 24 hr Allergies Allergy/AdvReac Type Severity Reaction Status Date / Time No Known Allergies Allergy Verified 08/21/25 18:01 Visit Medications Acetaminophen (Acetaminophen 325 Mg Tablet) 650 mg PO Q6H PRN PRN Reason: Fever >101.5 or pain 1-3 Stop: 09/30/25 09:29 Heparin Sodium (Porcine) (Heparin Sod Inj 5000 Unit/Ml Vial) 5,000 unit SC BID JACKELINE Stop: 09/14/25 20:59 Labetalol HCl (Labetalol Inj 5 Mg/Ml Vial 4 Ml) 10 mg IVP Q10MIN PRN PRN Reason: Hypertension Stop: 09/30/25 09:29 Ondansetron HCl (Ondansetron Inj 2 Mg/Ml Inj 2 Ml) 4 mg IVP Q6H PRN; Protocol PRN Reason: NAUSEA OR VOMITING Stop: 09/30/25 09:25 Discontinued Medications Acetaminophen (Acetaminophen 325 Mg Tablet) 650 mg PO Q6H PRN PRN Reason: Fever >101.5 or pain 1-3 Stop: 09/30/25 09:21 Acetaminophen (Acetaminophen 325 Mg Tablet) 650 mg PO Q6H PRN PRN Reason: Pain 1-3 or Fever 100.4 Stop: 09/30/25 09:25 Diltiazem HCl (Diltiazem Inj 5 Mg/Ml Vial 5 Ml) 15 mg IV X1 ONE Stop: 08/31/25 05:41 Last Admin: 08/31/25 06:31 Dose: 15 mg Lactated Ringer's (Lactated Ringers) 1,000 mls @ 1,000 mls/hr IV .Q1H ONE Stop: 08/31/25 06:15 Last Infusion: 08/31/25 06:53 Dose: Infused Diltiazem/Sodium Chloride (Diltiazem In Ns 100 Mg) 100 mg in 100 mls @ 5 mls/hr IV .Q20H JACKELINE Stop: 09/30/25 05:40 Last Admin: 08/31/25 06:55 Dose: Not Given Ondansetron HCl (Ondansetron Inj 2 Mg/Ml Inj 2 Ml) 4 mg IVP X1 ONE; Protocol Stop: 08/31/25 05:17 Last Admin: 08/31/25 06:13 Dose: Not Given Assessment & Plan Plan 85-year-old female with a history of recent embolic CVA, dementia (diagnosed in 2023), type 2 diabetes mellitus, paroxysmal atrial fibrillation (on Eliquis), bipolar I disorder, borderline personality disorder, and recurrent UTIs presents to the ED at [facility] from SNF with need for PEG Tube replacement. #PEG Tube displacement Patient [facility] and was sent in for G-tube replacement. G-tube replacement was attempted and failed in ED. -GI Dr Arthur consulted, will place new G-tube. A-fib, with RVR Primary hypertension [id number]: 3 Rate: Uncontrolled Rhythm: Irregular Home medications: Eliquis 5 mg BID via feeding tube and metoprolol succ 50 mg via feeding tube -Eliquis 5 mg BID - held, on heparin q day -Metroprol succinate XL 50 qday via peg tube -Labetalol 10 mg IV prn for SBP> 180 Non-onsulin dependent Type 2 diabetes mellitus 08/31/25- A1c 6.2. Does not appear to be on any medications Blood sugar 113 on admission -Patient NPO, will follow sugars; plan for PEG placement Hx of recent embolic stroke Functional dysphagia History of dementia 08/26: MRI shows multiple embolic infarcts in the left temporal, left frontal, left occipital, and left parietal lobes. Bipolar 1 disorder Patient takes Depakote salt as 85 mg TID via feeding tube Plan ?Pharmacy helped to find dosage for IV form: Valproate 64 mg IV q6 hr Hx of ESBL Klebsiella UTI Hx of recurrent UTIs Urinalysis showed 39 WBC's, LE pos May just be recovering from UTI from previous hospitalization vs colonization -will follow up urine culture Moderate QTc prolongation EKG on arrival showed QTc 512 ms Patient at risk for life-threatening arrhythmias, particularly torsades de points Plan ? Keep potassium above 4 and magnesium above 2 ? Telemetry ? Avoid QTc prolonging drugs Hospital Management: Disposition: Tele - obs Diet: NPO (PEG) GI Prophylaxis: protonix 40 mg iv qd Bowel Prophylaxis: none DVT Prophylaxis: Heparin CODE STATUS: DNR Patient plan of care was discussed with the attending physician, Dr. Blanchard & senior resident Dr. Arsenio Jessica MD PGY-1 Attending Provider Attestation/Addendum I have examined the patient, reviewed labs and imaging findings, discussed the case with the resident(s), and reviewed entered orders. I agree with the plan of care as outlined in this note, with these additional summaries/recommendations: After examination of the patient and review of the clinical data, I feel that this patient needs admission to the hospital for further treatment and evaluation. Patient is a 85-year-old female with a medical history of embolic CVA which was recent, dementia, diabetes mellitus type 2, paroxysmal atrial fibrillation, CKD, bipolar, recurrent urinary tract infections, dyslipidemia, and primary hypertension presents to [facility] emergency department on 08/31/2025 with chief complaint of G-tube malfunction. Multiple attempts were made in the emergency room to replace PEG tube although were unsuccessful. Gastroenterology was consulted and recommends admission for PEG tube malfunction. Patient unfortunately did develop atrial fibrillation with rapid ventricular response in the emergency room. She has known A-fib. Will continue to treat with IV diltiazem until we can resume oral medicines safely through PEG tube. Please see residents note for additional details and management. Dr. Santo MD
--- NOTE | 2025-08-31 20:00 | PD.IMCONS ---
HPI Data of Consult Requesting Physician: Will Blanchard MD Primary Care Provider: Nadya Rebollar MD Consult Narrative Reason for consult: Patient pulled the gastrostomy tube and the stoma has closed History of present illness: 85 years female last week I placed a gastrostomy tube endoscopically that she accidentally pulled out or intentionally pulled out and the stoma has closed I got a call from the ER physician and the patient was subsequently admitted as the attempt to place a Gordon catheter failed in the emergency room Patient does need gastrostomy tube for nutritional support as well as given the medications through the tube as she has failure to thrive and dysphagia cc:: cc: Will Blanchard MD Review of Systems Review of Systems ROS Unobtainable: unobtainable due to medical condition Meds Home Medications and Allergies Allergies Allergy/AdvReac Type Severity Reaction Status Date / Time No Known Allergies Allergy Verified 08/21/25 18:01 Exam Vital Signs Temp Pulse Resp BP Pulse Ox O2 Del Method 99.9 F 110 H 18 136/107 H 97 Room Air 08/31/25 06:08 08/31/25 14:05 08/31/25 14:05 08/31/25 14:05 08/31/25 14:05 08/31/25 14:05 Routine Respiratory Exam Comments: Normal to auscultation Routine Abdominal Exam Comments: Soft nontender positive bowel sounds Results Labs 08/31/25 05:50 08/31/25 05:50 Labs: Short CBC 08/31/25 Range/Units 05:50 WBC 10.1 (3.6-11.0) Thou/mm3 Hgb 11.8 L (12.0-16.0) g/dL Hct 36.1 (36.0-46.0) % Plt Count 275 D (140-440) Thou/mm3 BMP 08/31/25 05:50 Sodium 140 Potassium 4.3 Chloride 103 Carbon Dioxide 26.8 BUN 9 Creatinine 0.8 Glucose 113 H Calcium 9.5 Cardiac Enzymes 08/31/25 Range/Units 05:50 Troponin I < 0.020 (0.0-0.045) ng/mL Liver Function 08/31/25 Range/Units 05:50 Total Bilirubin 0.6 (0.3-1.2) mg/dL Direct Bilirubin 0.2 (0.0-0.3) mg/dL AST 16 (0-34) U/L ALT 8 L (10-49) U/L Alkaline Phosphatase 77 (46-116) U/L Albumin 4.0 (3.4-4.8) gm/dL Urine 08/31/25 Range/Units 06:03 Urine Color Lt-Yellow (Lt Yel-Yel) Urine Clarity Clear (Clear/Hazy) Urine pH 8.0 H (5.0-7.0) Ur Specific [place] 1.008 (1.001-1.035) Urine Protein Negative (Neg - Trace) Urine Glucose (UA) Negative (Negative) ABG Interpretation ABG results: 08/31/25 05:50 VBG pH 7.45 VBG pCO2 39 VBG pO2 65 H VBG Base Excess 3 Assessment and Plan Additional Assessment & Plan Additional Plan: # Failure to thrive # Patient pulled the PEG tube out and the stoma has closed Plan Consent obtained for placement of percutaneous endoscopic gastrostomy tube placement via fiberoptic esophagogastroduodenoscopy under intravenous moderate sedation Thank you for the opportunity to participate in the care of this patient
[2025-08-31] MEDS: ceFAZolin/D5W 1 GM IVPB 1 GM/50 ML BAG IV (21:25)
[2025-09-01] VITALS (16 sets, daily range): BP systolic 100–159; BP diastolic 58–117; PULSE 70–208; RESP 16–25; TEMP 36.1–36.7; O2SAT 96–100; BMI 29.6; BMI 29.5
[2025-09-01] MEDS: ONDANSETRON INJ 2 MG/ML INJ 2 ML 4 MG IVP (00:46)
--- NOTE | 2025-09-01 01:14 | XR_ITS ---
EXAMINATION: AP chest single view TECHNIQUE: AP portable semiupright chest single view Date and time: September 01, 2025, 0134 hours, comparison August 31, 2025 INDICATIONS: Abnormal sounds on auscultation today FINDINGS: Mild opacity left base retrocardiac obscuring detail left hemidiaphragm The patient's hand overlies the left chest No pulmonary edema Minimal rounding left ventricle Prominent osteopenia IMPRESSION: Mild pneumonia left base
--- NOTE | 2025-09-01 02:19 | EKG_ITS ---
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 : 1940 Requested By: Kenn Muniz Order Number: [id number] Reading MD: Kenn Muniz Measurements Intervals [place] Rate: 145 P: VT: QRS: -50 QRSD: 114 T: 120 QT: 310 QTc: 482 Interpretive Statements ATRIAL FIBRILLATION WITH RAPID VENTRICULAR RESPONSE LOW QRS VOLTAGE IN PRECORDIAL LEADS PATTERN CONSISTENT WITH PULMONARY DISEASE INCOMPLETE RIGHT BUNDLE BRANCH BLOCK LEFT ANTERIOR FASCICULAR BLOCK MODERATE VOLTAGE CRITERIA FOR LVH, CONSIDER NORMAL VARIANT ST DEVIATION AND MODERATE T-WAVE ABNORMALITY, CONSIDER ANTEROLATERAL ISCHEMIA Compared to ECG 08/31/2025 05:24:49 Low QRS voltage now present Incomplete right bundle-branch block now present Left anterior fascicular block now present T-wave abnormality now present Possible ischemia now present Left-axis deviation no longer present Right bundle-branch block no longer present /store/S0/[id number].pdf
[2025-09-01] MEDS: Magnesium Sulfate 2 GM Ivpb 2 GM/50 ML BAG IV (02:43)
[2025-09-01] MEDS: METOCLOPRAMIDE INJ 5 MG/ML VIAL 2 ML IVP (03:04)
--- NOTE | 2025-09-01 03:37 | PRELIM_ITS ---
Radiograph of the chest (single view). September 01, 2025 0129 hours Clinical history: New crackles on auscultation, recent vomit possible aspirati Comparison: No prior study is available for comparison. Findings: The heart, mediastinum and pulmonary renaldo are unremarkable. The lungs are clear. There is no pleural effusion. The bony thorax is unremarkable. Impression: No focal consolidation or pleural effusion. Report Electronically Signed By: Danielle Sofia 09/01/2025 3:37:25 AM [EST]
--- NOTE | 2025-09-01 03:45 | PC.NURSE ---
DR. IBARRA AND DR. CANTOR AT BEDSIDE. INFORMED THAT PT HAS CRACKLES AND BILATERAL EXPIRATORY WHEEZING. ALSO HAD ANOTHER EPISODE OF BILE EMESIS. NEW ORDERS GIVEN. CONCERNED FOR ASPIRATION PNEUMONIA. RT DEEP SUCTIONED X1 TO RIGHT NARE. SCANT AMOUNT OF BILE LIKE OUTPUT SUCTIONED.
--- NOTE | 2025-09-01 03:52 | PC.NURSE ---
Beginning 08/31 2340 pts heart rate began rising to the 140-150 sustaining for a short period of time. Dr oh notified and placed order for x1 2.5mg IV metoprolol. Medication given and patients heart rate began stabilizing. Throughout the night the patient had a spike in heart rate [address] dr oh also ordered the same medication, see mar. The patients heart rate began rising again and patient began vomiting. CXR and EKG were ordered, see results. Based on findings, pt was transferred to telemetry at 0310 for further treatment.
[2025-09-01] MEDS: DILTIAZEM INJ 5 MG/ML VIAL 5 ML 15 MG IV (04:02)
--- NOTE | 2025-09-01 04:25 | PC.NURSE ---
UNSUCCESSFUL NGT PLACEMENT. LEFT NARE RESISTANCE. RIGHT NARE COILED. ATTEMPTED MULTPLE TIMES. DR. COLIN MADE AWARE. LIS VIA Actix FOR NOW.
[2025-09-01] MEDS: LEVALBUTEROL RT 0.31 MG/3 ML NEBU INH (04:27)
[2025-09-01] MEDS: SCOPOLAMINE 1 MG TDSY TOP (04:48)
--- NOTE | 2025-09-01 05:34 | XR_ITS ---
Examination: Abdomen AP single view Technique: AP portable supine abdomen, single view Exam date and time: September 01, 2025, 0549 hours INDICATIONS: Post orogastric tube placement FINDINGS: Orogastric tube in the stomach satisfactory position Gastrostomy tube body the stomach Moderate to large amounts of air and stool throughout the colon No free air Severe osteopenia IMPRESSION: Orogastric tube in the stomach satisfactory position
[2025-09-01] MEDS: ceFAZolin/D5W 1 GM IVPB 1 GM/50 ML BAG IV ×3 (05:57→21:27)
[2025-09-01 07:25] LABS: Basophils # (Auto) 0.1 Thou/mm3 (0.0-0.2); Basophils % (Auto) 0 % (0-2.5); Eosinophils # (Auto) 0.0 Thou/mm3 (0.0-0.5); Eosinophils % (Auto) 0 % (0-10); Hematocrit 37.2 % (36.0-46.0); Hemoglobin 12.4 g/dL (12.0-16.0); Immature Granulocytes Auto 0.08 Thou/mm3 (0.00-0.00); Lymphocytes # (Auto) 1.2 Thou/mm3 (1.0-4.8); Lymphocytes % (Auto) 8 % (10-50); Mean Corpuscular HGB Conc 33.3 g/dl (31.0-37.0); Mean Corpuscular Hemoglobin 30.2 pg (25.0-35.0); Mean Corpuscular Volume 91 fL (80-100); Monocytes # (Auto) 0.6 Thou/mm3 (0.0-0.8); Monocytes % (Auto) 4 % (0-12); Neutrophils # (Auto) 13.3 Thou/mm3 (1.8-7.7); Neutrophils % (Auto) 88 % (37-80); Nucleated Red Blood Cell # 0.00 Thou/mm3 (0.00-0.00); Nucleated Red Blood Cell % 0 /100 WBC (0); Platelet Count 307 Thou/mm3 (140-440); RDW Standard Deviation 47.5 fL (36.4-46.3); Red Blood Count 4.11 Miln/mm3 (4.00-5.20); White Blood Count 15.2 Thou/mm3 (3.6-11.0)
[2025-09-01 07:46] LABS: INR 1.2 (0.9-1.3); Partial Thromboplastin Time 25.2 Seconds (22.0-36.0); Prothrombin Time 12.2 Seconds (9.0-12.2)
[2025-09-01 07:58] LABS: Albumin, Serum 4.1 gm/dL (3.4-4.8); Albumin/Globulin Ratio 1.1 (1.2-2.2); Alkaline Phosphatase 82 U/L (46-116); Anion Gap 14 (7-16); Aspartate Amino Transferase 19 U/L (0-34); BUN/Creatinine Ratio 13 Ratio (12-20); Bilirubin,Total 0.8 mg/dL (0.3-1.2); Blood Urea Nitrogen 10 mg/dL (9-23); Calcium 9.1 mg/dL (8.3-10.6); Calcium (Corrected) 9.1 mg/dL (8.5-10.1); Carbon Dioxide 22.2 mMol/L (20.0-31.0); Chloride 100 mMol/L (98-107); Creatinine (Component) 0.8 mg/dL (0.6-1.3); Estimated Creatinine Clearance 56.9 mL/min (>60); Globulin 3.8 gm/dL (2.3-3.5); Glucose 201 mg/dL (74-106); Magnesium 2.2 mg/dL (1.6-2.6); Osmolality,Calculated 276 (275-295); Phosphorous 4.9 mg/dL (2.4-5.1); Potassium 4.6 mMol/L (3.4-5.1); Sodium 136 mMol/L (136-145); Thyroid Stimulating Hormone 2.71 uIU/mL (0.55-4.78); Total Protein 7.9 gm/dL (5.7-8.2); eGFR > 60 See Note
[2025-09-01 08:02] LABS: Alanine Aminotransferase 7 U/L (10-49)
[2025-09-01] MEDS: HEPARIN SOD INJ 5000 UNIT/ML VIAL SC (08:28)
[2025-09-01] MEDS: METOCLOPRAMIDE INJ 5 MG/ML VIAL 2 ML 10 MG IVP (09:41)
--- NOTE | 2025-09-01 12:24 | ESPR_ITS ---
<Statement entered by Brock Wallis MD - 09/01/25 15:46> Overnight patient noted to have had episodes of emesis and likely an episode of aspiration. CXR showed mild pneumonia in the left base. Afterwards, PEG tube was replaced by GI and the following morning patient continue have episodes of green-colored emesis. Notified GI and will follow-up on recommendations. In early afternoon rapid response was called for A-fib with RVR and was given 20 mg Dilt push and then started on dill drip at 10 mg/h. EKG showed A-fib with RVR and will order troponins, magnesium, BMP. See event note for further details. Cardiology consult placed. Given that she cannot be given her eliquis, will anticoagulate with lovenox 1 mg/kg BID. ----- Note reviewed and agree with care plan as documented. Please refer to the note below for further details. Plan discussed with attending physician Dr. Santo Wallis MD PGY-2 Internal Medicine Documentation for date of: 09/01/25 Subjective Subjective Interval history: Patient overnight reported to have heart rate in the 140s, was given metop tartrate x2 and diltiazem 15 mg x1. Patient noted to be wheezing and having some crackles, was given levalbuterol x1. Patient was vomiting green bile and was reported to have likely aspirated. CXR was taken and appeared unchanged from admission CXR. Patinet also had an NG tube and the PEG tube placed overnight. Patient has abdominal binder on and Left hand mitten on. Later in the day patient had a rapid response called for elevated HR following vomiting (multiple episodes of vomiting today). Patient was given diltiazem 20 mg x1 and put on a dilt drip (refer to note for more details) with improvement in heart rate. Exam Vital Signs Temp Pulse Resp BP Pulse Ox O2 Del Method O2 Flow Rate 97.2 F 103 H 18 146/112 H 96 Nasal Cannula 1 09/01/25 08:00 09/01/25 10:36 09/01/25 10:36 09/01/25 08:00 09/01/25 10:36 09/01/25 08:00 09/01/25 10:36 Narrative Exam General: No acute distress, resting in bed; Occasional eye opening, but not responding verbally; not following commands; Left hand mitten Skin: Upper extremities w/ bruises; Lower extremities dryness HENT: NCAT, EOMI/PERRL, not icteric. External ears normal. No rhinorrhea. Moist mucous membranes Cardiovascular: Regular rate, irregular rhythm, no murmur, +S1/S2. Respiratory: Lungs CTAB GI: NG Tube and PEG tube in place (abdominal binder);Soft, nontender, non- distended. No guarding or rebound tenderness. small abd erythema spot : No suprapubic tenderness. No flank tenderness bilaterally. Extremities: trace edema, no cyanosis, no clubbing. Extremity pulses present. B ilateral feet deformity R>L Neuro: GCS 10; Moving all 4 extremities. CN could not formally tested Psychiatric: Could not be assessed Objective Labs 09/02/25 04:55 09/02/25 04:55 Labs: Laboratory Results - last 24 hr 09/01/25 07:05 WBC 15.2 H D RBC 4.11 Hgb 12.4 Hct 37.2 MCV 91 MCH 30.2 MCHC 33.3 RDW Std Deviation 47.5 H Plt Count 307 D Neut % (Auto) 88 H Lymph % (Auto) 8 L [place] % (Auto) 4 Eos % (Auto) 0 Baso % (Auto) 0 Neut # (Auto) 13.3 H Lymph # (Auto) 1.2 [place] # (Auto) 0.6 Eos # (Auto) 0.0 Baso # (Auto) 0.1 Immature Gran # (Auto) 0.08 H Absolute Nucleated RBC 0.00 Immature Gran % 1 H Nucleated RBC % 0 PT 12.2 INR 1.2 APTT 25.2 Sodium 136 Potassium 4.6 Chloride 100 Carbon Dioxide 22.2 Anion Gap 14 BUN 10 Creatinine 0.8 Estim Creat Clear Calc 56.9 L eGFR > 60 BUN/Creatinine Ratio 13 Glucose 201 H D Calculated Osmolality 276 Calcium 9.1 Corrected Calcium 9.1 Phosphorus 4.9 Magnesium 2.2 Total Bilirubin 0.8 AST 19 ALT 7 L Alkaline Phosphatase 82 Total Protein 7.9 Albumin 4.1 Globulin 3.8 H Albumin/Globulin Ratio 1.1 L TSH 2.71 ABG Interpretation ABG results: 08/31/25 05:50 VBG pH 7.45 VBG pCO2 39 VBG pO2 65 H VBG Base Excess 3 Quality Measures Quality Measures VTE prophylaxis Advance care planning discussed with:: patient and other Assessment & Plan Assessment Current Active Medications: Generic Name Dose Route Start Last Admin Trade Name Freq PRN Reason Stop Dose Admin Acetaminophen 650 mg 08/31/25 09:30 Acetaminophen 325 Mg Tablet PO 09/30/25 09:29 Q6H PRN Fever >101.5 or pain 1-3 Heparin Sodium (Porcine) 5,000 unit 08/31/25 21:00 09/01/25 08:28 Heparin Sod Inj 5000 Unit/Ml Vial SC 09/14/25 20:59 5,000 unit BID JACKELINE Administration Cefazolin Sodium/Dextrose 1 gm in 50 mls @ 100 mls/hr 09/01/25 06:00 09/01/25 05:57 Ancef Ivpb IV 09/08/25 05:59 100 mls/hr Q8HR JACKELINE Administration Valproic Acid 64 mg/ Sodium 50.64 mls @ 55 mls/hr 09/01/25 12:00 Chloride IV 09/30/25 15:29 Q6HR JACKELINE Labetalol HCl 10 mg 08/31/25 09:24 Labetalol Inj 5 Mg/Ml Vial 4 Ml IVP 09/30/25 09:29 Q10MIN PRN Hypertension Metoclopramide HCl 10 mg 09/01/25 09:00 09/01/25 09:41 Metoclopramide Inj 5 Mg/Ml Vial 2 Ml IVP 10/01/25 08:59 10 mg Q6HR PRN Administration NAUSEA OR VOMITING Protocol Pantoprazole Sodium 40 mg 09/01/25 09:00 09/01/25 08:26 Pantoprazole Inj 40 Mg Vial IVP 10/01/25 08:59 40 mg QDAY JACKELINE Administration Plan 85-year-old female with a history of recent embolic CVA, dementia (diagnosed in 2023), type 2 diabetes mellitus, paroxysmal atrial fibrillation (on Eliquis), bipolar I disorder, borderline personality disorder, and recurrent UTIs presents to the ED at [facility] from SNF with need for PEG Tube replacement; PEG tube was placed along with NG tube, patient vomiting multiple times #PEG Tube displacement Patient came from a [facility] facility and was sent in for G-tube replacement. G-tube replacement was attempted and failed in ED. -GI Dr Arthur consulted, new G-tube placed. -Cefazolin 1 gm q8hr added given A-fib, with RVR Primary hypertension [id number]: 3 Rate: Uncontrolled Rhythm: Irregular Home medications: Eliquis 5 mg BID via feeding tube and metoprolol succ 50 mg via feeding tube 09/01: rapid response called for elevated HR following vomiting (multiple episodes of vomiting today). Patient was given diltiazem 20 mg x1 and put on a dilt drip (refer to note for more details) with improvement in heart rate. -Given 20 mg diltiazem, on diltiazem 10 mg/hr drip -Ordered lovenox 80 mg BID qd (1 mg/kg BID) -Metroprol succinate XL 50 qday via peg tube -Labetalol 10 mg IV prn for SBP> 180 Non-onsulin dependent Type 2 diabetes mellitus 08/31/25- A1c 6.2. Does not appear to be on any medications Blood sugar 113 on admission -Patient NPO, will follow sugars; s/p peg placement Hx of recent embolic stroke Functional dysphagia History of dementia 08/26: MRI shows multiple embolic infarcts in the left temporal, left frontal, left occipital, and left parietal lobes. Bipolar 1 disorder Patient takes Depakote salt as 85 mg TID via feeding tube Plan ?Pharmacy helped to find dosage for IV form: Valproate 64 mg IV q6 hr Hx of ESBL Klebsiella UTI Hx of recurrent UTIs Urinalysis showed 39 WBC's, LE pos May just be recovering from UTI from previous hospitalization vs colonization -will follow up urine culture Moderate QTc prolongation EKG on arrival showed QTc 512 ms Patient at risk for life-threatening arrhythmias, particularly torsades de points Plan ? Keep potassium above 4 and magnesium above 2 ? Telemetry ? Avoid QTc prolonging drugs Hospital Management: Disposition: Tele - obs Diet: NPO (vomiting) s/p new PEG placement GI Prophylaxis: protonix 40 mg iv qd Bowel Prophylaxis: none DVT Prophylaxis: Lovenox 80 mg qday CODE STATUS: DNR Patient plan of care was discussed with the attending physician, Dr. Blanchard & senior resident Dr. Arsenio Jessica MD PGY-1 Attending Provider Attestation/Addendum I have examined the patient, reviewed labs and imaging findings, discussed the case with the resident(s), and reviewed entered orders. I agree with the plan of care as outlined in this note, with these additional summaries/recommendations: Patient seen at bedside. Overnight patient had multiple episodes of RVR requiring pushes of diltiazem and metoprolol. This morning patient's heart rate remains less than 110 although is borderline. Etiology for RVR likely secondary to patient's medications being held secondary to G-tube malfunction. Patient had G-tube replaced yesterday with with gastroenterology and NG tube placed as well. Continue abdominal binder. Patient still vomiting and will start antiemetics/prokinetic agents. Abdominal x-ray did reveal moderate to large amounts of air and stool throughout the colon and started on bowel regimen. Once more improved we will attempt to resume free water flushes and tube feeds. Continue insulin sliding scale for diabetes mellitus type 2 with Accu-Cheks. Target blood sugar of 140-180 while hospitalized. Continue Eliquis for atrial fibrillation. Continue valproic acid for mood stabilizer. Please see residents note for additional details and management. Dr. Santo MD
--- NOTE | 2025-09-01 12:51 | PC.DIETICIAN ---
Nutrition prescription When indicated, consider: Glucerna 1.2 at 20 ml/hr via NG/PEG tube by pump. Advance 10 ml every 8 hrs to goal rate of 55 ml/hr x 24 hrs. If no IV fluids, water flushes of 25 ml/hr (or per MD). Provides: 1584 kcal, 79 g prot, 1062 ml free water, 1320 ml total volume.
--- NOTE | 2025-09-01 14:33 | XR_ITS ---
AP portable semiupright chest film on 09/01/2025 at 3:16 p.m.: Comparison study performed earlier on the same date at 1:34 a.m. INDICATION: Tachycardia FINDINGS: Again noted is moderate definite cardiomegaly and mild tortuosity of the thoracic aorta. The right lung and pleural space are clear normal. On the left I believe that there is minimal consolidation at the base of the left lower lobe behind the heart, this obscures the left hemidiaphragm. Since the previous film a nasogastric catheter has been inserted, and extends down at least into the mid stomach in good position. IMPRESSION: 1. Nasogastric catheter is in good position. 2. Since the earlier film today I believe the patient has developed a small definite zone of infiltrate in the posterior base of the left lower lobe. 3. Moderate cardiomegaly
--- NOTE | 2025-09-01 14:33 | EKG_ITS ---
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 : 1940 Requested By: Anay Leonard Order Number: [id number] Reading MD: Anay Leonard Measurements Intervals [place] Rate: 133 P: MS: QRS: -58 QRSD: 135 T: 71 QT: 340 QTc: 507 Interpretive Statements ATRIAL FIBRILLATION WITH RAPID VENTRICULAR RESPONSE RIGHT BUNDLE BRANCH BLOCK LEFT ANTERIOR FASCICULAR BLOCK MODERATE VOLTAGE CRITERIA FOR LVH, CONSIDER NORMAL VARIANT Compared to ECG 09/01/2025 02:33:53 Right bundle-branch block now present Incomplete right bundle-branch block no longer present T-wave abnormality no longer present Possible ischemia no longer present /store/S0/[id number].pdf
--- NOTE | 2025-09-01 14:36 | PC.SS ---
Rounding Note: G-Tube has been changed. Patient continues to vomit. Dr. Arthur recommendations pending.
[2025-09-01] MEDS: DILTIAZEM INJ 5 MG/ML VIAL 5 ML 20 MG IV (14:49)
[2025-09-01] MEDS: DILTIAZEM in D5W 125 MG 125 MG/125 ML BAG 10 MG IV (14:59)
--- NOTE | 2025-09-01 15:00 | PC.SS ---
WEIR FISHER attempted phone contact with the patient?s sister, Sia Noel ; to conduct initial assessment and to discuss discharge plan. WEIR FISHER left message requesting return call.
--- NOTE | 2025-09-01 15:02 | PD.RESEVENT ---
Documentation for date of: 09/01/25 Event Note Event Note: At around 14:25, a rapid response was called for heart rate elevated to low 200s right before another episode of vomiting right before the rapid was called (multiple episodes today). Patient's bp was taken and was found to be 112/77 with repeat of 102/73. EKG was ordered and showed afib with rvr. Patient was given diltiazem 20 mg x1 and diltiazem drip 10 mg/hr was ordered. Patient's heart rate improved to 110s/120s. CXR, BMP, Mag, trops, vbg were ordered as well. Patient resting in bed, saturating well throughout this event. Patient plan of care was discussed with the attending physician, Dr. Blanchard & senior resident Dr. Bimal Jessica MD PGY-1
--- NOTE | 2025-09-01 15:05 | PC.SS ---
Updated clinicals submitted to [facility].
--- NOTE | 2025-09-01 15:22 | ESCONSULT_ITS ---
RE: LU MADERA : 1940 DATE OF CONSULTATION: 09/01/2025 CONSULTING PHYSICIAN: Dr Will Blanchard. REASON FOR CONSULTATION: Evaluation of atrial fibrillation with rapid ventricular response. CHIEF COMPLAINT: Weakness. HISTORY OF PRESENT ILLNESS: Patient is a 85 year old female who I saw her about a week ago admitted to the hospital with multiple embolic stroke due to AFib RVR, atrial fibrillation, high CHADS-VASc score and subtherapeutic Eliquis dosage. Doing fairly well, was sent back to group home and came back because she accidentally pulled gastrostomy tube. Did not get her medications. She normally does have metoprolol 50 mg b.i.d. for rate control and apixaban 5 b.i.d. Unable to get her medications and she is now had AFib with rapid rates 140-150 beats per minute. The patient still have AFib RVR. She does not offer much history but history is obtained from the previous record. She is known to have longstanding history of hypertension, chronic atrial fibrillation and also multiple embolic strokes from recent hospitalization while she was on 2.5 mg dose of Eliquis. She did have an echo recently that showed normal ejection fraction. ALLERGIES: NONE. MEDICATIONS: Patient has been on metoprolol 50 mg b.i.d. and Eliquis 5 mg b.i.d. for AFib and anticoagulation. The patient is still having AFib with RVR. PHYSICAL EXAMINATION: VITAL SIGNS: Initially blood pressure was high but currently at 110/60. Patient's heart rate is 140. Respirations 18 per minute on nasal cannula. HEENT: Head is atraumatic. NECK: Supple. LUNGS: Decreased breath sounds. HEART: S1 S2 irregular. ABDOMEN: Distended and soft. There is a stoma of gastrostomy tube that is removed. EXTREMITIES: No edema. NEUROLOGIC: Patient is somewhat lethargic. Detailed exam is not performed. She did have multiple strokes recently. LAB DATA: Patient's hemoglobin is 11.5. White count normal. Sodium and potassium normal. Creatinine is also normal. BUN is normal. ASSESSMENT: 1. Atrial fibrillation with rapid ventricular response due to not having her oral medications. 2. Known to have chronic atrial fibrillation. 3. History of multiple embolic stroke requiring recent hospitalization for altered mental status. 4. Mild leukocytosis. RECOMMENDATION: We will recommend diltiazem 20 mg IV followed by 10 mg per hour. Once the patient is able to take medications orally or by G-tube, switch it to beta-jess 50 mg metoprolol twice daily again for rate control. Recommend continuing Eliquis 5 mg twice daily if she can be given by the G-tube or NG tube, otherwise should anticoagulate her with Lovenox 1 mg per kilogram b.i.d. We would like to thank you for this patient for cardiovascular evaluation. We will be glad to monitor the patient closely. DT: 15:09:05 TT: 15:21:00 Ref: [id number] - TID: [id number]
[2025-09-01 15:33] LABS: Base Excess, Venous 3 (-3-3); O2 Saturation, Venous 99 % (96-97); PCO2, Venous 31 mmHg (36-56); PO2, Venous 94 mmHg (15-58); pH, Venous 7.52 (7.33-7.66)
[2025-09-01 16:08] LABS: Anion Gap 11 (7-16); BUN/Creatinine Ratio 14 Ratio (12-20); Blood Urea Nitrogen 11 mg/dL (9-23); Calcium 8.7 mg/dL (8.3-10.6); Carbon Dioxide 24.1 mMol/L (20.0-31.0); Chloride 101 mMol/L (98-107); Creatinine (Component) 0.8 mg/dL (0.6-1.3); Estimated Creatinine Clearance 56.9 mL/min (>60); Glucose 164 mg/dL (74-106); Magnesium 1.8 mg/dL (1.6-2.6); Osmolality,Calculated 275 (275-295); Potassium 4.3 mMol/L (3.4-5.1); Sodium 136 mMol/L (136-145); Troponin I < 0.020 ng/mL (0.0-0.045); eGFR > 60 See Note
--- NOTE | 2025-09-01 17:30 | PD.IMPROG ---
Documentation for date of: 09/01/25 Subjective Subjective Interval history: Continues to have nausea vomiting after placement of a new gastrostomy tube The previous gastrostomy site is indurated and infected with some purulent drainage so that is the reason I did not use that site for placement of the gastrostomy tube And started the patient on Ancef 1 g IV piggyback Q8 A rapid was called in after patient had nausea vomiting was found to be in atrial fibrillation with RVR Exam Vital Signs Temp Pulse Resp BP Pulse Ox O2 Del Method O2 Flow Rate 97.2 F 95 18 104/66 96 Nasal Cannula 1 09/01/25 16:00 09/01/25 16:00 09/01/25 16:00 09/01/25 16:00 09/01/25 16:00 09/01/25 16:00 09/01/25 16:00 Objective Labs 09/01/25 07:05 09/01/25 14:59 Labs: Laboratory Results - last 24 hr 09/01/25 09/01/25 07:05 14:59 WBC 15.2 H D RBC 4.11 Hgb 12.4 Hct 37.2 MCV 91 MCH 30.2 MCHC 33.3 RDW Std Deviation 47.5 H Plt Count 307 D Neut % (Auto) 88 H Lymph % (Auto) 8 L [place] % (Auto) 4 Eos % (Auto) 0 Baso % (Auto) 0 Neut # (Auto) 13.3 H Lymph # (Auto) 1.2 [place] # (Auto) 0.6 Eos # (Auto) 0.0 Baso # (Auto) 0.1 Immature Gran # (Auto) 0.08 H Absolute Nucleated RBC 0.00 Immature Gran % 1 H Nucleated RBC % 0 PT 12.2 INR 1.2 APTT 25.2 VBG pH 7.52 VBG pCO2 31 L VBG pO2 94 H D VBG O2 Sat (Viktoria) 99 H VBG Base Excess 3 Sodium 136 136 Potassium 4.6 4.3 Chloride 100 101 Carbon Dioxide 22.2 24.1 Anion Gap 14 11 BUN 10 11 Creatinine 0.8 0.8 Estim Creat Clear Calc 56.9 L 56.9 L eGFR > 60 > 60 BUN/Creatinine Ratio 13 14 Glucose 201 H D 164 H Calculated Osmolality 276 275 Calcium 9.1 8.7 Corrected Calcium 9.1 Phosphorus 4.9 Magnesium 2.2 1.8 Total Bilirubin 0.8 AST 19 ALT 7 L Alkaline Phosphatase 82 Troponin I < 0.020 Total Protein 7.9 Albumin 4.1 Globulin 3.8 H Albumin/Globulin Ratio 1.1 L TSH 2.71 Impressions Impression: Status post placement of a new gastrostomy tube at a different site Infected previous site of the gastrostomy with induration continue Ancef and dressing changes ABG Interpretation ABG results: 08/31/25 09/01/25 05:50 14:59 VBG pH 7.45 7.52 VBG pCO2 39 31 L VBG pO2 65 H 94 H D VBG Base Excess 3 3 Assessment & Plan A&P Narrative # Failure to thrive # Patient pulled the PEG tube out and the stoma has closed Plan Consent obtained for placement of percutaneous endoscopic gastrostomy tube placement via fiberoptic esophagogastroduodenoscopy under intravenous moderate sedation Thank you for the opportunity to participate in the care of this patient Time Spent With Patient Time: Total time spent is greater than 50% in coordination of care (as documented) at patient's floor/unit and/or counseling patient:
[2025-09-01] MEDS: DEXTROSE 5%-WATER 1,000 ML 85 ML IV (18:04)
[2025-09-01] MEDS: ENOXAPARIN SOD INJ 80 MG/0.8 ML SYRINGE SC (21:28)
[2025-09-02] VITALS (11 sets, daily range): BP systolic 99–119; BP diastolic 55–84; PULSE 59–109; RESP 12–97; TEMP 36–36.7; O2SAT 96–98; BMI 28.7
[2025-09-02] MEDS: DILTIAZEM in D5W 125 MG 125 MG/125 ML BAG 10 MG IV (02:51)
[2025-09-02] MEDS: ceFAZolin/D5W 1 GM IVPB 1 GM/50 ML BAG IV ×3 (05:13→21:28)
[2025-09-02] MEDS: DEXTROSE 5%-WATER 1,000 ML 85 ML IV (05:18)
[2025-09-02 05:50] LABS: Basophils # (Auto) 0.0 Thou/mm3 (0.0-0.2); Basophils % (Auto) 0 % (0-2.5); Eosinophils # (Auto) 0.2 Thou/mm3 (0.0-0.5); Eosinophils % (Auto) 2 % (0-10); Hematocrit 30.5 % (36.0-46.0); Hemoglobin 10.1 g/dL (12.0-16.0); Immature Granulocytes Auto 0.08 Thou/mm3 (0.00-0.00); Lymphocytes # (Auto) 2.3 Thou/mm3 (1.0-4.8); Lymphocytes % (Auto) 22 % (10-50); Mean Corpuscular HGB Conc 33.1 g/dl (31.0-37.0); Mean Corpuscular Hemoglobin 30.1 pg (25.0-35.0); Mean Corpuscular Volume 91 fL (80-100); Monocytes # (Auto) 1.0 Thou/mm3 (0.0-0.8); Monocytes % (Auto) 9 % (0-12); Neutrophils # (Auto) 7.0 Thou/mm3 (1.8-7.7); Neutrophils % (Auto) 66 % (37-80); Nucleated Red Blood Cell # 0.00 Thou/mm3 (0.00-0.00); Nucleated Red Blood Cell % 0 /100 WBC (0); Platelet Count 277 Thou/mm3 (140-440); RDW Standard Deviation 46.8 fL (36.4-46.3); Red Blood Count 3.36 Miln/mm3 (4.00-5.20); White Blood Count 10.6 Thou/mm3 (3.6-11.0)
[2025-09-02 06:14] LABS: INR 1.4 (0.9-1.3); Prothrombin Time 14.2 Seconds (9.0-12.2)
[2025-09-02 06:26] LABS: Alanine Aminotransferase < 7 U/L (10-49); Albumin, Serum 3.6 gm/dL (3.4-4.8); Albumin/Globulin Ratio 1.1 (1.2-2.2); Alkaline Phosphatase 66 U/L (46-116); Anion Gap 11 (7-16); Aspartate Amino Transferase 15 U/L (0-34); BUN/Creatinine Ratio 14 Ratio (12-20); Bilirubin,Total 0.6 mg/dL (0.3-1.2); Blood Urea Nitrogen 13 mg/dL (9-23); Calcium 8.5 mg/dL (8.3-10.6); Calcium (Corrected) 8.8 mg/dL (8.5-10.1); Carbon Dioxide 25.9 mMol/L (20.0-31.0); Chloride 99 mMol/L (98-107); Creatinine (Component) 0.9 mg/dL (0.6-1.3); Estimated Creatinine Clearance 50.0 mL/min (>60); Globulin 3.4 gm/dL (2.3-3.5); Glucose 135 mg/dL (74-106); Magnesium 2.0 mg/dL (1.6-2.6); Osmolality,Calculated 274 (275-295); Phosphorous 3.1 mg/dL (2.4-5.1); Potassium 3.6 mMol/L (3.4-5.1); Sodium 136 mMol/L (136-145); Total Protein 7.0 gm/dL (5.7-8.2); eGFR > 60 See Note
[2025-09-02] MEDS: ENOXAPARIN SOD INJ 80 MG/0.8 ML SYRINGE SC (09:35)
--- NOTE | 2025-09-02 11:55 | ESPR_ITS ---
Documentation for date of: 09/02/25 Subjective - Hospitalist Subjective Interval history: Patient seen at bedside. No acute overnight events. Patient is nonverbal and no history can be obtained. Intractable nausea and vomiting appears to have resolved for now. Continue antiemetics. Patient remained on diltiazem gtt. overnight and still in atrial fibrillation although now rate controlled. Afebrile. BP 107/84. Pulse 68. RR 17. O2 sat 96% on 1 L nasal cannula. 1 of 2 blood cultures preliminarily showing GPC. Review of Systems Review of Systems ROS Unobtainable: unobtainable due to mental status and unobtainable due to medical condition Exam Vital Signs Temp Pulse Resp BP Pulse Ox O2 Del Method O2 Flow Rate 97.8 F 68 17 107/84 96 Nasal Cannula 1 09/02/25 08:00 09/02/25 08:00 09/02/25 08:00 09/02/25 08:00 09/02/25 08:00 09/02/25 08:00 09/02/25 08:00 FiO2 98 09/02/25 04:00 Narrative General: Eyes closed, nonverbal, no acute distress HENT: NCAT, EOMI/PERRL, No rhinorrhea. Moist mucous membranes Cardiovascular: Regular rate, irregular rhythm, no murmur, +S1/S2. Respiratory: Lungs CTAB GI: NG Tube and PEG tube in place (abdominal binder);Soft, nontender, non- distended. No guarding or rebound tenderness. small area of erythema at PEG tube site : No suprapubic tenderness. No flank tenderness bilaterally. Extremities: trace edema, no cyanosis, no clubbing. Extremity pulses present. Bilateral feet deformity R>L Skin: Upper extremities w/ bruises; Lower extremities dryness Neuro: GCS 10; Moving all 4 extremities. CN could not formally tested Psychiatric: Could not be assessed Objective - Hospitalist Labs Diagram: 09/02/25 04:55 09/02/25 04:55 Labs: Laboratory Results - last 24 hr 09/01/25 09/02/25 14:59 04:55 WBC 10.6 RBC 3.36 L Hgb 10.1 L D Hct 30.5 L MCV 91 MCH 30.1 MCHC 33.1 RDW Std Deviation 46.8 H Plt Count 277 D Neut % (Auto) 66 Lymph % (Auto) 22 [place] % (Auto) 9 Eos % (Auto) 2 Baso % (Auto) 0 Neut # (Auto) 7.0 Lymph # (Auto) 2.3 [place] # (Auto) 1.0 H Eos # (Auto) 0.2 Baso # (Auto) 0.0 Immature Gran # (Auto) 0.08 H Absolute Nucleated RBC 0.00 Immature Gran % 1 H Nucleated RBC % 0 PT 14.2 H INR 1.4 H VBG pH 7.52 VBG pCO2 31 L VBG pO2 94 H D VBG O2 Sat (Viktoria) 99 H VBG Base Excess 3 Sodium 136 136 Potassium 4.3 3.6 D Chloride 101 99 Carbon Dioxide 24.1 25.9 Anion Gap 11 11 BUN 11 13 Creatinine 0.8 0.9 Estim Creat Clear Calc 56.9 L 50.0 L eGFR > 60 > 60 BUN/Creatinine Ratio 14 14 Glucose 164 H 135 H Calculated Osmolality 275 274 L Calcium 8.7 8.5 Corrected Calcium 8.8 Phosphorus 3.1 Magnesium 1.8 2.0 Total Bilirubin 0.6 AST 15 ALT < 7 L Alkaline Phosphatase 66 Troponin I < 0.020 Total Protein 7.0 Albumin 3.6 D Globulin 3.4 Albumin/Globulin Ratio 1.1 L ABG Interpretation ABG results: 08/31/25 09/01/25 05:50 14:59 VBG pH 7.45 7.52 VBG pCO2 39 31 L VBG pO2 65 H 94 H D VBG Base Excess 3 3 Assessment & Plan Plan: Patient is a 85-year-old female with a history of recent embolic CVA, dementia (diagnosed in 2023), type 2 diabetes mellitus, paroxysmal atrial fibrillation (on Eliquis), bipolar I disorder, borderline personality disorder, and recurrent UTIs presents to the ED at [facility] from SNF with need for PEG Tube replacement; PEG tube was placed along with NG tube, patient vomiting multiple times #PEG Tube malfunction #PEG Tube Site Cellulitis #?Bacteremia # Intractable nausea/vomiting Patient came from a longterm facility and was sent in for G-tube replacement as patient pulled out PEG tube. Multiple attempts were made to replace PEG tube in ED although unsuccessful. Gastroenterology following, recommendations appreciated -Plan: Continue IV cefazolin 1 gm q8hr for cellulitis. Remove NG tube. Status post new PEG tube and consult dietary to start tube feeds and free water flushes. Nausea/vomiting appears to have resolved and limited antiemetics given patient has prolonged QTc. Scopolamine as needed. Blood cultures preliminarily showing 1 out of 2 GPC although high suspicion for contamination. Given that patient appears to be clinically improving and leukocytosis now resolved, I will defer MRSA coverage for now and follow-up final speciation of blood culture results. Continue to wear abdominal binder at all times and PEG tube site to be clean twice daily. #Chronic atrial fibrillation with RVR #Primary hypertension Etiology for RVR like nausea/vomiting versus holding meds on admission for PEG tube placement [id number]: 3 Home medications: Eliquis 5 mg BID via feeding tube and metoprolol succ 50 mg via feeding tube - Plan: Patient now rate controlled. Heart rate trending in the 60s. DC diltiazem gtt. and therapeutic Lovenox. Patient started Toprol all succinate gtt. twice daily and Eliquis. Continue to monitor on telemetry. #Non-insulin dependent Type 2 diabetes mellitus 08/31/25- A1c 6.2. -Plan: Well-controlled. Continue insulin sliding scale with Accu-Cheks. Target blood sugar 140-180 while hospitalized. #Hx of recent embolic stroke #History of dementia 08/26: MRI shows multiple embolic infarcts in the left temporal, left frontal, left occipital, and left parietal lobes. - PLan: Continue home Eliquis. Outpatient follow-up with neurology. #Bipolar 1 disorder - Plan: Stable, Continue Valproate 64 mg IV q6 hr #Moderate QTc prolongation EKG on arrival showed QTc 512 ms Patient at risk for life-threatening arrhythmias, particularly torsades de points Plan ? Keep potassium above 4 and magnesium above 2 ? Telemetry ? Avoid QTc prolonging drugs Disposition: Telemetry for PEG tube malfunction and cellulitis with hospital course complicated by atrial fibrillation with RVR. Diet: NPO (vomiting) s/p new PEG placement GI Prophylaxis: protonix 40 mg iv qd Bowel Prophylaxis: none DVT Prophylaxis: Eliquis CODE STATUS: DNR Dr. Santo MD Time Spent with Patient Time: Total time spent is greater than 50% in coordination of care (as documented) at patient's floor/unit and/or counseling patient: Time with patient: 25 - 35 minutes Reason for Continued Stay Reason for continued stay: further monitoring, IV antibiotics and vomiting: IV antiemetics Quality Measures Quality Measures VTE prophylaxis Advance care planning discussed with:: spouse
--- NOTE | 2025-09-02 13:27 | PC.NURSE ---
Tried to remove patient's mitten now that NG tube is removed. Patient immediately began pulling at lines and pulling going up to pull on peg tube. Reapplied mitten restraints for now. Will continue to reassess.
--- NOTE | 2025-09-02 16:56 | ESPR_ITS ---
Documentation for date of: 09/02/25 Subjective Subjective Interval history: Newly placed gastrostomy tubes working well Less induration at the previous gastrostomy site One of the 2 bottles is positive for GPC White count is coming down from 15.6-10.6 In atrial fibrillation on Cardizem Exam Vital Signs Temp Pulse Resp BP Pulse Ox O2 Del Method O2 Flow Rate 97.2 F 66 19 99/55 L 96 Nasal Cannula 1 09/02/25 12:00 09/02/25 12:00 09/02/25 12:00 09/02/25 12:00 09/02/25 12:00 09/02/25 12:00 09/02/25 12:00 FiO2 98 09/02/25 04:00 Objective Labs 09/02/25 04:55 09/02/25 04:55 Labs: Laboratory Results - last 24 hr 09/02/25 04:55 WBC 10.6 RBC 3.36 L Hgb 10.1 L D Hct 30.5 L MCV 91 MCH 30.1 MCHC 33.1 RDW Std Deviation 46.8 H Plt Count 277 D Neut % (Auto) 66 Lymph % (Auto) 22 [place] % (Auto) 9 Eos % (Auto) 2 Baso % (Auto) 0 Neut # (Auto) 7.0 Lymph # (Auto) 2.3 [place] # (Auto) 1.0 H Eos # (Auto) 0.2 Baso # (Auto) 0.0 Immature Gran # (Auto) 0.08 H Absolute Nucleated RBC 0.00 Immature Gran % 1 H Nucleated RBC % 0 PT 14.2 H INR 1.4 H Sodium 136 Potassium 3.6 D Chloride 99 Carbon Dioxide 25.9 Anion Gap 11 BUN 13 Creatinine 0.9 Estim Creat Clear Calc 50.0 L eGFR > 60 BUN/Creatinine Ratio 14 Glucose 135 H Calculated Osmolality 274 L Calcium 8.5 Corrected Calcium 8.8 Phosphorus 3.1 Magnesium 2.0 Total Bilirubin 0.6 AST 15 ALT < 7 L Alkaline Phosphatase 66 Total Protein 7.0 Albumin 3.6 D Globulin 3.4 Albumin/Globulin Ratio 1.1 L Impressions Impression: Status postplacement of a new gastrostomy tube Improving leukocytosis Improved nausea vomiting Continue current management ABG Interpretation ABG results: 08/31/25 09/01/25 05:50 14:59 VBG pH 7.45 7.52 VBG pCO2 39 31 L VBG pO2 65 H 94 H D VBG Base Excess 3 3 Assessment & Plan A&P Narrative # Failure to thrive # Patient pulled the PEG tube out and the stoma has closed Plan Consent obtained for placement of percutaneous endoscopic gastrostomy tube placement via fiberoptic esophagogastroduodenoscopy under intravenous moderate sedation Thank you for the opportunity to participate in the care of this patient Time Spent With Patient Time: Total time spent is greater than 50% in coordination of care (as documented) at patient's floor/unit and/or counseling patient:
[2025-09-02] MEDS: METOPROLOL SUCCINATE XL 25 MG TABCR 50 MG GT (20:43)
[2025-09-02] MEDS: APIXABAN 2.5 MG TABLET 5 MG GT (20:44)
[2025-09-03] VITALS (9 sets, daily range): BP systolic 104–170; BP diastolic 63–118; PULSE 66–120; RESP 18–98; TEMP 36.7–37.2; O2SAT 94–99; BMI 29.0
--- NOTE | 2025-09-03 01:24 | ESPR_ITS ---
RE: LU CLEMONS : 1940 DATE OF SERVICE: 09/02/2025 Lu Clemons is an 86-year-old lady with history of multiple embolic strokes, atrial fibrillation and G-tube placement. G-tube was apparently removed accidentally, came to the hospital with AFib with RVR, now rate controlled well, not having any shortness of breath or chest pain. She has got G-tube placed still and she is continued metoprolol 50 mg now by G-tube. Rate controlled well, heart rate is about 70, not complaining of shortness of breath or chest pain. Now, Blood pressure shows 112/62, pulse rate is 90, respirations 28, temperature normal. Oxygen saturation is excellent. Neck: Supple. No JVD. Lungs: Decreased breath sounds, no rales . Heart: S1 S2 regular. No murmurs gallop. Abdomen: Thin and soft. Extremities: Mild edema. and rectal: Not performed. IMPRESSION: 1. Atrial fibrillation, rate controlled. 2. History of multiple embolic stroke, high CHADS-VASc score on Eliquis. 3. Status post G-tube placement. RECOMMENDATIONS: 1. Continue metoprolol 50 mg b.i.d. for rate control. 2. Eliquis 5 mg b.i.d. for anticoagulation. 3. Monitor the patient for any tachycardia. 4. Use IV diltiazem to control the heart rate. DT: 00:19:06 TT: 01:22:00 Ref: [id number] - TID: [id number]
[2025-09-03] MEDS: ceFAZolin/D5W 1 GM IVPB 1 GM/50 ML BAG IV ×3 (05:14→21:01)
[2025-09-03] MEDS: METOCLOPRAMIDE INJ 5 MG/ML VIAL 2 ML 10 MG IVP (06:16)
[2025-09-03 08:42] LABS: Basophils # (Auto) 0.1 Thou/mm3 (0.0-0.2); Basophils % (Auto) 0 % (0-2.5); Eosinophils # (Auto) 0.3 Thou/mm3 (0.0-0.5); Eosinophils % (Auto) 2 % (0-10); Hematocrit 33.2 % (36.0-46.0); Hemoglobin 10.9 g/dL (12.0-16.0); Immature Granulocytes Auto 0.07 Thou/mm3 (0.00-0.00); Lymphocytes # (Auto) 1.5 Thou/mm3 (1.0-4.8); Lymphocytes % (Auto) 13 % (10-50); Mean Corpuscular HGB Conc 32.8 g/dl (31.0-37.0); Mean Corpuscular Hemoglobin 29.8 pg (25.0-35.0); Mean Corpuscular Volume 91 fL (80-100); Monocytes # (Auto) 1.0 Thou/mm3 (0.0-0.8); Monocytes % (Auto) 9 % (0-12); Neutrophils # (Auto) 8.4 Thou/mm3 (1.8-7.7); Neutrophils % (Auto) 75 % (37-80); Nucleated Red Blood Cell # 0.00 Thou/mm3 (0.00-0.00); Nucleated Red Blood Cell % 0 /100 WBC (0); Platelet Count 332 Thou/mm3 (140-440); RDW Standard Deviation 48.2 fL (36.4-46.3); Red Blood Count 3.66 Miln/mm3 (4.00-5.20); White Blood Count 11.2 Thou/mm3 (3.6-11.0)
[2025-09-03] MEDS: APIXABAN 2.5 MG TABLET 5 MG GT ×2 (08:52→20:44)
[2025-09-03] MEDS: METOPROLOL SUCCINATE XL 25 MG TABCR 50 MG GT ×2 (08:52→20:44)
[2025-09-03 08:59] LABS: INR 1.4 (0.9-1.3); Prothrombin Time 14.1 Seconds (9.0-12.2)
[2025-09-03 09:10] LABS: Alanine Aminotransferase < 7 U/L (10-49); Albumin, Serum 4.0 gm/dL (3.4-4.8); Albumin/Globulin Ratio 1.1 (1.2-2.2); Alkaline Phosphatase 82 U/L (46-116); Anion Gap 9 (7-16); Aspartate Amino Transferase 17 U/L (0-34); BUN/Creatinine Ratio 14 Ratio (12-20); Bilirubin,Total 0.7 mg/dL (0.3-1.2); Blood Urea Nitrogen 11 mg/dL (9-23); Calcium 9.1 mg/dL (8.3-10.6); Calcium (Corrected) 9.1 mg/dL (8.5-10.1); Carbon Dioxide 26.9 mMol/L (20.0-31.0); Chloride 100 mMol/L (98-107); Creatinine (Component) 0.8 mg/dL (0.6-1.3); Estimated Creatinine Clearance 56.5 mL/min (>60); Globulin 3.7 gm/dL (2.3-3.5); Glucose 117 mg/dL (74-106); Magnesium 2.0 mg/dL (1.6-2.6); Osmolality,Calculated 272 (275-295); Phosphorous 2.7 mg/dL (2.4-5.1); Potassium 3.6 mMol/L (3.4-5.1); Sodium 136 mMol/L (136-145); Total Protein 7.7 gm/dL (5.7-8.2); eGFR > 60 See Note
[2025-09-03] MEDS: VALPROIC ACID SYRUP 250 MG/5 ML UDC 64 MG PO ×3 (12:22→23:36)
--- NOTE | 2025-09-03 12:40 | PC.NURSE ---
patient vomited 4x ever since this am, called dr. conner and made aware, new order receved.
--- NOTE | 2025-09-03 13:25 | ESPR_ITS ---
<Statement entered by Brock Wallis MD - 09/03/25 15:20> No acute overnight events reported. Seen and examined at bedside and patient verbalizing but speech is unintelligible. Otherwise, she appears to be laying in bed comfortably. She continues to have episodes of yellow-colored emesis emesis for which tube feedings were held. Currently on Reglan and started on promethazine today by GI. Will continue to monitor at this time. BP 160/118 and pulse of 118. Has history of atrial fibrillation and continued home Eliquis 5 mg twice daily and metoprolol succinate 50 mg twice daily. Given that patient continues to have multiple episodes of emesis with tube feedings and recently replaced PEG tube, will reach out to sister and update her on case as well as patient's poor prognosis. ----- Note reviewed and agree with care plan as documented. Please refer to the note below for further details. Plan discussed with attending physician Dr. Santo Wallis MD PGY-2 Internal Medicine Documentation for date of: 09/03/25 Subjective Subjective Interval history: NAEO. Patient seen and examined at bedside. Patient orients to voice occasionally. Is tracking with eyes. Patient attempted to speak today, not understandable. Patient continues to vomit. Tube feeds were held. GI was notified. Dietitian was referred. Continues to be on antibiotics for PEG tube cellulitis Vitals signficant for continued tachycardia, to 120s Exam Vital Signs Temp Pulse Resp BP Pulse Ox O2 Del Method O2 Flow Rate 98.6 F 120 H 18 152/83 H 99 Room Air 1 09/03/25 08:00 09/03/25 12:00 09/03/25 09:45 09/03/25 08:52 09/03/25 08:00 09/03/25 08:00 09/02/25 12:00 FiO2 98 09/02/25 04:00 Narrative Exam General: No acute distress, resting in bed; Occasional eye opening, attempted to verbally speak (not able to understand); not following commands; Left hand mitten Skin: Upper extremities w/ bruises; Lower extremities dryness HENT: NCAT, EOMI/PERRL, not icteric. External ears normal. No rhinorrhea. Moist mucous membranes Cardiovascular: Regular rate, irregular rhythm, no murmur, +S1/S2. Respiratory: Lungs CTAB GI: NG Tube and PEG tube in place (abdominal binder);Soft, nontender, non- distended. No guarding or rebound tenderness : No suprapubic tenderness. No flank tenderness bilaterally. Extremities: trace edema, no cyanosis, no clubbing. Extremity pulses present. B ilateral feet deformity R>L Neuro: GCS 10; Moving all 4 extremities. CN could not formally tested Psychiatric: Could not be assessed Objective Labs 09/04/25 05:19 09/04/25 05:19 Labs: Laboratory Results - last 24 hr 09/03/25 08:17 WBC 11.2 H RBC 3.66 L Hgb 10.9 L Hct 33.2 L MCV 91 MCH 29.8 MCHC 32.8 RDW Std Deviation 48.2 H Plt Count 332 D Neut % (Auto) 75 Lymph % (Auto) 13 [place] % (Auto) 9 Eos % (Auto) 2 Baso % (Auto) 0 Neut # (Auto) 8.4 H Lymph # (Auto) 1.5 [place] # (Auto) 1.0 H Eos # (Auto) 0.3 Baso # (Auto) 0.1 Immature Gran # (Auto) 0.07 H Absolute Nucleated RBC 0.00 Immature Gran % 1 H Nucleated RBC % 0 PT 14.1 H INR 1.4 H Sodium 136 Potassium 3.6 Chloride 100 Carbon Dioxide 26.9 Anion Gap 9 BUN 11 Creatinine 0.8 Estim Creat Clear Calc 56.5 L eGFR > 60 BUN/Creatinine Ratio 14 Glucose 117 H Calculated Osmolality 272 L Calcium 9.1 Corrected Calcium 9.1 Phosphorus 2.7 Magnesium 2.0 Total Bilirubin 0.7 AST 17 ALT < 7 L Alkaline Phosphatase 82 D Total Protein 7.7 Albumin 4.0 Globulin 3.7 H Albumin/Globulin Ratio 1.1 L ABG Interpretation ABG results: 08/31/25 09/01/25 05:50 14:59 VBG pH 7.45 7.52 VBG pCO2 39 31 L VBG pO2 65 H 94 H D VBG Base Excess 3 3 Quality Measures Quality Measures VTE prophylaxis Advance care planning discussed with:: patient Assessment & Plan Assessment Current Active Medications: Generic Name Dose Route Start Last Admin Trade Name Freq PRN Reason Stop Dose Admin Acetaminophen 650 mg 08/31/25 09:30 Acetaminophen 325 Mg Tablet PO 09/30/25 09:29 Q6H PRN Fever >101.5 or pain 1-3 Apixaban 5 mg 09/02/25 21:00 09/03/25 08:52 Apixaban 2.5 Mg Tablet GT 10/02/25 20:59 5 mg BID JACKELINE Administration Cefazolin Sodium/Dextrose 1 gm in 50 mls @ 100 mls/hr 09/01/25 06:00 09/03/25 05:14 Ancef Ivpb IV 09/08/25 05:59 100 mls/hr Q8HR JACKELINE Administration Promethazine HCl 12.5 mg/ 50.5 mls @ 2.5 mls/min 09/03/25 12:45 Sodium Chloride IV 10/03/25 12:44 Q6HR JACKELINE Protocol Labetalol HCl 10 mg 08/31/25 09:24 Labetalol Inj 5 Mg/Ml Vial 4 Ml IVP 09/30/25 09:29 Q10MIN PRN Hypertension Lansoprazole 30 mg 09/04/25 09:00 Lansoprazole 30 Mg Tab. GT 10/04/25 08:59 QDAY JACKELINE Metoprolol Succinate 50 mg 09/02/25 21:00 09/03/25 08:52 Metoprolol Succinate Xl 25 Mg Tabcr GT 10/02/25 20:59 50 mg BID JACKELINE Administration Valproic Acid 64 mg 09/03/25 12:00 09/03/25 12:22 Valproic Acid Syrup 250 Mg/5 Ml Udc PO 10/03/25 11:59 64 mg Q6HR JACKELINE Administration Plan Patient is a 85-year-old female with a history of recent embolic CVA, dementia (diagnosed in 2023), type 2 diabetes mellitus, paroxysmal atrial fibrillation (on Eliquis), bipolar I disorder, borderline personality disorder, and recurrent UTIs presents to the ED at [facility] from SNF with need for PEG Tube replacement; PEG tube was replaced, patient continues to have intractable nausea/vomiting. #PEG Tube malfunction #PEG Tube Site Cellulitis # Intractable nausea/vomiting Patient came from a senior care facility and was sent in for G-tube replacement as patient pulled out PEG tube. Multiple attempts were made to replace PEG tube in ED although unsuccessful. Gastroenterology following, recommendations appreciated GPC 1/2 speciated to staph epidermidis = contaminant WBC 11 Plan: - Continue IV cefazolin 1 gm q8hr for cellulitis. - Status post new PEG tube and consult dietary to start tube feeds and free water flushes. - Nausea/vomiting restarted today trying to limit antiemetics given patient has prolonged QTc. Promethazine 12.5 mg IV q6hr - Continue to wear abdominal binder at all times and PEG tube site to be clean twice daily. #Chronic atrial fibrillation with RVR #Primary hypertension Etiology for RVR like nausea/vomiting versus holding meds on admission for PEG tube placement [id number]: 3 Home medications: Eliquis 5 mg BID via feeding tube and metoprolol succ 50 mg via feeding tube Heart rate labile Plan: -Eliquis 5 mg gt bid -Metoprolol succ 50 mg gt bid #Non-insulin dependent Type 2 diabetes mellitus 08/31/25- A1c 6.2. -Plan: Well-controlled. Continue insulin sliding scale with Accu-Cheks. Target blood sugar 140-180 while hospitalized. #Hx of recent embolic stroke #History of dementia 08/26: MRI shows multiple embolic infarcts in the left temporal, left frontal, left occipital, and left parietal lobes. - Plan: Continue Eliquis. Outpatient follow-up with neurology. #Bipolar 1 disorder Plan: Continue Valproate 64 mg syrup q6 hr #Moderate QTc prolongation EKG on arrival showed QTc 512 ms Patient at risk for life-threatening arrhythmias, particularly torsades de points Plan ? Keep potassium above 4 and magnesium above 2 ? Telemetry ? Avoid QTc prolonging drugs Disposition: Telemetry for PEG tube malfunction and cellulitis with hospital course complicated by atrial fibrillation with RVR. Diet: NPO (vomiting); Tube feeds s/p new PEG placement GI Prophylaxis: Lansoprazole 30 mg gt qd Bowel Prophylaxis: none DVT Prophylaxis: Eliquis CODE STATUS: DNR Patient plan of care was discussed with the attending physician, Dr. Blanchard & senior resident Dr. Bimal Jessica MD PGY-1 Attending Provider Attestation/Addendum I have examined the patient, reviewed labs and imaging findings, discussed the case with the resident(s), and reviewed entered orders. I agree with the plan of care as outlined in this note. Dr. Santo MD
[2025-09-03] MEDS: PROMETHAZINE INJ 12.5 MG in SODIUM CHLORIDE 0.9% 50 ML 2.5 MG IV ×3 (13:36→23:37)
--- NOTE | 2025-09-03 15:23 | ESPR_ITS ---
<Statement entered by Anjelica Watt MD - 09/10/25 17:34> I personally examined the patient with resident physician Dr. Cedeño PGY2 patient's has A-fib RVR admitted to hospital for multiple issues multiple embolic strokes recommended to continue diltiazem IV for rate control she is somewhat lethargic but stable not have any cardiovascular inpatient symptoms evaluated patient with resident physician agree with treatment plan recommendation as documented. Documentation for date of: 09/03/25 Subjective Subjective Interval history: Patient examined at bedside. Very lethargic, opens eyes to sternal rub, response to pain. Laboratory reviewed patient remains in A-fib rate 110?115. Continue metoprolol 50 mg twice daily and Eliquis 5 twice daily. Blood pressure stable 152/83. G-tube was replaced. Use IV diltiazem pushes as needed to control heart rate. Potassium 3.6, magnesium 2.0. Exam Vital Signs Temp Pulse Resp BP Pulse Ox O2 Del Method O2 Flow Rate 98.5 F 118 H 19 163/118 H 99 Room Air 1 09/03/25 12:00 09/03/25 12:00 09/03/25 12:00 09/03/25 12:00 09/03/25 12:00 09/03/25 12:00 09/02/25 12:00 FiO2 98 09/02/25 04:00 Narrative Exam General: No acute distress, resting in bed; Occasional eye opening, but not responding verbally; not following commands; Left hand mitten Skin: Upper extremities w/ bruises; Lower extremities dryness HENT: NCAT, EOMI/PERRL, not icteric. External ears normal. No rhinorrhea. Moist mucous membranes Cardiovascular: Tachycardia, irregular rhythm, no murmur, +S1/S2. Respiratory: Lungs CTAB GI: NG Tube and PEG tube in place (abdominal binder);Soft, nontender, non- distended. No guarding or rebound tenderness. : No suprapubic tenderness. No flank tenderness bilaterally. Extremities: trace edema, no cyanosis, no clubbing. Extremity pulses present. Bilateral feet deformity R>L Neuro: all 4 extremities. CN could not formally tested Psychiatric: Could not be assessed Objective Labs 09/03/25 08:17 09/03/25 08:17 Labs: Laboratory Results - last 24 hr 09/03/25 08:17 WBC 11.2 H RBC 3.66 L Hgb 10.9 L Hct 33.2 L MCV 91 MCH 29.8 MCHC 32.8 RDW Std Deviation 48.2 H Plt Count 332 D Neut % (Auto) 75 Lymph % (Auto) 13 [place] % (Auto) 9 Eos % (Auto) 2 Baso % (Auto) 0 Neut # (Auto) 8.4 H Lymph # (Auto) 1.5 [place] # (Auto) 1.0 H Eos # (Auto) 0.3 Baso # (Auto) 0.1 Immature Gran # (Auto) 0.07 H Absolute Nucleated RBC 0.00 Immature Gran % 1 H Nucleated RBC % 0 PT 14.1 H INR 1.4 H Sodium 136 Potassium 3.6 Chloride 100 Carbon Dioxide 26.9 Anion Gap 9 BUN 11 Creatinine 0.8 Estim Creat Clear Calc 56.5 L eGFR > 60 BUN/Creatinine Ratio 14 Glucose 117 H Calculated Osmolality 272 L Calcium 9.1 Corrected Calcium 9.1 Phosphorus 2.7 Magnesium 2.0 Total Bilirubin 0.7 AST 17 ALT < 7 L Alkaline Phosphatase 82 D Total Protein 7.7 Albumin 4.0 Globulin 3.7 H Albumin/Globulin Ratio 1.1 L ABG Interpretation ABG results: 08/31/25 09/01/25 05:50 14:59 VBG pH 7.45 7.52 VBG pCO2 39 31 L VBG pO2 65 H 94 H D VBG Base Excess 3 3 Quality Measures Quality Measures VTE prophylaxis Advance care planning discussed with:: other Assessment & Plan Assessment Current Active Medications: Generic Name Dose Route Start Last Admin Trade Name Freq PRN Reason Stop Dose Admin Acetaminophen 650 mg 08/31/25 09:30 Acetaminophen 325 Mg Tablet PO 09/30/25 09:29 Q6H PRN Fever >101.5 or pain 1-3 Apixaban 5 mg 09/02/25 21:00 09/03/25 08:52 Apixaban 2.5 Mg Tablet GT 10/02/25 20:59 5 mg BID JACKELINE Administration Cefazolin Sodium/Dextrose 1 gm in 50 mls @ 100 mls/hr 09/01/25 06:00 09/03/25 13:54 Ancef Ivpb IV 09/08/25 05:59 100 mls/hr Q8HR JACKELINE Administration Promethazine HCl 12.5 mg/ 50.5 mls @ 2.5 mls/min 09/03/25 12:45 09/03/25 13:36 Sodium Chloride IV 10/03/25 12:44 2.5 mls/min Q6HR JACKELINE Administration Protocol Labetalol HCl 10 mg 08/31/25 09:24 Labetalol Inj 5 Mg/Ml Vial 4 Ml IVP 09/30/25 09:29 Q10MIN PRN Hypertension Lansoprazole 30 mg 09/04/25 09:00 Lansoprazole 30 Mg Tab.Rap. GT 10/04/25 08:59 QDAY JACKELINE Metoprolol Succinate 50 mg 09/02/25 21:00 09/03/25 08:52 Metoprolol Succinate Xl 25 Mg Tabcr GT 10/02/25 20:59 50 mg BID JACKELINE Administration Valproic Acid 64 mg 09/03/25 12:00 09/03/25 12:22 Valproic Acid Syrup 250 Mg/5 Ml Udc PO 10/03/25 11:59 64 mg Q6HR JACKELINE Administration Plan Patient is a 85-year-old female with a history of recent embolic CVA, dementia (diagnosed in 2023), type 2 diabetes mellitus, paroxysmal atrial fibrillation (on Eliquis), bipolar I disorder, borderline personality disorder, and recurrent UTIs presents to the ED at [facility] from SNF with need for PEG Tube replacement; PEG tube was placed along with NG tube, patient vomiting multiple times. Cardiology was consulted for A-fib with RVR. #Atrial fibrillation with rapid ventricular response due to not having her oral medications. #Known to have chronic atrial fibrillation. #History of multiple embolic stroke requiring recent hospitalization for altered mental status. #Mild leukocytosis. 1. Continue metoprolol 50 mg b.i.d. for rate control. 2. Eliquis 5 mg b.i.d. for anticoagulation. 3. Monitor the patient for any tachycardia. 4. Use IV diltiazem to control the heart rate. Primary care team to manage above conditions and ongoing care needs. The patient's management plan was discussed with my attending physician Dr. Watt. Adeline Guzman, PGY-2
--- NOTE | 2025-09-03 16:49 | PC.NURSE ---
patient vomited 7x today, is aware. order to stop tube feeding .
--- NOTE | 2025-09-03 19:17 | PD.IMPROG ---
Documentation for date of: 09/03/25 Subjective Subjective Interval history: Patient evaluated continues to vomit DC Reglan Stop the feeding Promethazine 12.5 mg IV push Q6 standing order KUB reviewed showed dilated colon with air and stool and no free air Exam Vital Signs Temp Pulse Resp BP Pulse Ox O2 Del Method O2 Flow Rate 98.3 F 114 H 19 137/111 H 94 L Room Air 1 09/03/25 16:00 09/03/25 16:00 09/03/25 16:00 09/03/25 16:00 09/03/25 16:00 09/03/25 16:00 09/02/25 12:00 FiO2 98 09/02/25 04:00 Objective Labs 09/03/25 08:17 09/03/25 08:17 Labs: Laboratory Results - last 24 hr 09/03/25 08:17 WBC 11.2 H RBC 3.66 L Hgb 10.9 L Hct 33.2 L MCV 91 MCH 29.8 MCHC 32.8 RDW Std Deviation 48.2 H Plt Count 332 D Neut % (Auto) 75 Lymph % (Auto) 13 [place] % (Auto) 9 Eos % (Auto) 2 Baso % (Auto) 0 Neut # (Auto) 8.4 H Lymph # (Auto) 1.5 [place] # (Auto) 1.0 H Eos # (Auto) 0.3 Baso # (Auto) 0.1 Immature Gran # (Auto) 0.07 H Absolute Nucleated RBC 0.00 Immature Gran % 1 H Nucleated RBC % 0 PT 14.1 H INR 1.4 H Sodium 136 Potassium 3.6 Chloride 100 Carbon Dioxide 26.9 Anion Gap 9 BUN 11 Creatinine 0.8 Estim Creat Clear Calc 56.5 L eGFR > 60 BUN/Creatinine Ratio 14 Glucose 117 H Calculated Osmolality 272 L Calcium 9.1 Corrected Calcium 9.1 Phosphorus 2.7 Magnesium 2.0 Total Bilirubin 0.7 AST 17 ALT < 7 L Alkaline Phosphatase 82 D Total Protein 7.7 Albumin 4.0 Globulin 3.7 H Albumin/Globulin Ratio 1.1 L Impressions Impression: Nausea vomiting most likely gastrointestinal motility disorder Continue promethazine Repeat KUB Will follow n.p.o. except meds ABG Interpretation ABG results: 08/31/25 09/01/25 05:50 14:59 VBG pH 7.45 7.52 VBG pCO2 39 31 L VBG pO2 65 H 94 H D VBG Base Excess 3 3 Assessment & Plan A&P Narrative # Failure to thrive # Patient pulled the PEG tube out and the stoma has closed Plan Consent obtained for placement of percutaneous endoscopic gastrostomy tube placement via fiberoptic esophagogastroduodenoscopy under intravenous moderate sedation Thank you for the opportunity to participate in the care of this patient Time Spent With Patient Time: Total time spent is greater than 50% in coordination of care (as documented) at patient's floor/unit and/or counseling patient:
--- NOTE | 2025-09-03 19:19 | XR_ITS ---
Examination: Abdomen AP single view Technique: AP portable supine abdomen, single view Exam date and time: September 03, 2025, 0728 hours INDICATIONS: Abdominal pain and vomiting today. FINDINGS: Moderate to large amounts of air and stool throughout the colon Gastrostomy tube in the stomach No small bowel obstruction No free air Surgical clips upper right abdomen IMPRESSION: Moderate to large amounts of air and stool throughout the colon
[2025-09-04] VITALS (13 sets, daily range): BP systolic 143–167; BP diastolic 87–112; PULSE 97–135; RESP 14–88; TEMP 36.6–37; O2SAT 92–98; BMI 28.8
[2025-09-04] MEDS: ceFAZolin/D5W 1 GM IVPB 1 GM/50 ML BAG IV ×3 (05:17→21:01)
[2025-09-04] MEDS: VALPROIC ACID SYRUP 250 MG/5 ML UDC 64 MG PO ×4 (05:17→23:11)
[2025-09-04] MEDS: PROMETHAZINE INJ 12.5 MG in SODIUM CHLORIDE 0.9% 50 ML 2.5 MG IV ×4 (05:47→23:12)
[2025-09-04 06:00] LABS: Basophils # (Auto) 0.0 Thou/mm3 (0.0-0.2); Basophils % (Auto) 0 % (0-2.5); Eosinophils # (Auto) 0.0 Thou/mm3 (0.0-0.5); Eosinophils % (Auto) 0 % (0-10); Hematocrit 34.7 % (36.0-46.0); Hemoglobin 11.7 g/dL (12.0-16.0); Immature Granulocytes Auto 0.10 Thou/mm3 (0.00-0.00); Lymphocytes # (Auto) 1.8 Thou/mm3 (1.0-4.8); Lymphocytes % (Auto) 12 % (10-50); Mean Corpuscular HGB Conc 33.7 g/dl (31.0-37.0); Mean Corpuscular Hemoglobin 30.2 pg (25.0-35.0); Mean Corpuscular Volume 90 fL (80-100); Monocytes # (Auto) 1.4 Thou/mm3 (0.0-0.8); Monocytes % (Auto) 9 % (0-12); Neutrophils # (Auto) 11.8 Thou/mm3 (1.8-7.7); Neutrophils % (Auto) 78 % (37-80); Nucleated Red Blood Cell # 0.00 Thou/mm3 (0.00-0.00); Nucleated Red Blood Cell % 0 /100 WBC (0); Platelet Count 398 Thou/mm3 (140-440); RDW Standard Deviation 46.4 fL (36.4-46.3); Red Blood Count 3.87 Miln/mm3 (4.00-5.20); White Blood Count 15.2 Thou/mm3 (3.6-11.0)
[2025-09-04 06:18] LABS: Alanine Aminotransferase < 7 U/L (10-49); Albumin, Serum 3.9 gm/dL (3.4-4.8); Albumin/Globulin Ratio 1.0 (1.2-2.2); Alkaline Phosphatase 80 U/L (46-116); Anion Gap 13 (7-16); Aspartate Amino Transferase 15 U/L (0-34); BUN/Creatinine Ratio 14 Ratio (12-20); Bilirubin,Total 0.9 mg/dL (0.3-1.2); Blood Urea Nitrogen 10 mg/dL (9-23); Calcium 9.2 mg/dL (8.3-10.6); Calcium (Corrected) 9.3 mg/dL (8.5-10.1); Carbon Dioxide 24.3 mMol/L (20.0-31.0); Chloride 97 mMol/L (98-107); Creatinine (Component) 0.7 mg/dL (0.6-1.3); Estimated Creatinine Clearance 64.3 mL/min (>60); Globulin 3.9 gm/dL (2.3-3.5); Glucose 131 mg/dL (74-106); Magnesium 1.8 mg/dL (1.6-2.6); Osmolality,Calculated 269 (275-295); Phosphorous 3.1 mg/dL (2.4-5.1); Potassium 3.8 mMol/L (3.4-5.1); Sodium 134 mMol/L (136-145); Total Protein 7.8 gm/dL (5.7-8.2); eGFR > 60 See Note
--- NOTE | 2025-09-04 06:33 | PC.NURSE ---
patient vomitted 5 times bile.
[2025-09-04] MEDS: METOPROLOL TARTRATE 25 MG TABLET PO (08:34)
[2025-09-04] MEDS: APIXABAN 2.5 MG TABLET 5 MG GT ×2 (08:34→20:54)
[2025-09-04] MEDS: LANSOPRAZOLE 30 MG TAB.RAP.DR GT (08:34)
[2025-09-04] MEDS: METOPROLOL TARTRATE 25 MG TABLET GT ×2 (09:36→11:52)
--- NOTE | 2025-09-04 10:03 | ESPR_ITS ---
<Statement entered by Brock Wallis MD - 09/04/25 14:24> No acute overnight events, though patient noted to have 5 episodes of small volume emesis. Currently on promethazine, no additional reports of emesis during day shift. Given large amount of stool burden seen on imaging, will give an enema. 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 Sister was at bedside and had discussion regarding patient's prognosis and she was requesting hospice referral, which was placed. For atrial fibrillation, unable to crush metoprolol succinate and so transitioned to tartrate. Rate remains elevated and dose increased to 75 mg twice daily by cardiology. Will follow-up on further GI and cardiology results. ----- Note reviewed and agree with care plan as documented. Please refer to the note below for further details. Plan discussed with attending physician Dr. Santo Wallis MD PGY-2 Internal Medicine Documentation for date of: 09/04/25 Subjective Subjective Interval history: NAEO. Patient seen and examined at bedside. Patient orients to voice occasionally. Continues tracking with eyes. Patient continues occasional verbalizations that are not understandable. Patient continues to vomit. Tube feeds were held. GI was notified. Dietitian was referred. Continues to be on antibiotics for PEG tube cellulitis Metop succ 50 mg via g tube changed to metop tartrate 75 mg via g tube (succ is extended release, cannot crush) Vitals signficant for continued tachycardia, to 140s Sister was present and discussed patient's clinical course. Sister is decision maker and wanted hospice, referral made. Wound care consulted for abdominal cellulitis Enema started after XR abdomen showed mod-large amount of air and stool in colon. Exam Vital Signs Temp Pulse Resp BP Pulse Ox O2 Del Method O2 Flow Rate 98.2 F 126 H 22 H 147/112 H 95 Room Air 2 09/04/25 04:00 09/04/25 09:36 09/04/25 07:08 09/04/25 09:36 09/04/25 07:08 09/04/25 04:00 09/04/25 07:08 FiO2 98 09/02/25 04:00 Narrative Exam General: No acute distress, resting in bed; Occasional eye opening, attempted to verbally speak (not able to understand); not following commands; Left hand mitten Skin: Upper extremities w/ bruises; Lower extremities dryness HENT: NCAT, EOMI/PERRL, not icteric. External ears normal. No rhinorrhea. Moist mucous membranes Cardiovascular: Regular rate, irregular rhythm, no murmur, +S1/S2. Respiratory: Lungs CTAB GI: PEG tube in place (abdominal binder);Soft, nontender, non-distended. No guarding or rebound tenderness : No suprapubic tenderness. No flank tenderness bilaterally. Extremities: trace edema, no cyanosis, no clubbing. Extremity pulses present. B ilateral feet deformity R>L Neuro: GCS 10; Moving all 4 extremities. CN could not formally tested Psychiatric: Could not be assessed Objective Labs 09/05/25 05:20 09/05/25 05:20 Labs: Laboratory Results - last 24 hr 09/04/25 05:19 WBC 15.2 H RBC 3.87 L Hgb 11.7 L Hct 34.7 L MCV 90 MCH 30.2 MCHC 33.7 RDW Std Deviation 46.4 H Plt Count 398 D Neut % (Auto) 78 Lymph % (Auto) 12 [place] % (Auto) 9 Eos % (Auto) 0 Baso % (Auto) 0 Neut # (Auto) 11.8 H Lymph # (Auto) 1.8 [place] # (Auto) 1.4 H Eos # (Auto) 0.0 Baso # (Auto) 0.0 Immature Gran # (Auto) 0.10 H Absolute Nucleated RBC 0.00 Immature Gran % 1 H Nucleated RBC % 0 Sodium 134 L Potassium 3.8 Chloride 97 L Carbon Dioxide 24.3 Anion Gap 13 BUN 10 Creatinine 0.7 Estim Creat Clear Calc 64.3 eGFR > 60 BUN/Creatinine Ratio 14 Glucose 131 H Calculated Osmolality 269 L Calcium 9.2 Corrected Calcium 9.3 Phosphorus 3.1 Magnesium 1.8 Total Bilirubin 0.9 AST 15 ALT < 7 L Alkaline Phosphatase 80 Total Protein 7.8 Albumin 3.9 Globulin 3.9 H Albumin/Globulin Ratio 1.0 L ABG Interpretation ABG results: 08/31/25 09/01/25 05:50 14:59 VBG pH 7.45 7.52 VBG pCO2 39 31 L VBG pO2 65 H 94 H D VBG Base Excess 3 3 Quality Measures Quality Measures VTE prophylaxis Advance care planning discussed with:: patient and sibling Assessment & Plan Assessment Current Active Medications: Generic Name Dose Route Start Last Admin Trade Name Shaquille PRN Reason Stop Dose Admin Acetaminophen 650 mg 08/31/25 09:30 Acetaminophen 325 Mg Tablet PO 09/30/25 09:29 Q6H PRN Fever >101.5 or pain 1-3 Apixaban 5 mg 09/02/25 21:00 09/04/25 08:34 Apixaban 2.5 Mg Tablet GT 10/02/25 20:59 5 mg BID JACKELINE Administration Cefazolin Sodium/Dextrose 1 gm in 50 mls @ 100 mls/hr 09/01/25 06:00 09/04/25 05:17 Ancef Ivpb IV 09/08/25 05:59 100 mls/hr Q8HR JACKELINE Administration Promethazine HCl 12.5 mg/ 50.5 mls @ 2.5 mls/min 09/03/25 12:45 09/04/25 05:47 Sodium Chloride IV 10/03/25 12:44 2.5 mls/min Q6HR JACKELINE Administration Protocol Labetalol HCl 10 mg 08/31/25 09:24 Labetalol Inj 5 Mg/Ml Vial 4 Ml IVP 09/30/25 09:29 Q10MIN PRN Hypertension Lansoprazole 30 mg 09/04/25 09:00 09/04/25 08:34 Lansoprazole 30 Mg Tab GT 10/04/25 08:59 30 mg QDAY JACKELINE Administration Metoprolol Tartrate 50 mg 09/04/25 21:00 Metoprolol Tartrate 25 Mg Tablet PO 10/04/25 20:59 BID JACKELINE Valproic Acid 64 mg 09/03/25 12:00 09/04/25 05:17 Valproic Acid Syrup 250 Mg/5 Ml Udc PO 10/03/25 11:59 64 mg Q6HR JACKELINE Administration Plan Patient is a 85-year-old female with a history of recent embolic CVA, dementia (diagnosed in 2023), type 2 diabetes mellitus, paroxysmal atrial fibrillation (on Eliquis), bipolar I disorder, borderline personality disorder, and recurrent UTIs presents to the ED at [facility] from SNF with need for PEG Tube replacement; PEG tube was replaced, patient continues to have intractable nausea/vomiting. Patient referred to hospice after discussion 09/04 with sister #PEG Tube malfunction #PEG Tube Site Cellulitis # Intractable nausea/vomiting Patient came from a longterm facility and was sent in for G-tube replacement as patient pulled out PEG tube. Multiple attempts were made to replace PEG tube in ED although unsuccessful. GPC / speciated to staph epidermidis = contaminant WBC 11 Plan: - Continue IV cefazolin 1 gm q8hr for cellulitis. - Status post new PEG tube and consult dietary to start tube feeds and free water flushes. - GI consulted, appreciate recs - Nausea/vomiting restarted today trying to limit antiemetics given patient has prolonged QTc. - Dietitian referred - Promethazine 12.5 mg IV q6hr - Continue to wear abdominal binder at all times and PEG tube site to be clean twice daily. - wound care referred - Hospice referred after discussion with sister at bedside today. - Enema started after XR abdomen showed mod-large amount of air and stool in colon. #Chronic atrial fibrillation with RVR #Primary hypertension Etiology for RVR like nausea/vomiting versus holding meds on admission for PEG tube placement [id number]: 3 Home medications: Eliquis 5 mg BID via feeding tube and metoprolol succ 50 mg via feeding tube Heart rate labile Plan: -Eliquis 5 mg gt bid -Metop succ 50 mg bid via g tube changed to metop tartrate 75 mg bid via g tube (succ is extended release, cannot crush) -Cardiology consulted, appreciate recs #Non-insulin dependent Type 2 diabetes mellitus 08/31/25- A1c 6.2. Plan: -Well-controlled. Continue insulin sliding scale with Accu-Cheks. -Target blood sugar 140-180 while hospitalized. #Hx of recent embolic stroke #History of dementia 08/26: MRI shows multiple embolic infarcts in the left temporal, left frontal, left occipital, and left parietal lobes. Plan: -Continue Eliquis 5 mg gt bid -Outpatient follow-up with neurology. #Bipolar 1 disorder Plan: Continue Valproate 64 mg syrup q6 hr #Moderate QTc prolongation EKG on arrival showed QTc 512 ms Patient at risk for life-threatening arrhythmias, particularly torsades de points Plan ? Keep potassium above 4 and magnesium above 2 ? Telemetry ? Avoid QTc prolonging drugs Disposition: Telemetry for PEG tube malfunction and cellulitis with hospital course complicated by atrial fibrillation with RVR. Diet: NPO (vomiting); Tube feeds s/p new PEG placement GI Prophylaxis: Lansoprazole 30 mg gt qd Bowel Prophylaxis: none DVT Prophylaxis: Eliquis CODE STATUS: DNR Patient plan of care was discussed with the attending physician, Dr. Blanchard & senior resident Dr. Bimal Jessica MD PGY-1 Attending Provider Attestation/Addendum I have examined the patient, reviewed labs and imaging findings, discussed the case with the resident(s), and reviewed entered orders. I agree with the plan of care as outlined in this note. Dr. Santo MD
--- NOTE | 2025-09-04 11:58 | PC.SS ---
EDUCATION SPEC conducted phone contact with the patient?s sister, Sia Noel ; to conduct initial assessment and to discuss discharge planning on behalf of the patient.? Patient is a resident of [facility].? Patient has been at the SNF for approximately 3 weeks, per patient?s sister.? Patient utilizes a wheelchair to assist with mobility.? Patient does not require the use of home oxygen.? Patient requires assistance with the completion of ADL?s.? Patient?s medical surrogate decision maker is sister, Sia Noel.? Plan is for the patient to return to [facility] at the time of discharge.? senior web services developer to assist with arranging transportation on behalf of the patient. No discharge needs identified by the patient. ?No further intervention required at this time, social media marketing analyst will be available to address any further concerns.? Next of Kin: Sia Bert D/C Plan: [facility] PCP: Dr. Rebollar
--- NOTE | 2025-09-04 17:22 | PD.IMPROG ---
Documentation for date of: 09/04/25 Subjective Subjective Interval history: 1 episode of vomiting today 5 episodes last night KUB shows dilated colon with a lot of air and stool throughout the colon particularly also in the right colon Patient on promethazine 12.5 mg every 6 hours Add Reglan 5 mg IV push Q6 Once nausea vomiting gets better: Needs to be flushed out to clean the stool out and hopefully that will also help the vomiting No signs of any acute abdomen on examination no free air under the diaphragm on recent KUB Exam Vital Signs Temp Pulse Resp BP Pulse Ox O2 Del Method O2 Flow Rate 98.5 F 119 H 16 156/94 H 98 Nasal Cannula 2 09/04/25 16:00 09/04/25 16:00 09/04/25 16:00 09/04/25 16:00 09/04/25 16:00 09/04/25 16:00 09/04/25 16:00 FiO2 98 09/02/25 04:00 Objective Labs 09/04/25 05:19 09/04/25 05:19 Labs: Laboratory Results - last 24 hr 09/04/25 05:19 WBC 15.2 H RBC 3.87 L Hgb 11.7 L Hct 34.7 L MCV 90 MCH 30.2 MCHC 33.7 RDW Std Deviation 46.4 H Plt Count 398 D Neut % (Auto) 78 Lymph % (Auto) 12 [place] % (Auto) 9 Eos % (Auto) 0 Baso % (Auto) 0 Neut # (Auto) 11.8 H Lymph # (Auto) 1.8 [place] # (Auto) 1.4 H Eos # (Auto) 0.0 Baso # (Auto) 0.0 Immature Gran # (Auto) 0.10 H Absolute Nucleated RBC 0.00 Immature Gran % 1 H Nucleated RBC % 0 Sodium 134 L Potassium 3.8 Chloride 97 L Carbon Dioxide 24.3 Anion Gap 13 BUN 10 Creatinine 0.7 Estim Creat Clear Calc 64.3 eGFR > 60 BUN/Creatinine Ratio 14 Glucose 131 H Calculated Osmolality 269 L Calcium 9.2 Corrected Calcium 9.3 Phosphorus 3.1 Magnesium 1.8 Total Bilirubin 0.9 AST 15 ALT < 7 L Alkaline Phosphatase 80 Total Protein 7.8 Albumin 3.9 Globulin 3.9 H Albumin/Globulin Ratio 1.0 L Impressions Impression: Nausea vomiting improving Add Reglan Stool and air throughout the colon but no free air Will need a GoLytely flush once vomiting gets better ABG Interpretation ABG results: 08/31/25 09/01/25 05:50 14:59 VBG pH 7.45 7.52 VBG pCO2 39 31 L VBG pO2 65 H 94 H D VBG Base Excess 3 3 Assessment & Plan A&P Narrative # Failure to thrive # Patient pulled the PEG tube out and the stoma has closed Plan Consent obtained for placement of percutaneous endoscopic gastrostomy tube placement via fiberoptic esophagogastroduodenoscopy under intravenous moderate sedation Thank you for the opportunity to participate in the care of this patient Time Spent With Patient Time: Total time spent is greater than 50% in coordination of care (as documented) at patient's floor/unit and/or counseling patient:
[2025-09-04] MEDS: METOCLOPRAMIDE INJ 5 MG/ML VIAL 2 ML IVP ×2 (17:30→23:11)
[2025-09-04] MEDS: METOPROLOL TARTRATE 25 MG TABLET 75 MG GT (20:54)
[2025-09-05] VITALS (9 sets, daily range): BP systolic 146–168; BP diastolic 89–104; PULSE 99–117; RESP 17–26; TEMP 36.1–36.2; O2SAT 93–97; BMI 28.7
--- NOTE | 2025-09-05 00:18 | ESPR_ITS ---
RE: LU CLEMONS : 1940 DATE OF SERVICE: 09/04/2025 Lu Clemons is 85 year old lady with multiple problems, multi-infarct strokes and atrial fibrillation, PEG tube placement, came to the hospital because of AFib with RVR. Gastric tube came out, nurse placed back, patient is back on medication diltiazem. The patient is on metoprolol tartrate 50 mg daily. Today, heart rate is still 120, persistently tachycardic. Otherwise doing well. She is tolerating well, not offering any complaints of shortness of breath or chest pain. VITAL SIGNS: Heart rate is 110. Blood pressure 160/100. NECK: Supple. LUNGS: Decreased breath sounds. CARDIOVASCULAR: Heart sounds irregular rhythm. ABDOMEN: Thin and soft. EXTREMITIES: No edema. IMPRESSION: Atrial fibrillation with rapid ventricular rate and hypertension. RECOMMENDATION: Increase the metoprolol dose to 75 mg b.i.d. Probably increase to 100 mg b.i.d. tomorrow if the heart rate and blood pressure remains high. That is a good choice for rate control in this patient for now. No anticoagulation is necessary because of gastrointestinal problem and bleeding. The patient should be anticoagulated on Eliquis 5 mg b.i.d. Watch for any gastrointestinal bleeding. Patient did suffer strokes on low-dose Eliquis and we increased the dose to 5 mg b.i.d. last admission. DT: 23:14:54 TT: 00:17:00 Ref: [id number] - TID: [id number]
[2025-09-05] MEDS: ceFAZolin/D5W 1 GM IVPB 1 GM/50 ML BAG IV ×2 (05:20→16:22)
[2025-09-05] MEDS: METOCLOPRAMIDE INJ 5 MG/ML VIAL 2 ML IVP ×3 (05:20→18:37)
[2025-09-05] MEDS: VALPROIC ACID SYRUP 250 MG/5 ML UDC 64 MG PO ×3 (05:20→18:37)
[2025-09-05] MEDS: PROMETHAZINE INJ 12.5 MG in SODIUM CHLORIDE 0.9% 50 ML 2.5 MG IV ×2 (05:49→14:53)
[2025-09-05 06:28] LABS: Basophils # (Auto) 0.1 Thou/mm3 (0.0-0.2); Basophils % (Auto) 0 % (0-2.5); Eosinophils # (Auto) 0.1 Thou/mm3 (0.0-0.5); Eosinophils % (Auto) 0 % (0-10); Hematocrit 34.7 % (36.0-46.0); Hemoglobin 11.5 g/dL (12.0-16.0); Immature Granulocytes Auto 0.14 Thou/mm3 (0.00-0.00); Lymphocytes # (Auto) 2.1 Thou/mm3 (1.0-4.8); Lymphocytes % (Auto) 12 % (10-50); Mean Corpuscular HGB Conc 33.1 g/dl (31.0-37.0); Mean Corpuscular Hemoglobin 30.2 pg (25.0-35.0); Mean Corpuscular Volume 91 fL (80-100); Monocytes # (Auto) 1.3 Thou/mm3 (0.0-0.8); Monocytes % (Auto) 8 % (0-12); Neutrophils # (Auto) 13.7 Thou/mm3 (1.8-7.7); Neutrophils % (Auto) 79 % (37-80); Nucleated Red Blood Cell # 0.00 Thou/mm3 (0.00-0.00); Nucleated Red Blood Cell % 0 /100 WBC (0); Platelet Count 352 Thou/mm3 (140-440); RDW Standard Deviation 48.1 fL (36.4-46.3); Red Blood Count 3.81 Miln/mm3 (4.00-5.20); White Blood Count 17.4 Thou/mm3 (3.6-11.0)
[2025-09-05 07:03] LABS: Alanine Aminotransferase < 7 U/L (10-49); Albumin, Serum 3.7 gm/dL (3.4-4.8); Albumin/Globulin Ratio 1.0 (1.2-2.2); Alkaline Phosphatase 87 U/L (46-116); Anion Gap 14 (7-16); Aspartate Amino Transferase 18 U/L (0-34); BUN/Creatinine Ratio 17 Ratio (12-20); Bilirubin,Total 1.1 mg/dL (0.3-1.2); Blood Urea Nitrogen 12 mg/dL (9-23); Calcium 9.2 mg/dL (8.3-10.6); Calcium (Corrected) 9.4 mg/dL (8.5-10.1); Carbon Dioxide 25.8 mMol/L (20.0-31.0); Chloride 98 mMol/L (98-107); Creatinine (Component) 0.7 mg/dL (0.6-1.3); Estimated Creatinine Clearance 64.2 mL/min (>60); Globulin 3.8 gm/dL (2.3-3.5); Glucose 114 mg/dL (74-106); Magnesium 1.9 mg/dL (1.6-2.6); Osmolality,Calculated 276 (275-295); Phosphorous 3.1 mg/dL (2.4-5.1); Potassium 3.5 mMol/L (3.4-5.1); Sodium 138 mMol/L (136-145); Total Protein 7.5 gm/dL (5.7-8.2); eGFR > 60 See Note
[2025-09-05] MEDS: METOPROLOL TARTRATE 25 MG TABLET 75 MG GT (08:41)
[2025-09-05] MEDS: APIXABAN 2.5 MG TABLET 5 MG GT (08:41)
[2025-09-05] MEDS: LANSOPRAZOLE 30 MG TAB.RAP.DR GT (08:42)
--- NOTE | 2025-09-05 09:45 | PC.SS ---
Addendum entered by Roro Franklin 09/05/25 14:58: [facility] agrees to follow. Their nurse will arrive close to 7p.m. and they already made contact with patient's sister. SS coordinated ambulance transport for 6p.m. to [facility] Original Note: follow up note: SS spoke to patient's sister, Sia, regarding hospice conversation over weekend. Sister states she is in agreement and prefers patient to return to SNF w/hospice services. She prefers whoever facility wants to use. SS updated facility and spoke to Jenny miguel who prefers [facility]. SS will send hospice referral to [facility]. Updated physician team. Tentative d/c today or tomorrow.
--- NOTE | 2025-09-05 09:54 | ESDS_ITS ---
<Statement entered by Brock Wallis MD - 09/05/25 12:55> Note reviewed and agree with care plan as documented. Please refer to the note below for further details. Plan discussed with attending physician Dr. Santo Wallis MD PGY-2 Internal Medicine Planned Discharge Date 09/05/25 DS: Providers Provider Date of admission: 09/01/25 14:17 Primary care physician: Nadya Rebollar MD Admitting Provider: Will Blanchard MD Attending Provider on Admission: Will Blanchard MD Consults: 08/31/25 09:26 Consult to Gastroenterology Routine Comment: Consulting Provider: Salud Arthur 08/31/25 22:04 Referral Nutritional Services Routine Comment: 09/01/25 15:05 Consult to Cardiology Urgent Comment: Consulting Provider: Anjelica Watt 09/02/25 13:27 Referral Registered Dietitian Routine Comment: Tube feeds and free water flushes. Thank you. 09/04/25 13:53 Referral Hospice Routine Comment: Attending Provider on DC: Will Blanchard MD Discharging Provider: Will Blanchard MD DS: Diagnosis Problem List Completed Was Problem List Reviewed/Reconciled?: Yes Hospital Course Hospital Course Hospital course: Patient is a 85-year-old female with a history of recent embolic CVA, dementia (diagnosed in 2023), type 2 diabetes mellitus, paroxysmal atrial fibrillation (on Eliquis), bipolar I disorder, borderline personality disorder, and recurrent UTIs presents to the ED at [facility] from SNF with need for PEG Tube replacement; PEG tube was replaced by GI specialist Dr. Arthur. Patient was noted to have intractable nausea/vomiting after the insertion of the new PEG tube, most likely due to body needing time to adapt. Antibiotic cefazolin was given for cellulitis around peg tube area on abdomen. Patient was given anti-emetics in order to stop the vomiting. Patient had a abdominal binder placed with a mitten on left hand so that the patient could not pull it out, as was done previously. Patient had her metoprolol regimen changed a few times to optimize rate control for her afib. Patient's sister had discussions with the hospital team regarding her mothers clinical status and she is well aware of her mother's prognosis and current status. She requested to have the patient on hospice care, which was referred on 09/04. Patient will be discharged to SNF with hospice services. Discharge Instructions - Patient prescribed Antibiotic, Augmentin, take 1 tab bid - Patient prescribed Anti-nausea medication metoclopramide 10 mg, take 1 every 6 hrs prn - Prescribed Metoprolol tartrate 100 mg, take 1 tablet twice per day via g tube ? Continue taking all other home medications as prescribed ? Follow-up with PCP within 1-2 weeks of discharge ? If you do not have a PCP, you can follow-up at the [facility] (you can call [phone] to make an appointment) ? Return to ED if symptoms worsen or recur #PEG Tube malfunction #PEG Tube Site Cellulitis # Intractable nausea/vomiting #Chronic atrial fibrillation with RVR #Primary hypertension #Non-insulin dependent Type 2 diabetes mellitus #Hx of recent embolic stroke #History of dementia #Bipolar 1 disorder #Moderate QTc prolongation Patient plan of care was discussed with the attending physician, Dr. Blanchard & senior resident Bimal Jessica MD PGY-1 Time Spent with Patient Time attestation: Total time spent providing and/or coordinating discharge services: Time spent: Greater than 30 minutes Exam Vital Signs Temp Pulse Resp BP Pulse Ox O2 Del Method O2 Flow Rate 97.0 F 99 19 150/96 H 93 L Room Air 1.5 09/05/25 08:00 09/05/25 08:41 09/05/25 08:00 09/05/25 08:41 09/05/25 08:00 09/05/25 08:00 09/05/25 03:22 FiO2 98 09/02/25 04:00 Narrative Exam General: No acute distress, resting in bed; Occasional eye opening, attempted to verbally speak (not able to understand); not following commands; Left hand mitten Skin: Upper extremities w/ bruises; Lower extremities dryness HENT: NCAT, EOMI/PERRL, not icteric. External ears normal. No rhinorrhea. Moist mucous membranes Cardiovascular: Regular rate, irregular rhythm, no murmur, +S1/S2. Respiratory: Lungs CTAB GI: PEG tube in place (abdominal binder);Soft, nontender, non-distended. No guarding or rebound tenderness : No suprapubic tenderness. No flank tenderness bilaterally. Extremities: trace edema, no cyanosis, no clubbing. Extremity pulses present. Bilateral feet deformity R>L Neuro: GCS 10; Moving all 4 extremities. CN could not formally tested Psychiatric: Could not be assessed Discharge Plan Plan Patient Disposition: Xfer Skilled Nsg Fac (SNF) Disposition Comment: On hospice Patient condition on transfer: Stable Care Plan Goals: - Patient prescribed Antibiotic, Augmentin, take 1 tab bid for 5 days - Patient prescribed Anti-nausea medication metoclopramide 10 mg, take 1 every 6 hrs prn - Prescribed Metoprolol tartrate 100 mg, take 1 tablet twice per day via g tube ? Continue taking all other home medications as prescribed ? Follow-up with PCP within 1-2 weeks of discharge ? If you do not have a PCP, you can follow-up at the [facility] (you can call [phone] to make an appointment) ? Return to ED if symptoms worsen or recur Prescriptions/Referrals Prescriptions/Med Rec: New metoprolol tartrate 100 mg tablet 100 mg feeding tube BID 30 Days Qty: 60 0RF metoclopramide HCl 10 mg tablet 10 mg feeding tube Q6H PRN (Reason: nausea and vomiting) Qty: 30 0RF amoxicillin-pot clavulanate 875-125 mg tablet 1 tab PO BID 5 Days Qty: 10 0RF Continued apixaban 5 mg tablet 5 mg feeding tube BID 30 Days Qty: 60 0RF Nephro-Naheed 0.8 mg Tablet 1 tab G-tube QDAY 30 Days Qty: 30 0RF thiamine mononitrate (vit B1) 100 mg Tablet 100 mg G-tube QDAY 30 Days Qty: 30 0RF multivitamin [Daily Multi-Vitamin] Tablet 1 tab feeding tube QAM 30 Days Qty: 30 0RF valproic acid (as sodium salt) 250 mg/5 mL (5 mL) solution 85 mg feeding tube TID Qty: 500 0RF megestrol 400 mg/10 mL (10 mL) suspension 400 mg feeding tube BID 30 Days Qty: 600 0RF Discontinued metoprolol succinate 50 mg capsule,sprinkle,ER 24hr 50 mg feeding tube BID Referrals: Nadya Rebollar MD [Primary Care Provider] Patient/Caregiver Discharge Instructions Education Materials: Understanding PEG Tube Feeding Print Language: Indian Stand Alone Forms: Kristina Award Info., Patient Portal Info Letter Discharge Order Discharge Orders: Discharge (Routine); Ordered 09/05/25 Ordered By: Brock Wallis Quality Discharge Quality Measures VTE prophylaxis MD Attestestation MD Attestation I have examined the patient, reviewed labs and imaging findings, discussed the case with the resident(s), and reviewed entered orders. I agree with the plan of care as outlined in this note. Time Spent: [address] Santo MD
--- NOTE | 2025-09-05 18:18 | ESPR_ITS ---
<Statement entered by Anjelica Watt MD - 09/10/25 17:36> I personally examined the patient with resident physician Dr. Cedeño PGY2 patient's has A-fib RVR admitted to hospital for multiple issues multiple embolic strokes recommended to continue diltiazem IV for rate control she is somewhat lethargic but stable not have any cardiovascular inpatient symptoms evaluated patient with resident physician agree with treatment plan recommendation as documented.Will continue the patient on metoprolol for presumed medications as we are able to give through the G-tube. Patient does require Eliquis full dose because of history of recurrent embolization while on low-dose Eliquis before Documentation for date of: 09/05/25 Subjective Subjective Interval history: Patient examined at bedside. Remains lethargic, some movement to sternal rub. Continues to get tube feedings. Vitals are stable. Telemetry reviewed she remains in atrial fibrillation heart rate tachycardic 115. Patient remains on metoprolol to tartrate 75 mg twice daily. May increase to 100 twice daily if remains tachycardic and blood pressure permissible. No anticoagulation is necessary because of gastrointestinal problem and bleeding. The patient should be anticoagulated on Eliquis 5 mg b.i.d. Exam Vital Signs Temp Pulse Resp BP Pulse Ox O2 Del Method O2 Flow Rate 97.0 F 113 H 25 H 152/104 H 93 L Room Air 1.5 09/05/25 16:00 09/05/25 16:00 09/05/25 16:00 09/05/25 16:00 09/05/25 16:00 09/05/25 16:00 09/05/25 03:22 FiO2 98 09/02/25 04:00 Narrative Exam General: No acute distress, resting in bed; Occasional eye opening, attempted to verbally speak (not able to understand); not following commands; Left hand mitten Skin: Upper extremities w/ bruises; Lower extremities dryness HENT: NCAT, EOMI/PERRL, not icteric. External ears normal. No rhinorrhea. Moist mucous membranes Cardiovascular: Regular rate, irregular rhythm, no murmur, +S1/S2. Respiratory: Lungs CTAB GI: PEG tube in place (abdominal binder);Soft, nontender, non-distended. No guarding or rebound tenderness : No suprapubic tenderness. No flank tenderness bilaterally. Extremities: trace edema, no cyanosis, no clubbing. Extremity pulses present. B ilateral feet deformity R>L Neuro: GCS 10; Moving all 4 extremities. CN could not formally tested Psychiatric: Could not be assessed Objective Labs 09/05/25 05:20 09/05/25 05:20 Labs: Laboratory Results - last 24 hr 09/05/25 05:20 WBC 17.4 H RBC 3.81 L Hgb 11.5 L Hct 34.7 L MCV 91 MCH 30.2 MCHC 33.1 RDW Std Deviation 48.1 H Plt Count 352 D Neut % (Auto) 79 Lymph % (Auto) 12 [place] % (Auto) 8 Eos % (Auto) 0 Baso % (Auto) 0 Neut # (Auto) 13.7 H Lymph # (Auto) 2.1 [place] # (Auto) 1.3 H Eos # (Auto) 0.1 Baso # (Auto) 0.1 Immature Gran # (Auto) 0.14 H Absolute Nucleated RBC 0.00 Immature Gran % 1 H Nucleated RBC % 0 Sodium 138 Potassium 3.5 Chloride 98 Carbon Dioxide 25.8 Anion Gap 14 BUN 12 Creatinine 0.7 Estim Creat Clear Calc 64.2 eGFR > 60 BUN/Creatinine Ratio 17 Glucose 114 H Calculated Osmolality 276 Calcium 9.2 Corrected Calcium 9.4 Phosphorus 3.1 Magnesium 1.9 Total Bilirubin 1.1 AST 18 ALT < 7 L Alkaline Phosphatase 87 Total Protein 7.5 Albumin 3.7 Globulin 3.8 H Albumin/Globulin Ratio 1.0 L ABG Interpretation ABG results: 08/31/25 09/01/25 05:50 14:59 VBG pH 7.45 7.52 VBG pCO2 39 31 L VBG pO2 65 H 94 H D VBG Base Excess 3 3 Quality Measures Quality Measures VTE prophylaxis Advance care planning discussed with:: other Assessment & Plan Assessment Current Active Medications: Generic Name Dose Route Start Last Admin Trade Name Freq PRN Reason Stop Dose Admin Acetaminophen 650 mg 08/31/25 09:30 Acetaminophen 325 Mg Tablet PO 09/30/25 09:29 Q6H PRN Fever >101.5 or pain 1-3 Apixaban 5 mg 09/02/25 21:00 09/05/25 08:41 Apixaban 2.5 Mg Tablet GT 10/02/25 20:59 5 mg BID JACKELINE Administration Cefazolin Sodium/Dextrose 1 gm in 50 mls @ 100 mls/hr 09/01/25 06:00 09/05/25 16:22 Ancef Ivpb IV 09/08/25 05:59 100 mls/hr Q8HR JACKELINE Administration Promethazine HCl 12.5 mg/ 50.5 mls @ 2.5 mls/min 09/03/25 12:45 09/05/25 14:53 Sodium Chloride IV 10/03/25 12:44 2.5 mls/min Q6HR JACKELINE Administration Protocol Labetalol HCl 10 mg 08/31/25 09:24 Labetalol Inj 5 Mg/Ml Vial 4 Ml IVP 09/30/25 09:29 Q10MIN PRN Hypertension Lansoprazole 30 mg 09/04/25 09:00 09/05/25 08:42 Lansoprazole 30 Mg Tab.Rap. GT 10/04/25 08:59 30 mg QDAY JACKELINE Administration Metoclopramide HCl 5 mg 09/04/25 18:00 09/05/25 13:20 Metoclopramide Inj 5 Mg/Ml Vial 2 Ml IVP 10/04/25 17:59 5 mg Q6HR JACKELINE Administration Protocol Metoprolol Tartrate 75 mg 09/04/25 21:00 09/05/25 08:41 Metoprolol Tartrate 25 Mg Tablet GT 10/04/25 20:59 75 mg BID JACKELINE Administration Valproic Acid 64 mg 09/03/25 12:00 09/05/25 13:19 Valproic Acid Syrup 250 Mg/5 Ml Udc PO 10/03/25 11:59 64 mg Q6HR JACKELINE Administration Plan Patient is a 85-year-old female with a history of recent embolic CVA, dementia (diagnosed in 2023), type 2 diabetes mellitus, paroxysmal atrial fibrillation (on Eliquis), bipolar I disorder, borderline personality disorder, and recurrent UTIs presents to the ED at [facility] from [facility]F with need for PEG Tube replacement; PEG tube was placed along with NG tube, patient vomiting multiple times. Cardiology was consulted for A-fib with RVR. #Atrial fibrillation with rapid ventricular response due to not having her oral medications. #Known to have chronic atrial fibrillation. #History of multiple embolic stroke requiring recent hospitalization for altered mental status. #Mild leukocytosis. 1. Continue metoprolol 75 mg b.i.d. for rate control. 2. Eliquis 5 mg b.i.d. for anticoagulation. 3. Monitor the patient for any tachycardia. 4. Use IV diltiazem to control the heart rate. Primary care team to manage above conditions and ongoing care needs. The patient's management plan was discussed with my attending physician Dr. Watt. Adeline Guzman, PGY-2
--- NOTE | 2025-09-05 21:44 | PD.IMPROG ---
Documentation for date of: 09/05/25 Subjective Subjective Interval history: Late entry for the note No contraindication to the planned anticoagulation from a GI viewpoint vomiting has improved Exam Vital Signs Temp Pulse Resp BP Pulse Ox O2 Del Method O2 Flow Rate 97.0 F 108 H 22 H 152/104 H 95 Room Air 1.5 09/05/25 16:00 09/05/25 19:41 09/05/25 19:41 09/05/25 16:00 09/05/25 19:41 09/05/25 16:00 09/05/25 03:22 FiO2 98 09/02/25 04:00 Objective Labs 09/05/25 05:20 09/05/25 05:20 Labs: Laboratory Results - last 24 hr 09/05/25 05:20 WBC 17.4 H RBC 3.81 L Hgb 11.5 L Hct 34.7 L MCV 91 MCH 30.2 MCHC 33.1 RDW Std Deviation 48.1 H Plt Count 352 D Neut % (Auto) 79 Lymph % (Auto) 12 [place] % (Auto) 8 Eos % (Auto) 0 Baso % (Auto) 0 Neut # (Auto) 13.7 H Lymph # (Auto) 2.1 [place] # (Auto) 1.3 H Eos # (Auto) 0.1 Baso # (Auto) 0.1 Immature Gran # (Auto) 0.14 H Absolute Nucleated RBC 0.00 Immature Gran % 1 H Nucleated RBC % 0 Sodium 138 Potassium 3.5 Chloride 98 Carbon Dioxide 25.8 Anion Gap 14 BUN 12 Creatinine 0.7 Estim Creat Clear Calc 64.2 eGFR > 60 BUN/Creatinine Ratio 17 Glucose 114 H Calculated Osmolality 276 Calcium 9.2 Corrected Calcium 9.4 Phosphorus 3.1 Magnesium 1.9 Total Bilirubin 1.1 AST 18 ALT < 7 L Alkaline Phosphatase 87 Total Protein 7.5 Albumin 3.7 Globulin 3.8 H Albumin/Globulin Ratio 1.0 L Impressions Impression: Gastrointestinal motility disorder Improved nausea vomiting From a GI viewpoint patient can be anticoagulated upon discharge ABG Interpretation ABG results: 08/31/25 09/01/25 05:50 14:59 VBG pH 7.45 7.52 VBG pCO2 39 31 L VBG pO2 65 H 94 H D VBG Base Excess 3 3 Assessment & Plan A&P Narrative # Failure to thrive # Patient pulled the PEG tube out and the stoma has closed Plan Consent obtained for placement of percutaneous endoscopic gastrostomy tube placement via fiberoptic esophagogastroduodenoscopy under intravenous moderate sedation Thank you for the opportunity to participate in the care of this patient Time Spent With Patient Time: Total time spent is greater than 50% in coordination of care (as documented) at patient's floor/unit and/or counseling patient:
== END 2025-09-05 20:36 | disposition skilled nursing facility (03) | DRG 393 ==
LOC: SERX 07:53 → SERHOLD 08:50 → S3NX 16:24 → S2NX 09-01 03:28
PROVIDERS: Emergency Medicine; Specialist; Admitting Provider Student in an Organized Health Care Education/Training Program; Emergency Provider Emergency Medicine; PCP Hospitalist; Visit Provider Student in an Organized Health Care Education/Training Program
PROC: 0DH63UZ Insertion of Feeding Device into Stomach, Percutaneous Approach (ICD-10-PCS; CPT 43246; principal; 2025-08-31 20:30)
DX: K94.23 Gastrostomy malfunction (principal); J18.9 Pneumonia, unspecified organism; F03.93 Unspecified dementia, unspecified severity, with mood disturbance; I48.20 Chronic atrial fibrillation, unspecified; L03.311 Cellulitis of abdominal wall; F03.911 Unspecified dementia, unspecified severity, with agitation; K94.22 Gastrostomy infection; Z66 Do not resuscitate; I12.9 Hypertensive chronic kidney disease with stage 1 through stage 4 chronic kidney disease, or unspecified chronic kidney disease; N18.9 Chronic kidney disease, unspecified; E11.22 Type 2 diabetes mellitus with diabetic chronic kidney disease; I48.0 Paroxysmal atrial fibrillation; F31.9 Bipolar disorder, unspecified; E78.5 Hyperlipidemia, unspecified; F60.3 Borderline personality disorder; R62.7 Adult failure to thrive; Z68.29 Body mass index [BMI] 29.0-29.9, adult; R11.2 Nausea with vomiting, unspecified; R13.10 Dysphagia, unspecified; Z79.4 Long term (current) use of insulin; Z79.01 Long term (current) use of anticoagulants; Z79.84 Long term (current) use of oral hypoglycemic drugs; Z79.899 Other long term (current) drug therapy; Z87.440 Personal history of urinary (tract) infections; Z86.19 Personal history of other infectious and parasitic diseases; Z86.73 Personal history of transient ischemic attack (TIA), and cerebral infarction without residual deficits; Z51.5 Encounter for palliative care
CPT/HCPCS: 36415; 51701; 71045; 74018; 80048; 80053; 81001; 82248; 82803; 83036; 83605; 83690; 83735; 83880; 84100; 84145; 84443; 84484; 85025; 85379; 85610; 85652; 85730; 86140; 87040; 87077; 87081; 87086; 87186; 87502; 87635; 93005; 94640; 96374; 99284; A4649; G0378; J0689; J1644; J1650; J2250; J2405; J2470; J2550; J2765; J3010; J3475; J3490; J7070; J7120; A9270

== ENCOUNTER 2025-09-07 22:47 | Emergency (ER) | payer MEDICARE, MEDICAID, SELFPAY ==
[2025-09-07 22:48] VITALS: BP 91/59; PULSE 113; RESP 20; TEMP 36.6; O2SAT 96
[2025-09-07 22:50] VITALS: BP 95/66; PULSE 106; PULSE 98; RESP 20; RESP 96; TEMP 36.6; O2SAT 95
--- NOTE | 2025-09-07 23:06 | EDNOTE_ITS ---
ED Abdominal Pain RME/HPI General Chief Complaint: General Adult/Misc Complain Stated complaint: peg tube replacement Time seen by provider: 09/07/25 23:06 Arrival date/time: 09/07/25 22:47 RME / HPI RME / HPI narrative: DR. 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 Patient uses a 24 [place]. No other complaints. Related Data Previous Rx's ?Medication ?Instructions ?Recorded apixaban 5 mg tablet 5 mg feeding tube BID 30 day s #60 08/28/25 tabs megestrol 400 mg/10 mL (10 mL) 400 mg (10 mL) feeding tube BID 30 08/28/25 oral suspension days #600 mL multivitamin (Daily Multi-Vitamin 1 tab feeding tube Q AM 30 days #30 08/28/25 tablet) tabs thiamine mononitrate (vit B1) 100 100 mg G-tube QDAY 3 0 days #30 tabs 08/28/25 mg tablet valproic acid (as sodium salt) 250 85 mg (1.7 mL) feed ing tube TID 08/28/25 mg/5 mL (5 mL) oral solution #500 mL vitamin B complex-vitamin C-folic 1 tab G-tube QDAY 30 days #30 tabs 08/28/25 acid 0.8 mg tablet (Nephro-Naheed) amoxicillin 875 mg-potassium 1 tab PO BID 5 days #10 t abs 09/05/25 clavulanate 125 mg tablet metoclopramide HCl 10 mg tablet 10 mg feeding tube Q6H PRN nausea 09/05/25 and vomiting #30 tabs metoprolol tartrate 100 mg tablet 100 mg feeding tube BID 30 days 09/05/25 #60 tabs Allergies Allergy/AdvReac Type Severity Reaction Status Date / Time No Known Allergies Allergy Verified 08/21/25 18:01 Review of Systems Review of Systems Systems Reviewed: All systems reviewed, normal except as documented Past Medical History Past Medical History NEUROLOGIC: Positive Dementia CARDIAC: Positive Atrial Fibrillation, Congestive Heart Failure and Hypertension ENDOCRINE: Positive Diabetes Mellitus Type 2 PSYCHO/SOCIAL: Positive Schizophrenia Surgical History SURGICAL: Positive Gastrostomy ED Exam Narrative Physical exam: GEN. APPEARANCE: The patient is alert, incomprehensible moaning, in no distress, lying down comfortably, does not look ill/toxic. Patient has good eye contact. Patient is cooperative. VITALS: All vitals were reviewed and the pulse ox is 96% on room air which is normal according to my interpretation. HEENT: Normocephalic, atraumatic. Pupils are equal and reactive. Oral mucosa is moist. Patent Nares NECK: Supple, nontender, no thyromegaly, no meningismus, no JVD CHEST: Symmetrical, atraumatic, and with equal expansion , Nontender on palpation no deformity and no crepitus. CARDIOVASCULAR: Heart regular rhythm no murmur or gallop rub or extra beats. LUNGS: Clear to auscultation bilaterally with symmetrical chest rise. No laboring tachypnea or wheezing. No intercostal subcostal retraction. No rales and no rhonchi. ABDOMEN: Soft, flat, nontender to palpation, no guarding or rebound tenderness. There are no abnormal masses palpated. Active and normal bowel sounds. EXTREMITIES: Nontender. No edema. No cyanosis. Patient is able to move all 4 extremities well, with full ROM and good CSM. SKIN: Warm and dry, no jaundice or rashes noted. MUSCULOSKELETAL: No lumbar or midline bony tenderness. There is no CVA tenderne ss. No paraspinal muscle spasm or tenderness. Contractures. NEURO: Patient is alert, Cranial nerves II through XII grossly intact. There is no focal neurologic deficits noted. 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 PSYCHIATRIC: Patient is in normal mood and affect. Course Quality Measures none Orders Category Date Time Status KUB [XR abdomen 1V] Stat Exams 09/07/25 23:06 Taken Vital Signs Vital signs: Vital Signs Temperature 97.8 F 09/07/25 22:48 Pulse Rate 113 H 09/07/25 22:48 Respiratory Rate 20 09/07/25 22:48 Blood Pressure 91/59 L 09/07/25 22:48 Pulse Oximetry (%) 96 09/07/25 22:48 Oxygen Delivery Method Room Air 09/07/25 22:48 PROCEDURES: Feeding Tube Replacement Type of Tube: gastrostomy Insertion Site Prior to Procedure: clean [place] Tube Size (F): 20 Balloon size (mL): 10 Verification of Placement: auscultation and KUB Tube Secured by: attachment device Patient Tolerated Procedure: well and no complications Additional Comments: 2300: Patient uses 24 [place] tube. Replaced PEG with 20 [place]. Inflated with 10 cc of normal saline. Abdominal Pain MDM MDM Narrative MDM Narrative:: Scribe Attestation: I, Mariana Irizarry, am scribing for and in the presence of Dr. Cherry. Provider Notation: Although this document has been carefully reviewed, there may still be some phonetic and other typographical errors. These errors are purely grammatical due to imperfections in the software program and should not be construed in any way to compromise the substance of the patient's medical care during this visit. Patient is an 85-year-old female nonverbal, history of dementia, PEG tube dependent meds in the emergency department with dislodged gastrostomy tube. Vital signs and exam as listed. Patient hemodynamically stable not in distress. Given that the PEG tube was dislodged approximately 30 minutes prior to arrival, placed patient in a room, obtained a comfortable PEG tube. The only size that we have available is a 20 [place]. Patient's PEG tube is a 24 [place] unfortunately we do not have the size per nursing staff that checked our supplies. PEG tube was inserted, and inflated with 10 cc of normal saline. No complications. Will perform a KUB with Gastrografin study to confirm appropriate placement. Patient data External records reviewed:: [facility] previous records (Reviewed prior ED records from 08/31/25. Patient was seen for Atrial fibrillation with rapid ventricular response.), EMS form and Detention records Clinical information provided by:: EMS Social determinants that could affect healthcare access:: housing (SNF) Patient has the following chronic illnesses:: Dementia, Atrial Fibrillation, Congestive Heart Failure, Hypertension, Diabetes Mellitus Type 2, Schizophrenia How is presenting disease/condition affected by chronic disease/condition?: exacerbated by Evaluation data The following diagnostics were reviewed and interpreted by me:: radiology exam(s) Lab and/or radiology exams considered but not ordered:: None Interpretation Summary: RADIOLOGY KUB X-Ray: Confirms proper placement of PEG tube. Medications / Prescriptions Medications or Prescriptions considered but not ordered:: None Medication administrations:: See above if any. Consultations Consultation(s) initiated? (list below): No Diagnosis Differential diagnosis abdominal pain: abdominal pain and other (PEG tube dislodgement, PEG tube malfunction) Most likely diagnosis given after review of the tests above:: Malfunction of percutaneous endoscopic gastrostomy (PEG) tube Admission Indicated Admission indicated?: not indicated Explain why admission is indicated or not indicated:: Patient does not meet admission criteria. Admission Request Was there a request for admission?: No Disposition Plan Disposition Plan: Discharge Discharge Attestation Discharge Attestation: The patient and all family members were given an opportunity to ask questions and understood the discharge instructions. Discharge instructions specifically effects, indications for sooner follow up or return to the emergency department, and the expected course of current diagnosis. 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 Fixed Income Acute Prescriptions/Referrals Prescriptions/Med Rec: No Action apixaban 5 mg tablet 5 mg feeding tube BID 30 Days Qty: 60 0RF Nephro-Naheed 0.8 mg Tablet 1 tab G-tube QDAY 30 Days Qty: 30 0RF thiamine mononitrate (vit B1) 100 mg Tablet 100 mg G-tube QDAY 30 Days Qty: 30 0RF multivitamin [Daily Multi-Vitamin] Tablet 1 tab feeding tube QAM 30 Days Qty: 30 0RF valproic acid (as sodium salt) 250 mg/5 mL (5 mL) solution 85 mg feeding tube TID Qty: 500 0RF megestrol 400 mg/10 mL (10 mL) suspension 400 mg feeding tube BID 30 Days Qty: 600 0RF metoprolol tartrate 100 mg tablet 100 mg feeding tube BID 30 Days Qty: 60 0RF metoclopramide HCl 10 mg tablet 10 mg feeding tube Q6H PRN (Reason: nausea and vomiting) Qty: 30 0RF amoxicillin-pot clavulanate 875-125 mg tablet 1 tab PO BID 5 Days Qty: 10 0RF Problem List Clinical Impression: Malfunction of percutaneous endoscopic gastrostomy (PEG) tube Patient/Caregiver Discharge Instructions Education Materials: ED Feeding Tube Replacement Additional Instructions: Today we replaced your PEG tube with a 20 [place] tube. X-ray of the abdomen with Gastrografin confirmed appropriate placement. Please follow-up with your primary care doctor with the next 1 to 2 days. Return immediately if worsening symptoms or new symptoms or concerns Print Language: Yoruba Stand Alone Forms: Kristina Award Info., Patient Portal Info Letter
--- NOTE | 2025-09-07 23:06 | XR_ITS ---
Examination: Abdomen AP single view Technique: AP portable supine abdomen, single view Exam date and time: August, 11:23 p.m. INDICATIONS: Unknown position gastrostomy tube FINDINGS: Gastrostomy tube in the stomach, contrast opacifies the fundus and the body of the stomach, no abnormal extravasation Moderate air in the colon No free air Surgical clips upper right abdomen IMPRESSION: Gastrostomy tube in the stomach
[2025-09-08 00:12] VITALS: BP 98/56; PULSE 98; RESP 18; TEMP 36.6; O2SAT 97
--- NOTE | 2025-09-08 00:13 | PC.NURSE ---
[facility] Nurse Pt wasn't supposed to be sent to hospital- stated facility sent pt before notifying them.
== END 2025-09-08 01:25 ==
LOC: SERX 23:20
PROVIDERS: Emergency Provider Emergency Medicine; PCP Hospitalist
DX: K94.23 Gastrostomy malfunction (principal); Y83.3 Surgical operation with formation of external stoma as the cause of abnormal reaction of the patient, or of later complication, without mention of misadventure at the time of the procedure
CPT/HCPCS: 74018; 99282; Q9963